=== PATIENT | male | born 1945 | race Caucasian/White ===

== ENCOUNTER → 2017-09-30 06:32 | Outpatient (CLI) | payer MEDICARE, SELFPAY ==
--- NOTE | 2017-09-30 | DI.MRI.S_ITS ---
PROCEDURE: MR LUMBAR SPINE WO CON INDICATIONS: lumbar radiculopathy TECHNIQUE: Noncontrast sagittal T1 spin echo and T2 fast echo, sagittal STIR, axial T1 and T2 fast spin echo through the lumbar spine. In cases with scoliosis, additional coronal T2 fast spin echo may be performed. COMPARISON: [facility], MR, L-SPINE WITHOUT CONTRAST, 10/04/2014, 13:34. FINDINGS: Image quality: Excellent. Alignment and Curvature: There is normal bony alignment. Bone Marrow: Marrow is of normal overall signal. No acute vertebral body compression fractures. Spinal Cord: Conus medullaris terminates at the L1-2 level. Visualized cord demonstrates normal signal and size. Paraspinous Soft Tissues: No paravertebral masses. Partially visualized renal cysts. L1-L2: Mild intervertebral disc or loss with broad-based posterior disc bulge. Facet joint and ligamentum flavum hypertrophy. The spinal canal and neural foramen are patent.. L2-L3: Mild intervertebral body disc height loss with broad-based posterior disc bulge and right paracentral disc protrusion. Findings effaces the right lateral recess. Facet joint and ligamentum flavum hypertrophy. Bilateral mild/moderate neural foraminal narrowing. L3-L4: Moderate intervertebral body disc height loss with broad-based posterior disc bulge. Facet joint and ligamentum flavum hypertrophy. There is moderate right and mild/moderate left neural foraminal narrowing. Minimal effacement of the left lateral recess otherwise the central spinal canal is patent. L4-L5: Mild broad-based posterior disc bulge. Facet joint hypertrophy. Mild bilateral neural foraminal narrowing. Patent central spinal canal. L5-S1: Mild broad-based posterior disc bulge. Central spinal canal and neural foramina are patent. IMPRESSION: 1. No significant change since the previous study. 2. Mild age-appropriate degenerative changes cause multilevel mild neural foraminal narrowing most prominent at L2-4. Effacement of the right L2-3 lateral recess otherwise the central spinal canal is patent. Dictated by: Ismael Walters M.D. on 09/30/2017 at 8:50 Approved by: Ismael Walters M.D. on 09/30/2017 at 8:58
== END ==
PROVIDERS: Visit Provider Orthopaedic Surgery
DX: M54.16 Radiculopathy, lumbar region (principal); M48.061 Spinal stenosis, lumbar region without neurogenic claudication; M51.26 Other intervertebral disc displacement, lumbar region
CPT/HCPCS: 72148

== ENCOUNTER 2017-12-02 06:07 | Inpatient (IN) | payer MEDICARE, SELFPAY ==
[2017-11-24 10:00] VITALS: BMI 27.2
[2017-12-02] VITALS (15 sets, daily range): BP systolic 100–154; BP diastolic 58–86; PULSE 52–83; RESP 6–17; TEMP 36.1–36.8; O2SAT 93–100; BMI 25.6
--- NOTE | 2017-12-02 | DI.RAD.S_ITS ---
PROCEDURE: XR LUMBAR SPINE 2-3V INDICATIONS: L2-3 TLIF TECHNIQUE: Fluoroscopic images were obtained during an operative procedure and submitted for interpretation following the completion of the procedure. COMPARISON: [facility], CR, XR LUMBAR SPINE 2 OR 3 VIEWS, 09/22/2017, 13:42. [facility], MR, MR LUMBAR SPINE WO CON, 09/30/2017, 7:05. [facility], CR, L-SPINE 2-3 VIEWS, 08/07/2013, 12:58. FINDINGS: These fluoroscopic images were performed for intraoperative localization. On these images, lumbar spine fixation hardware is seen, with pedicle screws at the apparent L2 and L3 levels. A disc spacer is seen at L2-L3. No cailin intraoperative complication is seen. Please correlate with intraoperative findings. IMPRESSION: Normal intraoperative examination. Dictated by: Mino Cerda M.D. on 12/02/2017 at 10:55 Approved by: Mino Cerda M.D. on 12/02/2017 at 10:56
[2017-12-02] MEDS: LACTATED RINGERS 1,000 ML 42 ML IV ×2 (06:55→10:25)
--- NOTE | 2017-12-02 07:20 | SUR.OPER ---
Prone on spine table, head in foam head support, padded chest and pelvic supports, gel pad at knees, lower legs supported by pillows; nipples, genitalia and toes free of pressure, arms secured on foam padded arm boards at <90 degrees abduction. Tape over blanket at thigh secured to table.
--- NOTE | 2017-12-02 07:55 | PM.PREOP ---
Pre-operative Note Interval Note Pre-op Check: Yes History & Physical Reviewed by Physician, Yes Exam Performed and Yes History & Physical exam performed today by Physician Changes: No
[2017-12-02] MEDS: CEFAZOLIN 2 GM/100 ML FROZ.PIGGY IV ×2 (08:04→16:43)
[2017-12-02] MEDS: BUPIVACAINE 0.25% W/ EPI VIAL 50 ML INJ (08:51)
[2017-12-02] MEDS: BUPIVACAINE LIPOSOME 266 MG/20 ML VIAL INJ (08:53)
[2017-12-02] MEDS: ACETAMINOPHEN IV 1,000 MG/100 ML VIAL 400 MG IV (10:16)
--- NOTE | 2017-12-02 10:33 | PM.OP.1 ---
Operative Date/Time/Diagnoses Date of procedure: 12/02/17 Time of procedure: 08:34 Pre-op diagnosis: 1. L2-3 spondylolisthesis 2. Lumbar scoliosis 3. Lumbar spinal stenosis L2-3, L3-4 Post-op diagnosis: same Procedure & Clinicians Procedure: 1. L2-3 Postero-lateral and posterior interbody fusion 2. L2-3 interbody cage placement. 3. L2-3 decompressive laminectomy with bilateral facetecomies 4. L2-3 Posterior non-segmental instrumentation 5. L3-4 right hemilaminectomy 6. [place] of bone marrow from iliac crest 7. Utilization of microsurgical technique and operating microscope Same procedure as scheduled: Yes Indications: Patient has been having chronic back pain and worsening lumbar radiculopathy. Patient failed multiple conservative management with worsening pain weakness and numbness in her lower extremity. Patient has been having difficulty performing activity of daily living. After discussing risks benefits of treatment options, patient elected proceed with surgery. Surgeon: Alvin Oscar Intermodal Dispatcher: Estephania Luo Click Yes if Unassisted: No Anesthesia Type: General Operative Notes Closure Type: primary Specimen(s): none sent Estimated Blood Loss (mL): 50 Procedure in detail: Patient was seen in the preoperative area. Risks and benefits of the surgery was discussed with the patient. Informed consent was obtained from the patient and placed in the chart. Surgical site was marked. Patient was taken to the operative room. General anesthesia was administered. Prophylactic antibiotic was given to the patient less than 30 min before the incision was made. Patient was placed into a prone position on the Feng table. Patient's back was then prepped and draped in the sterile fashion. Time-out was performed at this time. Using AP and lateral C-arm imaging the interval between L2-3 L3-4 was identified and marked on patient's back. A 2 inch incision 2 in from midline was made on the right side first. The fascia was incised in line with skin incision. Globus MARS retractors was placed inside the incision and docked onto the L2 lamina. Using microsurgical technique and operating microscope, a L2 laminectomy and L2-3 facetectomy was performed using a Kerrison rongeur. The disc space at L2-3 was identified. And a total diskectomy was performed at L2-3 level. The endplates were decorticated using a rasp and shaver. The total diskectomy and decortication was performed at L2-3 level in order to to accomplish a L2-3 fusion. The local bone from the laminectomy and facetectomy was saved for local bone grafting. After the total diskectomy and decortication was completed, Globus viacell bone graft material was combined with local bone that was harvested earlier. At this time, a separate skin is incision was made over the iliac crest. A Jamshidi needle was inserted into the iliac crest through a separate skin incision. 5 cc of bone marrow aspiration was obtained through the separate skin incision using a Jamshidi needle from the iliac crest. The bone marrow aspiration was combined with local bone and the via cell bone grafting material. The bone grafting material was placed into the L2-3 interbody space along with a expandable cage. The cage was expanded to its maximum height using the torque limiting screwdriver. At this time the MARS retractor was redirected over the L3 lamina. Using microsurgical technique and operating microscope, a L3-4 heminectomy was performed using the Kerrison rongeur. The ligamentum flavum was also resected at the side of the hemilaminectomy for further decompression of the epidural space. At this time a mirror image incision was made on the left side. The fascia was incised in line with the skin incision. Globus MARS retractor was inserted and docked onto the L2-3 posterolateral gutter. Using the power drill, posterior-lateral decortication was performed at L2-3 level until bleeding cortical bone was identified. The remaining bone grafting material was placed into the L2-3 posterior lateral gutter he order to accomplish posterolateral fusion at the L2-3 level. Using the double C-arm technique, pedicle screws were placed into the L2 and L3 pedicles bilaterally. This was done by placing the Jamshidi needle into the pedicles, then placing the guidewires over the Jamshidi needle, and finally placing the cannulated screws over the guidewires bilaterally. After the pedicle screws were placed, 2 titanium rods was locked into the heads of the pedicle screws using locking caps and torque limiting screwdriver. After all the hardware was placed, and confirmed with AP and lateral C-arm imaging, the wound was then irrigated with sterile normal saline and packed with Ray-Heriberto gauze for 3 min to accomplish hemostasis. After the gauze was removed the deep fascia was closed with #1 Vicryl suture. The subcutaneous layer was closed with 2-0 Vicryl. The skin was closed with skin david. Patient tolerated the procedure well. There were no complications. Complications: none Condition: stable Disposition: Acute Care Plan for aftercare: Admit to inpatient hospital
[2017-12-02] MEDS: HYDROMORPHONE 2 MG INJ 0.5 MG IV ×4 (11:10→11:50)
[2017-12-02] MEDS: LORazepam 2 MG/ML SYRINGE 0.25 MG IV ×2 (11:17→11:42)
[2017-12-02] MEDS: hydrOXYzine 50 MG/ML INJ 25 MG IM (11:18)
[2017-12-02] MEDS: fentaNYL 100 MCG/2 ML INJ 50 MCG IV ×2 (11:23→11:36)
[2017-12-02] MEDS: ONDANSETRON 4 MG/2 ML INJ IV (11:24)
[2017-12-02] MEDS: METOCLOPRAMIDE 10 MG/2 ML INJ IV (11:30)
--- NOTE | 2017-12-02 14:57 | PC.NURSE ---
arrival pt arrived from PACU in bed. repositioned on arrival. Dressing CDI to back. pt on 2L O2, sats 93-97%. Pt easily arrousable but sleeping comfortably no c/o pain. call light within reach.
--- NOTE | 2017-12-02 15:25 | PT.IIE ---
Current Diagnoses Other spondylosis with radiculopathy, lumbar region (12/02/17) Spinal stenosis, lumbar region without neurogenic claudication (12/02/17) Intervertebral disc disorders with radiculopathy, lumbar region (12/02/17) Surgery Performed Operation Date: 12/02/17 07:45 Actual Procedures p L3-4 Right Hemilaminectomy, L2-3 TLIF w/Posterior Instru.(Not Applicable) - Alvin Oscar MD Surgical History (Last Updated 11/24/17 @ 10:32 by Lorna No RN) History of arthroscopy of right shoulder (Acute) Hx of heart artery stent (Acute) Hx of lithotripsy (Acute) Medical History (Last Updated 11/24/17 @ 10:36 by Lorna No RN) Arthritis (Acute) Benign essential tremor (Acute) CAD (coronary artery disease) (Acute) Carotid artery stenosis (Acute) DVT (deep venous thrombosis) (Acute) HTN (hypertension) (Acute) Hyperlipidemia (Acute) Kidney stones (Acute) PAD (peripheral artery disease) (Acute) Sciatica (Acute) Sinus bradycardia (Acute) Skin cancer (Acute) Trigger thumb, left thumb (Acute) Walking pneumonia (Acute) Physical Therapy Inpatient Evaluation/Re-Eval M1 PT/OT-IP Prior Functional Status Start: 12/02/17 16:35 Freq: NEEDED Status: Active Protocol: Document 12/02/17 15:25 AB (Rec: 12/02/17 16:51 AB [email or web address]) Medical Review Prior Functional Status Medical History Reviewed Yes Communication able to make needs known Mobility and Gait pt stated that he is independent with all mobilities and ambulation without AD Social History Household Members none Living Arrangements House Number of Floors (Floors) One Floor Number of Stairs To Enter/Railing? none Home Environment High Toilet Walk in Shower Tub/Shower Built-In Shower Seat Home Equipment Front Wheel Walker Straight Cane Employment Status Retired Additional Social History Comment stated that his daughter in law with stay with him for 1 week to assist him. M2 PT-IP Current Condition Start: 12/02/17 16:35 Freq: NEEDED Status: Active Protocol: Document 12/02/17 15:25 AB (Rec: 12/02/17 16:51 AB [email or web address]) Physical Therapy Current Condition Current Condition Evaluation Date 12/02/17 Treatment Diagnosis L2-3 fusion,cage placement, laminectomy &instrumentation, L3-4 hemilami Onset Date 12/02/17 Precautions Lumbar Precautions Log Roll No Twisting Limit Bending Lifting Restriction of 10 lbs Gait Belt above Incisional Area Other Precautions Falls M3 PT-IP Subjective Start: 12/02/17 16:35 Freq: NEEDED Status: Active Protocol: Document 12/02/17 15:25 AB (Rec: 12/02/17 16:51 AB [email or web address]) Subjective Physical Therapy Visit Type Type Initial Evaluation Visit Start Time 15:25 Visit Stop Time 16:05 Total Visit Minutes 40 Number of MENTAL HEALTH ORDERLY Visits 0 Physical Therapy Visit Comments Patient Comments i want to get up Therapy Pain Assessment Pain When Pain Assessed During Mobility Pain Present Pain Present Pain Reported Location Lower Back Intensity 6 Scale Used Numeric (1 - 10) Description Tightness Pain Management Techniques Re-positioning Timing of Activity with Medications M4 PT-IP Mobility and Gait Start: 12/02/17 16:35 Freq: NEEDED Status: Active Protocol: Document 12/02/17 15:25 AB (Rec: 12/02/17 16:51 AB [email or web address]) PT-Bed Mobility Assessment Rolling Type of Rolling Log Rolling Level of Assist Minimal Assistance Supine to Sit Supine to Sit Moderate Assistance Sit to Supine Sit to Supine Minimal Assistance 1 Person Assistance Scooting Scooting to Edge of Bed Minimal Assistance PT-Transfer Assessment Sit to and From Stand Sit to and from Stand Minimal Assistance Equipment Transfer Assistive Device Gait Belt Front Wheeled Walker Orthotic/Prosthetic Devices or Brace: No Transfers Transfer Destination Chair Transfer Technique Stand Step Pivot Transfer Ability Level of Assist Moderate Assistance 1 Person Assistance Use of Upper Extremities Comments Mobility Comments pt with c/o dizziness with standing: BP 143/89 pt presents with (+) B hands tremors and increases with activity. Gait Assessment Gait Gait Assistance Required: Maximum Assistance Distance (Feet) 5 Able to Maintain Weight Bearing Status Yes During Gait Assistive Devices Assistive Device Gait Belt Front Wheeled Walker Orthotic/Prosthetic Devices or Brace: No Gait Deviations General Gait Pattern Antalgic Decreased Stride Length Decreased Feet Clearance Step-to Gait Factors Limiting Gait Function Factors Limiting Gait Function Decreased Activity Tolerance Decreased Strength Difficulty Following Directions Limited Range of Motion Pain Poor Balance Poor Safety Awareness Comments Gait Comments pt presents with shuffling gait with increase bilateral knee flexion during standing and ambulation. able to ambulate ~ 5 ft using FWW max A and cues and c/o increase dizziness and pt assist to sit back on EOB. BP 138/87 pt requested to just go back in bed and assisted requiring min A and cues for log roll bed mobility. positioned pt in bed. call light and table placed within reach. PT-Balance Assessment Sitting Balance and Reactions Static Sitting Balance Ability Good Dynamic Sitting Balance Ability Good Standing Balance and Reactions Static Standing Balance Ability Fair Dynamic Standing Balance Ability Poor Device Used FWW M5 PT-IP Objective Assessments Start: 12/02/17 16:35 Freq: NEEDED Status: Active Protocol: Document 12/02/17 15:25 AB (Rec: 12/02/17 16:51 AB [email or web address]) Orientation Orientation/Cognition Level of Alertness Alert Orientation Name Age Birthday Month Date Year Day of Week Place Situation Safety Awareness Decreased Safety Awareness Comments pt is alert but seems a little drowsy Gross Range of Motion Lower Extremity ROM Assessment Within Functional Limits Strength Lower Extremity Strength Assessment Within Functional Limits Muscle Tone Muscle Tone WNL Yes M6 PT-IP Treatment Start: 12/02/17 16:35 Freq: NEEDED Status: Active Protocol: Document 12/02/17 15:25 AB (Rec: 12/02/17 16:51 AB [email or web address]) Physical Therapy Treatment Education Education Provided Precautions Weight Bearing Status Post-Op Packet Safety M7 PT-IP Assessment and Plan Start: 12/02/17 16:35 Freq: NEEDED Status: Active Protocol: Document 12/02/17 15:25 AB (Rec: 12/02/17 16:51 AB [email or web address]) PT Summary Assessment and Plan Potential Rehabilitation Potential Fair Status of Condition at Evaluation Evolving Summary Impairments Pain ROM Strength Balance Coordination Sensation Tone Cognition Bed Mobility Transfers Gait Activity Tolerance Assessment Summary pt requiring one person assist with mobility and unable to tolerate much activity. requiring max A with ambulation using FWW. d/c plan depending on pt's progress. pt plans to go home with his daughter in law to assist and stay with him for 1 week. caregiver training will be conducted when appropriate and d/c plan depending if daughter in law will be able to safely assist pt at home. pt may require homehealth PT when going home but at this time, pt will benefit from SNF rehab. Goals Bed Mobility Goal Standby Assistance Transfer Goal Standby Assistance Gait Goal Standby Assistance Gait Distance 100 Days to Meet Goals 3 Frequency of Treatment Frequency Of Treatment Twice a Day Treatment Plan Physical Therapy Treatment Plan Bed Mobility Training Transfer Training Gait Training Therapeutic Exercise Balance Retraining Post Op Education Discharge Planning Hot or Cold Pack Neuromuscular Re-ed Coordination Retraining Manual Therapy Other Recommendations and Next Treatment ambulation, caregiver training Focus Recommendations To Nursing Amount of Assist Needed 1 Person Assist Discharge Recommendations PT Discharge Recommendations Home with 04/10 Assist Home Health SNF Rehab
[2017-12-02] MEDS: SODIUM CHLORIDE 0.9% 1,000 ML 100 ML IV (16:42)
[2017-12-02] MEDS: hydrOXYzine pamoate 25 MG CAPSULE PO ×2 (18:16→22:00)
[2017-12-02] MEDS: OXYCODONE IR 5 MG TABLET 10 MG PO ×2 (18:16→22:00)
[2017-12-02] MEDS: ISOSORBIDE MONONITRATE ER 30 MG TABLET PO (18:16)
[2017-12-02] MEDS: INFLUENZA VACCINE 0.5 ML SYRINGE IM (18:20)
[2017-12-02] MEDS: CARVEDILOL 3.125 MG TABLET 1.56 MG PO (20:02)
[2017-12-02] MEDS: DOCUSATE 100 MG CAPSULE PO (20:02)
[2017-12-02] MEDS: ASPIRIN EC 81 MG TABLET PO (20:02)
--- NOTE | 2017-12-02 21:27 | PC.NURSE ---
SHIFT NOTE slightly sleepy but arouses to verbal stimuli. spO2 WNL on room air, no desats noted even when pt sleeping. back dressing CDI. denies numbness/tingling. pt c/o pain rated 9/10. PRN vistaril and oxycodone given with good effects. able to stand/transfer with 1P mod assist and FWW. pt prefers to sit up in chair. pt currently resting. call light within reach.
[2017-12-03] VITALS (9 sets, daily range): BP systolic 106–165; BP diastolic 54–69; PULSE 58–75; RESP 16–18; TEMP 36.7–37.2; O2SAT 95–99
[2017-12-03] MEDS: CEFAZOLIN 2 GM/100 ML FROZ.PIGGY IV (00:31)
[2017-12-03] MEDS: OXYCODONE IR 5 MG TABLET 10 MG PO ×6 (00:33→23:56)
[2017-12-03] MEDS: SODIUM CHLORIDE 0.9% 1,000 ML 100 ML IV (03:16)
[2017-12-03] MEDS: hydrOXYzine pamoate 25 MG CAPSULE PO (06:05)
[2017-12-03 06:28] LABS: Hematocrit 35.8 % (41-53); Hemoglobin 12.4 g/dL (13.5-17.5)
[2017-12-03] MEDS: SODIUM CHLORIDE 0.9% FLUSH 10 ML IV ×2 (09:10→20:46)
[2017-12-03] MEDS: ROSUVASTATIN 10 MG TABLET 20 MG PO (09:11)
[2017-12-03] MEDS: LISINOPRIL 10 MG TABLET PO (09:12)
[2017-12-03] MEDS: DOCUSATE 100 MG CAPSULE PO ×2 (09:13→20:25)
[2017-12-03] MEDS: CARVEDILOL 3.125 MG TABLET 1.56 MG PO ×2 (09:13→20:23)
[2017-12-03] MEDS: CHOLECALCIFEROL (VITAMIN D3) 1,000 UNIT TABLET 1000 UNIT PO (09:13)
--- NOTE | 2017-12-03 09:27 | CM.DANOTE ---
Addendum entered by HERO Carter 12/03/17 14:30: ADD: Per PT, pt making progress and was 1PA and currently recommending likely safe d/c home with 24/7 assist by DIL and plan for CG training tomorrow prior to discharge. Plan: SW to follow tomorrow morning with pt regarding his interest in HH and if needed by time of discharge. BF Original Note: Patient is a 72 year old male who was admitted on 12/02/17 for TLIF. Pt has MCR and AARP for insurance and his PCP is not listed. EMR was reviewed. Per MD, pt tolerated procedure well but has a hx of pain management issues and medication not being very effective. Per PT, currently recommending SNF rehab but pending his progress since he is very motivated for home could make home with HH possible with family to stay for assist. SW met bedside with pt and adult son and explained role and updated white board. Pt confirmed that he lives at home alone in [place] since his spouse in June 2017 this year. Pt states that he is very Independent at baseline at drives, bikes, and gets out and about regularly. Pt states that he has 3 adult children who live in [place] and are supportive and will help if needed. Pt denies any hx of HH or SNF but states his preference would be home with his Dtr inlaw to stay with him for a week to assist and HH. Plan: SW to follow closely for further PT/OT today to determine if pt is safe for home with DIL to assist and HH vs SNF. Pt really wants home with HH. HERO Carter Discharge Planning/Care Management CM Discharge Assessment Start: 12/03/17 09:24 Freq: Status: Active Protocol: Document 12/03/17 09:25 BF (Rec: 12/03/17 09:27 [email or web address]) Discharge Planning Assessment Assigned Interface Designer HERO Soler Advance Directives? No Advance Directives on File Yes History Provided By Patient Medical Record Has Patient been admitted in last 30 No days? Prior Living Arrangements House Household Members none Type of transporation used prior to Drives own vehicle admit Comment Very Independent at baseline, very motivated to return home. Independent with ADL's Yes Is patient alert and oriented? Yes Caregiver for Another No DME Already Rented / Owned Elevated Toilet Seat FWW / Walker Cane Patient/Family Preference Home with Home Health Barriers to Discharge No Discharge Plan Home with Home Health Community [facility] Physical Therapy Occupational Therapy Transportation Arrangement Family to provide assist at d/ c pending pt's progress with PT If patient plan is home with home health No : Has signed face to face form been completed? Inpatient Status as of 12/02/17 Medicare Choice List Provided No SNF/HH Preference Waiting for further PT/OT Whiteboard Updated in Patient Room with Yes name and ext. # of Interface Designer Review Status In Process Please Provide Date Initial DC 12/03/17 Assessment Was Performed Next Review Type Continued Stay Review
--- NOTE | 2017-12-03 10:18 | PM.PNPO.1 ---
Subjective Date Patient Seen: 12/03/17 Time Patient Seen: 10:18 Interval history: POD #1 status post lumbar fusion with Dr. Oscar. Patient states his pain is at an 8/10 and not well controlled. He is urinating well. Patient has a history of DVT after surgery, at this time no clopidogrel until discharged due to increased risk of spinal epidural hematoma after surgery. Denies chest pain or shortness of breath. Exam Vital Signs (past 8 hours): - 12/03/17 04:00 12/03/17 07:40 12/03/17 09:13 Temperature 98.6 F 98.2 F Pulse Rate 58 L 61 61 Respiratory Rate 17 16 Blood Pressure 107/54 L 116/61 116/61 Pulse Oximetry 95 95 Oxygen Delivery Method Room Air Oxygen Flow Rate 0 Narrative Exam Narrative: Patient lying in bed in no acute distress. He is alert and oriented x3. Calves are soft, compressible, nontender bilaterally. Sensation intact light touch throughout bilateral lower extremities. Pulses are symmetrical. Objective Labs Result Diagrams: 12/03/17 05:52 Labs: Laboratory Results - last 24 hr 12/03/17 05:52 Hgb 12.4 L Hct 35.8 L Assessment & Plan Post-op (1) Status post lumbar and lumbosacral fusion by anterior technique: Current Visit: Yes Status: Acute Postoperative Procedures Operation Date: 12/02/17 07:45 Actual Procedures Side Surgeon p L3-4 Right Hemilaminectomy, L2-3 TLIF w/Posterior Instru. Not Applicable Alvin Oscar MD POD #1 status post lumbar fusion with Dr. Oscar. Will start patient on one time 10 mg Decadron dose. Continue current pain medication. Continue ASA and SCDs for DVT prophylaxis. Plan to restart clopidogrel once discharged. He will work with physical therapy today. No excessive bending, lifting, or twisting. Patient will likely DC in next 1-2 days once mobilizing safely and pain adequately controlled. Quality VTE Deep Vein Thrombosis/Pulmonary Embolism Present on Admission: No
--- NOTE | 2017-12-03 10:24 | PT.IPTN ---
Current Diagnoses Other spondylosis with radiculopathy, lumbar region (12/02/17) Spinal stenosis, lumbar region without neurogenic claudication (12/02/17) Intervertebral disc disorders with radiculopathy, lumbar region (12/02/17) Arthrodesis status (12/02/17) Surgery Performed Operation Date: 12/02/17 07:45 Actual Procedures p L3-4 Right Hemilaminectomy, L2-3 TLIF w/Posterior Instru.(Not Applicable) - Alvin Oscar MD Physical Therapy Treatment Note M2 PT-IP Current Condition Start: 12/02/17 16:35 Freq: NEEDED Status: Active Protocol: Document 12/02/17 15:25 AB (Rec: 12/02/17 16:51 AB [email or web address]) Physical Therapy Current Condition Current Condition Evaluation Date 12/02/17 Treatment Diagnosis L2-3 fusion,cage placement, laminectomy &instrumentation, L3-4 hemilami Onset Date 12/02/17 Precautions Lumbar Precautions Log Roll No Twisting Limit Bending Lifting Restriction of 10 lbs Gait Belt above Incisional Area Other Precautions Falls M3 PT-IP Subjective Start: 12/02/17 16:35 Freq: NEEDED Status: Active Protocol: Document 12/03/17 10:24 AB (Rec: 12/03/17 13:20 AB [id number]) Subjective Physical Therapy Visit Type Type Treatment Note Visit Start Time 10:24 Visit Stop Time 10:50 Total Visit Minutes 26 Number of FUGITIVE DETECTIVE Visits 0 Physical Therapy Visit Comments Patient Comments pt agreeable to do PT Therapy Pain Assessment Pain When Pain Assessed At Rest Pain Present Pain Present Pain Reported Location Lower Back Intensity 5 Scale Used Numeric (1 - 10) Pain Management Techniques Apply Cold Timing of Activity with Medications M4 PT-IP Mobility and Gait Start: 12/02/17 16:35 Freq: NEEDED Status: Active Protocol: Document 12/03/17 10:24 AB (Rec: 12/03/17 13:20 AB [id number]) PT-Transfer Assessment Sit to and From Stand Sit to and from Stand Minimal Assistance 1 Person Assistance Use of Upper Extremities Equipment Transfer Assistive Device Gait Belt Front Wheeled Walker Orthotic/Prosthetic Devices or Brace: No Transfers Transfer Destination Bed Comments Mobility Comments completed sit <>stand x 4 reps requiring min A and cues for techniques and safety. Gait Assessment Gait Gait Assistance Required: Minimum Assistance Distance (Feet) 40 Able to Maintain Weight Bearing Status Yes During Gait Assistive Devices Assistive Device Gait Belt Front Wheeled Walker Orthotic/Prosthetic Devices or Brace: No Gait Deviations General Gait Pattern Decreased Stride Length Decreased Feet Clearance Factors Limiting Gait Function Factors Limiting Gait Function Decreased Activity Tolerance Decreased Strength Limited Range of Motion Pain Poor Balance Poor Safety Awareness M5 PT-IP Objective Assessments Start: 12/02/17 16:35 Freq: NEEDED Status: Active Protocol: Document 12/02/17 15:25 AB (Rec: 12/02/17 16:51 AB [email or web address]) Orientation Orientation/Cognition Level of Alertness Alert Orientation Name Age Birthday Month Date Year Day of Week Place Situation Safety Awareness Decreased Safety Awareness Comments pt is alert but seems a little drowsy Gross Range of Motion Lower Extremity ROM Assessment Within Functional Limits Strength Lower Extremity Strength Assessment Within Functional Limits Muscle Tone Muscle Tone WNL Yes M6 PT-IP Treatment Start: 12/02/17 16:35 Freq: NEEDED Status: Active Protocol: Document 12/03/17 10:24 AB (Rec: 12/03/17 13:20 AB [id number]) Physical Therapy Treatment Education Education Provided Precautions Weight Bearing Status Post-Op Packet Safety M7 PT-IP Assessment and Plan Start: 12/02/17 16:35 Freq: NEEDED Status: Active Protocol: Document 12/03/17 10:24 AB (Rec: 12/03/17 13:20 AB [id number]) PT Summary Assessment and Plan Potential Rehabilitation Potential Good Summary Impairments Pain ROM Strength Balance Coordination Sensation Bed Mobility Transfers Gait Activity Tolerance Progress Towards Goals Progressing Toward Goals Assessment Summary pt requiring one person assist with mobility. pt plans to go home with daughter in law to assist him. caregiver set up for tomorrow. pt stated that he will let his daughter in law know. Goals Bed Mobility Goal Standby Assistance Transfer Goal Standby Assistance Gait Goal Standby Assistance Gait Distance 100 Days to Meet Goals 3 Frequency of Treatment Frequency Of Treatment Twice a Day Treatment Plan Physical Therapy Treatment Plan Bed Mobility Training Transfer Training Gait Training Therapeutic Exercise Balance Retraining Post Op Education Discharge Planning Hot or Cold Pack Neuromuscular Re-ed Coordination Retraining Manual Therapy Other Recommendations and Next Treatment ambulation, caregiver training Focus Recommendations To Nursing Amount of Assist Needed 1 Person Assist Discharge Recommendations PT Discharge Recommendations Home with 04/10 Assist
[2017-12-03] MEDS: ASPIRIN EC 81 MG TABLET PO ×2 (10:45→20:25)
[2017-12-03] MEDS: DEXAMETHASONE 4 MG TABLET 10 MG PO (10:45)
--- NOTE | 2017-12-03 15:15 | PT.IPTN ---
Current Diagnoses Other spondylosis with radiculopathy, lumbar region (12/02/17) Spinal stenosis, lumbar region without neurogenic claudication (12/02/17) Intervertebral disc disorders with radiculopathy, lumbar region (12/02/17) Arthrodesis status (12/02/17) Surgery Performed Operation Date: 12/02/17 07:45 Actual Procedures p L3-4 Right Hemilaminectomy, L2-3 TLIF w/Posterior Instru.(Not Applicable) - Alvin Oscar MD Physical Therapy Treatment Note M2 PT-IP Current Condition Start: 12/02/17 16:35 Freq: NEEDED Status: Active Protocol: Document 12/02/17 15:25 AB (Rec: 12/02/17 16:51 AB [email or web address]) Physical Therapy Current Condition Current Condition Evaluation Date 12/02/17 Treatment Diagnosis L2-3 fusion,cage placement, laminectomy &instrumentation, L3-4 hemilami Onset Date 12/02/17 Precautions Lumbar Precautions Log Roll No Twisting Limit Bending Lifting Restriction of 10 lbs Gait Belt above Incisional Area Other Precautions Falls M3 PT-IP Subjective Start: 12/02/17 16:35 Freq: NEEDED Status: Active Protocol: Document 12/03/17 15:15 AB (Rec: 12/03/17 16:47 AB [id number]) Subjective Physical Therapy Visit Type Type Progress Note Visit Start Time 15:15 Visit Stop Time 15:55 Total Visit Minutes 40 Number of NEPHROLOGY SOCIAL WORKER Visits 0 Physical Therapy Visit Comments Patient Comments pt agreeable to do PT Therapy Pain Assessment Pain When Pain Assessed At Rest Pain Present Pain Present Pain Reported Location Lower Back Intensity 6 Scale Used Numeric (1 - 10) M4 PT-IP Mobility and Gait Start: 12/02/17 16:35 Freq: NEEDED Status: Active Protocol: Document 12/03/17 15:15 AB (Rec: 12/03/17 16:47 AB [id number]) PT-Bed Mobility Assessment Rolling Type of Rolling Log Rolling Level of Assist Standby Assistance Supine to Sit Supine to Sit Standby Assistance Sit to Supine Sit to Supine Standby Assistance Scooting Scooting to Edge of Bed Standby Assistance PT-Transfer Assessment Sit to and From Stand Sit to and from Stand Standby Assistance Equipment Transfer Assistive Device Gait Belt Front Wheeled Walker Transfers Transfer Destination Chair Toilet Transfer Technique Stand Step Pivot Transfer Ability Level of Assist Standby Assistance 1 Person Assistance Comments Mobility Comments bed mobility training and transfer training conducted. pt. required increase cues for sequencing, techniques and safety. pt seemed to have increase confusion this afternoon affecting motor planning. informed nurse. Gait Assessment Gait Gait Assistance Required: Standby Assistance Distance (Feet) 100 Able to Maintain Weight Bearing Status Yes During Gait Assistive Devices Assistive Device Gait Belt Front Wheeled Walker Orthotic/Prosthetic Devices or Brace: No Gait Deviations General Gait Pattern Decreased Stride Length Decreased Feet Clearance Factors Limiting Gait Function Factors Limiting Gait Function Decreased Activity Tolerance Decreased Strength Difficulty Following Directions Incoordination Limited Range of Motion Pain Poor Balance Poor Safety Awareness M5 PT-IP Objective Assessments Start: 12/02/17 16:35 Freq: NEEDED Status: Active Protocol: Document 12/02/17 15:25 AB (Rec: 12/02/17 16:51 AB [email or web address]) Orientation Orientation/Cognition Level of Alertness Alert Orientation Name Age Birthday Month Date Year Day of Week Place Situation Safety Awareness Decreased Safety Awareness Comments pt is alert but seems a little drowsy Gross Range of Motion Lower Extremity ROM Assessment Within Functional Limits Strength Lower Extremity Strength Assessment Within Functional Limits Muscle Tone Muscle Tone WNL Yes M6 PT-IP Treatment Start: 12/02/17 16:35 Freq: NEEDED Status: Active Protocol: Document 12/03/17 15:15 AB (Rec: 12/03/17 16:47 AB [id number]) Physical Therapy Treatment Education Education Provided Precautions Weight Bearing Status Post-Op Packet Safety M7 PT-IP Assessment and Plan Start: 12/02/17 16:35 Freq: NEEDED Status: Active Protocol: Document 12/03/17 15:15 AB (Rec: 12/03/17 16:47 AB [id number]) PT Summary Assessment and Plan Potential Rehabilitation Potential Good Summary Impairments Pain ROM Strength Balance Coordination Sensation Tone Cognition Bed Mobility Transfers Gait Activity Tolerance Progress Towards Goals Progressing Toward Goals Assessment Summary pt progressing well with mobility but seemed to have increase confusion this afternoon affecting motor planning requiring increase cues for all tasks. Caregiver training is set up for 9 am tomorrow morning with daughter in law and son. Pt stated that he will inform family regarding caregiver training. Goals Bed Mobility Goal Standby Assistance Transfer Goal Standby Assistance Gait Goal Standby Assistance Gait Distance 100 Days to Meet Goals 3 Frequency of Treatment Frequency Of Treatment Twice a Day Treatment Plan Physical Therapy Treatment Plan Bed Mobility Training Transfer Training Gait Training Therapeutic Exercise Balance Retraining Post Op Education Discharge Planning Hot or Cold Pack Neuromuscular Re-ed Coordination Retraining Manual Therapy Other Recommendations and Next Treatment ambulation, caregiver training Focus Recommendations To Nursing Amount of Assist Needed 1 Person Assist Discharge Recommendations PT Discharge Recommendations Home with 24/7 Assist
[2017-12-03] MEDS: ISOSORBIDE MONONITRATE ER 30 MG TABLET PO (16:36)
--- NOTE | 2017-12-03 17:35 | OT.IP.EVAL ---
Current Diagnoses Other spondylosis with radiculopathy, lumbar region (12/02/17) Spinal stenosis, lumbar region without neurogenic claudication (12/02/17) Intervertebral disc disorders with radiculopathy, lumbar region (12/02/17) Arthrodesis status (12/02/17) Surgery Performed Operation Date: 12/02/17 07:45 Actual Procedures p L3-4 Right Hemilaminectomy, L2-3 TLIF w/Posterior Instru.(Not Applicable) - Alvin Oscar MD Past Medical History (Last Updated 11/24/17 @ 10:36 by Lorna No, RN) Arthritis (Acute) Benign essential tremor (Acute) CAD (coronary artery disease) (Acute) Carotid artery stenosis (Acute) DVT (deep venous thrombosis) (Acute) HTN (hypertension) (Acute) Hyperlipidemia (Acute) Kidney stones (Acute) PAD (peripheral artery disease) (Acute) Sciatica (Acute) Sinus bradycardia (Acute) Skin cancer (Acute) Trigger thumb, left thumb (Acute) Walking pneumonia (Acute) Surgical History (Last Updated 11/24/17 @ 10:32 by Lorna No RN) History of arthroscopy of right shoulder (Acute) Hx of heart artery stent (Acute) Hx of lithotripsy (Acute) Occupational Therapy Inpatient Evaluation/Re-Eval M1 PT/OT-IP Prior Functional Status Start: 12/02/17 16:35 Freq: NEEDED Status: Active Protocol: Document 12/02/17 15:25 AB (Rec: 12/02/17 16:51 AB [email or web address]) Medical Review Prior Functional Status Medical History Reviewed Yes Communication able to make needs known Mobility and Gait pt stated that he is independent with all mobilities and ambulation without AD Social History Household Members none Living Arrangements House Number of Floors (Floors) One Floor Number of Stairs To Enter/Railing? none Home Environment High Toilet Walk in Shower Tub/Shower Built-In Shower Seat Home Equipment Front Wheel Walker Straight Cane Employment Status Retired Additional Social History Comment stated that his daughter in law with stay with him for 1 week to assist him. M1 PT/OT-IP Prior Functional Status Start: 12/03/17 17:18 Freq: NEEDED Status: Active Protocol: Document 12/03/17 14:05 [facility] (Rec: 12/03/17 17:34 [facility] [email or web address]) Medical Review Prior Functional Status Medical History Reviewed Yes Communication able to make needs known Mobility and Gait pt stated that he is independent with all mobilities and ambulation without AD Social History Household Members none Living Arrangements House Number of Floors (Floors) One Floor Number of Stairs To Enter/Railing? none Home Environment High Toilet Walk in Shower Tub/Shower Built-In Shower Seat Home Equipment Front Wheel Walker Straight Cane Employment Status Retired Additional Social History Comment stated that his daughter in law with stay with him for 1 week to assist him. M2 OT-IP Current Condition Start: 12/03/17 17:18 Freq: Status: Active Protocol: Document 12/03/17 14:05 [facility] (Rec: 12/03/17 17:34 [facility] [email or web address]) Occupational Therapy Current Condition Current Condition Evaluation Date 12/03/17 Treatment Diagnosis Spinal Stenosis Diagnosis Onset Date 12/02/17 Post Operative Precautions Lumbar Precautions Log Roll No Twisting Limit Bending Lifting Restriction of 10 lbs Gait Belt above Incisional Area Other Precautions Falls M3 OT- IP Subjective and Pain Start: 12/03/17 17:18 Freq: Status: Active Protocol: Document 12/03/17 14:05 [facility] (Rec: 12/03/17 17:34 [facility] [email or web address]) OT- Subjective Occupational Therapy Visit Type Type Initial Evaluation Visit Start Time 14:05 Visit Stop Time 14:35 Total Visit Minutes 30 Occupational Therapy Visit Comments Patient/Caregiver Goals Pt wanting to go home when medically stable. OT Pain Assessment Pain When Pain Assessed At Rest Pain Present Pain Present Pain Reported Location Lower Back Intensity 8 M4 OT- IP ADL's Start: 12/03/17 17:18 Freq: Status: Active Protocol: Document 12/03/17 14:05 [facility] (Rec: 12/03/17 17:34 [facility] [email or web address]) OT ADL-Dressing General Eval Lower Body Dressing Ability Maximum Assistance Areas Needing Assistance Socks Comments OT Dressing Comments Pt has all AED at home for LB dressing and has good understanding for use. OT ADL-Toileting General Evaluation Toileting Ability Standby Assistance Comments OT Toileting Comments Pt able to use FWW to get into bathroom and use of urinal. Suggested pt to use urinal at home as per pt bathroom 20ft away. M6 OT- IP Functional Cognition Start: 12/03/17 17:18 Freq: Status: Active Protocol: Document 12/03/17 14:05 [facility] (Rec: 12/03/17 17:34 [facility] [email or web address]) Cognitive Factors Limiting Selfcare Function Cognitive Ability Level of Alertness Alert Patient Orientation Name Place Situation Attention Span Ability Capable of Focused Attention Capable of Sustained Attention Ability to Follow Commands Able to Follow Multi-Step Commands Memory Description No Deficits Noted Safety Awareness Underestimates Need for Assistance Cognitive Comments Cognitive Assessment Comments Pt able to recall all precautions and follow commands with good safety and understanding. OT- Vision and Hearing OT- Hearing Assessment OT- Hearing Assessment WFL M7 OT- IP Mobility and Balance Start: 12/03/17 17:18 Freq: Status: Active Protocol: Document 12/03/17 14:05 [facility] (Rec: 12/03/17 17:34 [facility] [email or web address]) OT- Bed Mobility Assessment Rolling Type of Rolling Roll to Right Level of Assistance Standby Assistance Supine to Sit Supine to Sit Assist Standby Assistance Sit to Supine Sit to Supine Assist Standby Assistance OT-Transfer Assessment Sit to and From Stand Sit to and from Stand Contact Guard Assistance Transfers Transfer Ability Standby Assistance Contact Guard Assistance Technique Transfer Destination Bed Transfer Technique Stand Step Pivot Devices Transfer Assistive Devices Gait Belt Front Wheeled Walker OT- Balance Assessment Sitting Balance and Reactions Static Sitting Balance Ability Normal Dynamic Sitting Balance Ability Normal Standing Balance and Reactions Static Standing Balance Ability Good M8 OT- IP Objective Assessments Start: 12/03/17 17:18 Freq: Status: Active Protocol: Document 12/03/17 14:05 [facility] (Rec: 12/03/17 17:34 [facility] [email or web address]) OT Gross Range of Motion Upper Extremity Range of Motion Assessment Within Functional Limits OT Strength Upper Extremity Strength Assessment Within Functional Limits M9 OT- IP Assessment and Plan Start: 12/03/17 17:18 Freq: Status: Active Protocol: Document 12/03/17 14:05 [facility] (Rec: 12/03/17 17:34 [facility] [email or web address]) OT Summary Assessment and Plan Potential Rehabilitation Potential Good Analytic Complexity at Evaluation Low Summary OT Impairments Functional Mobility Bathing Shower Transfers Progress Towards Goals Progressing Toward Goals Assessment Summary Pt Low complexity and main barrier activity tolerance and will have family assist at home. Goals Grooming Goal Independent Dressing Goal Independent Toileting Goal Independent Bathing Goal Standby Assistance Toilet Transfer Goal Independent Shower Transfer Goal Standby Assistance Patient/Caregiver Education Goal Demonstrate Post-Op Precautions Caregiver Independent Assisting Patient Days to Meet Goals 2 Frequency of Treatment Frequency Of Treatment Once a Day Treatment Plan OT Treatment Plan ADL Training Functional Mobility Patient/Family Education Discharge Planning Other Treatment Recommendations and Next Shower, family training Treatment Focus Discharge Recommendations OT Discharge Recommendations Home with Assistance
[2017-12-03] MEDS: SENNOSIDES 8.6 MG TABLET 17.2 MG PO (20:24)
[2017-12-04 03:30] VITALS: BP 147/79; PULSE 63; RESP 17; TEMP 36.3; O2SAT 99
[2017-12-04] MEDS: OXYCODONE IR 5 MG TABLET 10 MG PO ×2 (03:33→08:35)
[2017-12-04 07:30] VITALS: BP 135/70; PULSE 61; RESP 16; TEMP 36.4; O2SAT 97
[2017-12-04] MEDS: ASPIRIN EC 81 MG TABLET PO (08:35)
[2017-12-04 08:36] VITALS: BP 135/70; PULSE 68
[2017-12-04] MEDS: DOCUSATE 100 MG CAPSULE PO (08:36)
[2017-12-04] MEDS: ROSUVASTATIN 10 MG TABLET 20 MG PO (08:36)
[2017-12-04] MEDS: SODIUM CHLORIDE 0.9% FLUSH 10 ML IV (08:36)
[2017-12-04] MEDS: LISINOPRIL 10 MG TABLET PO (08:36)
[2017-12-04] MEDS: CARVEDILOL 3.125 MG TABLET 1.56 MG PO (08:36)
[2017-12-04] MEDS: CHOLECALCIFEROL (VITAMIN D3) 1,000 UNIT TABLET 1000 UNIT PO (08:36)
--- NOTE | 2017-12-04 09:50 | PT.IPTN ---
Current Diagnoses Other spondylosis with radiculopathy, lumbar region (12/02/17) Spinal stenosis, lumbar region without neurogenic claudication (12/02/17) Intervertebral disc disorders with radiculopathy, lumbar region (12/02/17) Arthrodesis status (12/02/17) Surgery Performed Operation Date: 12/02/17 07:45 Actual Procedures p L3-4 Right Hemilaminectomy, L2-3 TLIF w/Posterior Instru.(Not Applicable) - Alvin Oscar MD Physical Therapy Treatment Note M2 PT-IP Current Condition Start: 12/02/17 16:35 Freq: NEEDED Status: Active Protocol: Document 12/02/17 15:25 AB (Rec: 12/02/17 16:51 AB [email or web address]) Physical Therapy Current Condition Current Condition Evaluation Date 12/02/17 Treatment Diagnosis L2-3 fusion,cage placement, laminectomy &instrumentation, L3-4 hemilami Onset Date 12/02/17 Precautions Lumbar Precautions Log Roll No Twisting Limit Bending Lifting Restriction of 10 lbs Gait Belt above Incisional Area Other Precautions Falls M3 PT-IP Subjective Start: 12/02/17 16:35 Freq: NEEDED Status: Active Protocol: Document 12/04/17 08:50 [facility] (Rec: 12/04/17 09:50 [facility] [id number]) Subjective Physical Therapy Visit Type Type Treatment Note Visit Start Time 08:50 Visit Stop Time 09:35 Total Visit Minutes 45 Number of ADVERTISING SALES REPRESENTATIVE Visits 1 Physical Therapy Visit Comments Patient Comments Pt wanting to go home today. Pt's family present to CG training. Therapy Pain Assessment Pain When Pain Assessed At Rest Pain Present Pain Present Pain Reported Location Lower Back Intensity 6 Scale Used Numeric (1 - 10) M4 PT-IP Mobility and Gait Start: 12/02/17 16:35 Freq: NEEDED Status: Active Protocol: Document 12/04/17 08:50 [facility] (Rec: 12/04/17 09:50 [facility] [id number]) PT-Bed Mobility Assessment Rolling Type of Rolling Log Rolling Level of Assist Standby Assistance Supine to Sit Supine to Sit Standby Assistance Sit to Supine Sit to Supine Standby Assistance Scooting Scooting to Edge of Bed Standby Assistance PT-Transfer Assessment Sit to and From Stand Sit to and from Stand Standby Assistance Equipment Transfer Assistive Device Gait Belt Front Wheeled Walker Transfers Transfer Destination Bed Chair Comments Mobility Comments Bed mobility training and transfer training conducted with son and [id number]. Pt able to get in and out of bed with [id number] standing by. Pt able to sequence log roll in and out of bed safely. Gait Assessment Gait Gait Assistance Required: Standby Assistance Distance (Feet) 200 Able to Maintain Weight Bearing Status Yes During Gait Assistive Devices Assistive Device Gait Belt Front Wheeled Walker Orthotic/Prosthetic Devices or Brace: No Gait Deviations General Gait Pattern Decreased Stride Length Decreased Feet Clearance Factors Limiting Gait Function Factors Limiting Gait Function Decreased Activity Tolerance Decreased Strength Limited Range of Motion Pain Poor Balance Comments Gait Comments Pt able to ambulate in lock[place] ~ 200ft with [id number] GB/ FWW/SBA. Pt has good safety awareness and had a step through gait pattern. Pt recalled what PT had mentioned yesterday about his stride length and widening his REDD for safe ambulation. Stair Climbing Assessment Comments Stair Climbing Comments Pt has no stairs. PT-Balance Assessment Sitting Balance and Reactions Static Sitting Balance Ability Good Dynamic Sitting Balance Ability Good Standing Balance and Reactions Static Standing Balance Ability Fair Dynamic Standing Balance Ability Poor Device Used FWW M5 PT-IP Objective Assessments Start: 12/02/17 16:35 Freq: NEEDED Status: Active Protocol: Document 12/02/17 15:25 AB (Rec: 12/02/17 16:51 AB [email or web address]) Orientation Orientation/Cognition Level of Alertness Alert Orientation Name Age Birthday Month Date Year Day of Week Place Situation Safety Awareness Decreased Safety Awareness Comments pt is alert but seems a little drowsy Gross Range of Motion Lower Extremity ROM Assessment Within Functional Limits Strength Lower Extremity Strength Assessment Within Functional Limits Muscle Tone Muscle Tone WNL Yes M6 PT-IP Treatment Start: 12/02/17 16:35 Freq: NEEDED Status: Active Protocol: Document 12/03/17 15:15 AB (Rec: 12/03/17 16:47 AB [id number]) Physical Therapy Treatment Education Education Provided Precautions Weight Bearing Status Post-Op Packet Safety M7 PT-IP Assessment and Plan Start: 12/02/17 16:35 Freq: NEEDED Status: Active Protocol: Document 12/04/17 08:50 [facility] (Rec: 12/04/17 09:50 [facility] [id number]) PT Summary Assessment and Plan Potential Rehabilitation Potential Good Status of Condition at Evaluation Evolving Summary Impairments Pain ROM Strength Balance Coordination Sensation Tone Cognition Bed Mobility Transfers Gait Activity Tolerance Progress Towards Goals Safe For Discharge Assessment Summary Pt had no confusion this morning. Pt recalled 3/3 precautions and was able to increase ambulation to ~200ft. Pt pain remains 6/10 and pt stated it remains 6/10 even after taking pain meds. Pt is able to get in and out of bed SBA and care attendant training was conducted with son and [id number]. Pt has all equipment needed to be safe at home wit assist. Pt seems able to d/c home with assist of [id number]. Goals Bed Mobility Goal Standby Assistance Transfer Goal Standby Assistance Gait Goal Standby Assistance Gait Distance 100 Days to Meet Goals 3 Frequency of Treatment Frequency Of Treatment Twice a Day Treatment Plan Physical Therapy Treatment Plan Bed Mobility Training Transfer Training Gait Training Therapeutic Exercise Balance Retraining Post Op Education Discharge Planning Hot or Cold Pack Neuromuscular Re-ed Coordination Retraining Manual Therapy Recommendations To Nursing Amount of Assist Needed 1 Person Assist Discharge Recommendations PT Discharge Recommendations Home with 04/10 Assist
--- NOTE | 2017-12-04 10:17 | CM.DPC ---
DCP/cont Per PA patient to discharge home today. Patient has declined any HH or OP PT. Met with patient: patient agreeable to discharge and stated that he knows all the exercises and sees no need for HH/PT or OP PT. He confirmed his DIL will stay for as long as needed, but at least a week. Son and DIL will merchandise pickup/receiving associate patient when ready. Patient has no needs or concerns at this time. Plan: patient to discharge home with / assistance provided by DIL. CM team available if needed.
--- NOTE | 2017-12-04 12:01 | PC.NURSE ---
Addendum entered by Kathleen Hernandez R.N. 12/04/17 13:59: At 1245, discharge instructions reviewed with pt's son Rupesh in room. No voiced concerns. pt states is ready to go home, has all belongings. Pt left unit via wheelchair in no distress. pt's son Rupesh present to drive pt home. Original Note: Day Shift- PIV removed from left hand without difficulty. Lower back surgical site bulky dressing removed. 2 incisions well approximated with david intact. No S/S of infection, minimal surrounding bruising noted. One coversite dressing applied and dated. verbal and written Discharge instructions reviewed with pt on S/S of infection, wound care, mobility, pain management, diet/fluid intake, monitoring bowels, medication review. And additional information in discharge packet for DI for lumbar fusion, preventing falls, and S/S of stroke. Encouraged pt to write a list of when meds were taken, any symptoms, a timeline to report to Dr's office if needed. Pt's son Rupesh to drive pt home and bulk picker prescriptions for pt.
--- NOTE | 2017-12-08 11:00 | PM.DS.1 ---
History of Present Illness Date Patient Seen: 12/04/17 Chief complaint: [id number] Narrative: Patient seen bedside by Dr. Kern s/p L2-3 TLIF on 12/02/[address] Oscar. Patient's pain was better controlled today. He is stable and ready for discharge. Discharge Providers Date of admission: 12/02/17 06:07 Consults: 12/02/17 12:15 Consult to Occupational Therapy Evaluate & Treat Comment: Physician Instructions: Evaluate and treat Consult to Physical Therapy Evaluate & Treat Comment: Physician Instructions: Evaluate and Treat Discharge provider: Holly Carreno PA-C Summary Discharge Diagnosis: 1. OA of lumbar spine with radiculopathy 2. Lumbar spine stenosis with neurogenic claudication 3. Lumbar disc herniation with radiculopathy. Hospital Course: Patient was admitted to the hospital on 12/02/17 s/p L2-[address] Oscar. Patient tolerated the procedure well with no complications and was transferred to the acute care floor. Patient was seen by PT who recommended that he patient be discharged home. Patient was stable and ready for d/c on 12/04/17. Status at Discharge Cognitive/behavioral status at discharge: Alert & oriented Functional status at discharge: uses cane/walker Overall status at discharge: patient is progressing back to baseline Time Spent with Patient Less than 30 minutes Exam Vital Signs (past 8 hours): Oxygen Delivery Method Room Air Oxygen Flow Rate 0 Narrative Exam Narrative: WDWN NAD A&O. Surgical dressing CDI with no focal neurological deficits noted. Objective Labs Result Diagrams: 12/03/17 05:52 Discharge Plan Discharge Plan Patient Disposition: Home Discharge Med Rec/Prescriptions Prescriptions: New acetaminophen 325 mg Tablet 650 mg PO Q6HR PRN (Reason: Pain, Mild (1-3)) Qty: 60 RF: 0 docusate sodium 100 mg Capsule 100 mg PO BID Qty: 60 RF: 0 hydroxyzine pamoate 25 mg Capsule 25 mg PO Q6HR Qty: 40 RF: 0 oxycodone 5 mg capsule 5 mg PO Q4-6H PRN (Reason: pain) Qty: 60 RF: 0 Continue cholecalciferol (vitamin D3) [Vitamin D3] 1,000 unit Capsule 1,000 unit PO DAILY Qty: 0 RF: 0 [id number]-[id number]-ast [krill oil] [id number],[id number] mg Capsule 1 cap PO Q OTHER DAY Qty: 0 RF: 0 rosuvastatin [Crestor] 20 MG tablet 20 mg PO QDAY Qty: 0 RF: 0 lisinopril [Zestril] 5 MG tablet 10 mg PO QAM Qty: 0 RF: 0 isosorbide mononitrate 30 mg Tablet Extended Release 24 Hr 30 mg PO QPM RF: 0 clopidogrel 75 mg Tablet 75 mg PO DAILY RF: 0 aspirin [Aspir-81] 81 mg Tablet,Delayed Release (Dr/Ec) 81 mg PO BID RF: 0 carvedilol 3.125 mg Tablet 1.56 mg PO BID RF: 0 Follow up/Referrals: Alvin Oscar MD [Physician] - (10-14 days with [facility]) Visit Report/Discharge Packet Instructions: How to Prevent Falls, DI for Transforaminal Lumbar Interbody Fusion Stand Alone Forms: Surgery Discharge Visit Report Forms: Stroke Signs & Symptoms Discharge Data Attending Provider: Alvin Oscar Admit Date/Time: 12/02/17 06:07 Discharges patient from system. Discharge Date/Time: 12/04/17 13:05 Quality VTE Deep Vein Thrombosis/Pulmonary Embolism Present on Admission: No
== END 2017-12-04 13:05 | disposition home or self-care (01) | DRG 455 ==
PROVIDERS: Admitting Provider Orthopaedic Surgery Orthopaedic Surgery of the Spine; Visit Provider Orthopaedic Surgery Orthopaedic Surgery of the Spine
PROC: 0SG00AJ Fusion of Lumbar Vertebral Joint with Interbody Fusion Device, Posterior Approach, Anterior Column, Open Approach (ICD-10-PCS; principal; 2017-12-02 07:45)
DX: M43.16 Spondylolisthesis, lumbar region (principal); M47.26 Other spondylosis with radiculopathy, lumbar region; M48.062 Spinal stenosis, lumbar region with neurogenic claudication; M51.16 Intervertebral disc disorders with radiculopathy, lumbar region; Z95.818 Presence of other cardiac implants and grafts; I25.10 Atherosclerotic heart disease of native coronary artery without angina pectoris; Z86.718 Personal history of other venous thrombosis and embolism; G25.0 Essential tremor; I10 Essential (primary) hypertension; E78.5 Hyperlipidemia, unspecified; M41.26 Other idiopathic scoliosis, lumbar region
CPT/HCPCS: 36415; 72100; 76001; 85014; 85018; 90471; 90656; 97116; 97162; 97165; 97530; 97535; C1776; C9290; J0131; J0330; J0690; J1100; J1170; J2060; J2250; J2405; J2704; J2765; J3010; J3410; Q2038

== ENCOUNTER → 2018-05-16 10:18 | Outpatient (CLI) | payer MEDICARE, SELFPAY ==
[2017-12-02 16:28] VITALS: BMI 25.6
[2018-05-16 12:37] LABS: Alanine Aminotransferase 33 IU/L (21-72); Albumin 4.9 g/dL (3.5-5.0); Albumin Globulin Ratio 1.6 (1.0-2.8); Alkaline Phosphatase 40 U/L (38-126); Aspartate Aminotransferase 26 IU/L (17-59); BUN Creatinine Ratio 33.8 (6-22); Bilirubin Total 0.5 mg/dL (0.2-1.3); Blood Urea Nitrogen 27 mg/dL (9-20); Calcium 10.2 mg/dL (8.4-10.2); Carbon Dioxide 27 mmol/L (22-32); Chloride 104 mmol/L (98-107); Cholesterol 210 mg/dL (140-199); Estimated Glomerular Filt Rate > 60.0 mL/min (>60); Globulin 3.1 g/dL (1.7-4.1); Glucose 87 mg/dL (80-110); HDL Cholesterol 82 mg/dL (40-60); HEMOLYSIS < 15 (0-50); LDL Cholesterol Calculated 118 mg/dL (<100); Potassium 5.1 mmol/L (3.4-5.1); Sodium 141 mmol/L (137-145); Triglycerides 49 mg/dL (35-150)
== END ==
PROVIDERS: PCP Internal Medicine Interventional Cardiology; Visit Provider Internal Medicine Interventional Cardiology
DX: I25.10 Atherosclerotic heart disease of native coronary artery without angina pectoris (principal)
CPT/HCPCS: 36415; 80053; 80061

== ENCOUNTER → 2018-06-13 11:07 | Outpatient (CLI) | payer MEDICARE, SELFPAY ==
[2017-12-02 16:28] VITALS: BMI 25.6
--- NOTE | 2018-06-13 | DI.CT.S_ITS ---
PROCEDURE: CT LUMBAR SPINE WO CON INDICATIONS: Low back pain TECHNIQUE: Noncontrast 3 mm thick sections acquired from the T12 level to the sacrum. Sagittal and coronal reformats were constructed. For radiation dose reduction, the following was used: automated exposure control. COMPARISON: [facility], MR, L-SPINE WITHOUT CONTRAST, 09/17/2013, 7:16. [facility], MR, L-SPINE WITHOUT CONTRAST, 10/04/2014, 13:34. [facility], MR, MR LUMBAR SPINE WO CON, 09/30/2017, 7:05. [facility], CR, XR LUMBAR SPINE 2-3V, 12/02/2017, 8:36. FINDINGS: Image quality: Diagnostic Bones: No acute vertebral body compression fractures. No suspicious lytic or blastic bony lesions. Central spinal caliber is of normal overall caliber. Mild grade 1 anterolisthesis is seen at L5-S1. No pars defects. Mild levoconvex scoliotic curvature is noted. T12-L1: Unremarkable. L1-L2: The disc height is well-preserved. Mild bridging anterior osteophytes are seen on the left. No significant neural foraminal or central canal narrowing can be seen. L2-L3: Interval postoperative changes are seen, with bilateral pedicle screws and vertical fixation rods. The screws appear well placed. There is a disc spacer seen. No findings of hardware failure or hardware loosening are seen. There is associated streak artifact. Minimal loss of disc height is seen. Moderate disc bulge is seen, which is eccentric to the left. There is mild to moderate left-sided and no significant right-sided neural foraminal narrowing seen. No central canal narrowing is seen. This level is improved compared to the preoperative MRI. L3-L4: Moderate loss of disc height is seen. Vacuum disc phenomenon is seen at this level. Moderate generalized disc bulge is seen. Mild facet joint hypertrophy is seen. There is moderate right-sided and mild left-sided neural foraminal narrowing seen. Moderate central canal narrowing is seen, as on series 3 image 52. The degree of central canal narrowing has progressed compared to the prior. L4-L5: The disc height is well-preserved. Moderate disc bulge is seen, with a mild central disc protrusion. Etah-sv-zzuateal bilateral neural foraminal narrowing is seen. Moderate central canal narrowing is seen. The degree of central canal narrowing appears progressed compared to the prior MRI. L5-S1: Mild loss of disc height is seen posteriorly. Moderate facet joint hypertrophy is seen. Mild to moderate disc bulge is seen. Minimal to mild bilateral neural foraminal narrowing is seen. No central canal narrowing is seen. When comparison is made with the prior examination, these findings are similar. Soft tissues: No retroperitoneal masses or hematomas. Visualized aorta is normal in caliber. Atherosclerotic calcification is noted. Nonobstructing left-sided kidney stones are seen, with the largest measuring 4 mm. There is also a nonobstructing right-sided kidney stone measuring 4-5 mm. IMPRESSION: Postoperative change L2-L3, without complication observed. Multiple levels of degenerative change are seen, with an increase in the degree of central canal narrowing at L3-L4 and L4-L5 compared to the prior MRI dated 09/30/17. Incidental note is made of: Nonobstructing bilateral renal stones Dictated by: Mino Cerda M.D. on 06/13/2018 at 11:46 Approved by: Mino Cerda M.D. on 06/13/2018 at 11:58
== END ==
PROVIDERS: PCP Internal Medicine Interventional Cardiology; Visit Provider Orthopaedic Surgery Orthopaedic Surgery of the Spine
DX: M54.5 Low back pain (principal); M47.26 Other spondylosis with radiculopathy, lumbar region; M48.061 Spinal stenosis, lumbar region without neurogenic claudication; N20.0 Calculus of kidney
CPT/HCPCS: 72131

== ENCOUNTER → 2018-11-06 06:14 | Outpatient (CLI) | payer MEDICARE, SELFPAY ==
[2017-12-02 16:28] VITALS: BMI 25.6
--- NOTE | 2018-11-06 | DI.MRI.S_ITS ---
PROCEDURE: MR HIP LT WO CON INDICATIONS: LEFT HIP PAIN TECHNIQUE: Noncontrast coronal T1 spin echo and STIR through the bony pelvis. Coronal and axial T2 fast spin echo with fat saturation, sagittal T1 spin echo, and oblique axial T2 fast spin echo with fat saturation through the hip. COMPARISON: [facility], CR, XR PELVIS WITH LATERAL HIP LEFT, 11/01/2018, 8:33. [facility], CR, XR LUMBAR SPINE 2 OR 3 VIEWS, 10/25/2018, 15:34. FINDINGS: Image quality: Excellent. Bones and joints: Bone marrow of the pelvic ring and proximal femurs show near normal signal throughout except that the hip joints, with bilateral degenerative hip joint osteoarthritis present and with reactive marrow edema seen greater on the left than the right. Early subchondral cyst formation appears present on the left,. No intraosseous lesions or fractures. No avascular necrosis of the femoral heads. The visualized lower lumbar spine appears normally aligned. Tendons and ligaments: The gluteus medius and minimus tendons appear intact, without associated muscle atrophy. The nearby proximal iliotibial band also appears intact. The iliopsoas tendon appears intact, without adjacent bursal fluid collections or evidence for impingement syndrome. The origin of the hamstring tendon is intact at the ischial tuberosity, as well as the associated sacrotuberous ligament. The straight and reflected heads of the rectus femoris muscle origin appear intact, as well as the conjoint tendon. The ligamentum teres appears intact where visualized. Labrum and cartilage: The acetabular labrum appears intact in the absence of intra-articular contrast. Cartilage surface of the femoral head appears of normal thickness. The alpha angle of the femur is within normal limits at less than 55 degrees. Soft tissues: Visualized muscles demonstrate normal bulk and internal signal. Quadratus femoris muscle demonstrates no internal edema to suggest ischiofemoral impingement. The proximal sciatic neurovascular bundle appears normal adjacent to the hamstring tendons. No free pelvic fluid. Bladder wall thickness is normal. Genitourinary structures and bowel loops appear normal where visualized. IMPRESSION: Asymmetric hip joint osteoarthritis, near severe on the left and moderately severe on the right. Reactive marrow edema is relatively prominent at the acetabular roof, and the subchondral marrow space of the femoral head. No trauma, either acute or long-standing, is identified. Dictated by: Casey Israel M.D. on 11/06/2018 at 8:42 Approved by: Casey Israel M.D. on 11/06/2018 at 9:10
== END ==
PROVIDERS: PCP Internal Medicine Interventional Cardiology; Visit Provider Orthopaedic Surgery
DX: M16.9 Osteoarthritis of hip, unspecified (principal)
CPT/HCPCS: 73721

== ENCOUNTER → 2018-12-22 09:37 | Outpatient (CLI) | payer MEDICARE, SELFPAY ==
[2017-12-02 16:28] VITALS: BMI 25.6
--- NOTE | 2018-12-22 | DI.CT.S_ITS ---
PROCEDURE: CT LUMBAR SPINE WO CON INDICATIONS: Radiculopathy, lumbar region TECHNIQUE: Noncontrast 3 mm thick sections acquired from the T12 level to the sacrum. Sagittal and coronal reformats were constructed. For radiation dose reduction, the following was used: automated exposure control. COMPARISON: [facility], CT, KIDNEY/ URETER/BLADDER, 03/07/2009, 9:31. [facility], CT, KIDNEY/ URETER/BLADDER, 12/27/2011, 21:58. [facility], CR, XR LUMBAR SPINE 2 OR 3 VIEWS, 12/22/2018, 8:40. [facility], CT, CT LUMBAR SPINE WO CON, 06/13/2018, 11:12. FINDINGS: Image quality: Excellent. Posterior fusion is present at L2-3 with intervertebral spacer. Hardware is intact without visualized periprosthetic loosening. There are no visualized osseous fractures or dislocations. There is trace anterolisthesis of L5 on S1, unchanged. Mild disc bulges are present at L1-L2,, suspected poorly visualized disc bulge at L2-3 secondary to postoperative change, L3-4, L4-5 including a posterior central protrusion and L5-S1. Moderate spinal stenosis is present at L3-4, L4-5, unchanged. There is mild to moderate left foraminal narrowing at L2-3, moderate right, mild left L3-4, mild/moderate bilateral L4-5, minimal to mild bilateral L5-S1. Overall appearance is stable. Facet hypertrophy is present at multiple levels. No retroperitoneal masses or hematomas. Bilateral renal cysts are present. There is an unchanged 12 mm low attenuation focus, Hounsfield units -4 at the level of L2, compared to prior exam. However, there has been mild interval increase since 2011 which time it measured 10 mm and since 2008 at which time it measured 5 mm. Bilateral nonobstructing renal calculi are present. Visualized aorta is normal in caliber. IMPRESSION: 1. L2-3 posterior fusion as above. 2. Multilevel degenerative changes stable compared to prior exam. 3. Cystic like structure posterior to the aorta demonstrating small interval growth since 2008. This is suspected to represent a cyst of uncertain origin. Dictated by: Emily Keating M.D. on 12/22/2018 at 15:15 Approved by: Emily Keating M.D. on 12/22/2018 at 15:32
== END ==
PROVIDERS: PCP Nurse Practitioner Family; Visit Provider Orthopaedic Surgery Orthopaedic Surgery of the Spine
DX: M47.26 Other spondylosis with radiculopathy, lumbar region (principal); Z98.1 Arthrodesis status
CPT/HCPCS: 72131

== ENCOUNTER 2019-02-16 06:24 | Inpatient (IN) | payer MEDICARE, SELFPAY ==
[2017-12-02 16:28] VITALS: BMI 25.6
[2019-02-05 09:57] VITALS: BMI 27.5
[2019-02-16] VITALS (29 sets, daily range): BP systolic 91–136; BP diastolic 51–86; PULSE 67–94; RESP 7–19; TEMP 36.4–37.3; O2SAT 88–98; BMI 27.5
--- NOTE | 2019-02-16 | DI.RAD.S_ITS ---
PROCEDURE: XR LUMBAR SPINE 2-3V INDICATIONS: L3-4, L4-5 TLIF L2-3 HWR TECHNIQUE: 3 views of the lumbar spine were acquired. COMPARISON: [facility], [place], XR LUMBAR SPINE 2-3V, 12/02/2017, 8:36. [facility], [place], L-SPINE 2-3 VIEWS, 08/07/2013, 12:58. FINDINGS: Bones: 5 eql-eht-ecpqvlr vertebrae are present. There is normal bony alignment established by bilateral transverse pedicle screws and vertical fixation rods with intervening intervertebral cage disc prosthesis devices at L2-3, L3-4, and L4-5. No vertebral body compression fractures. No suspicious bony lesions. Soft tissues: Overlying bowel gas pattern is normal. No suspicious soft tissue calcifications. IMPRESSION: Postoperative alignment after L2-S1 posterior fusion device placement with interbody disc cage prosthesis devices placed at 3 intervening levels as noted. Dictated by: Casey Israel M.D. on 02/16/2019 at 14:27 Approved by: Casey Israel M.D. on 02/16/2019 at 14:30
[2019-02-16] MEDS: LACTATED RINGERS 1,000 ML 42 ML IV ×3 (07:17→12:45)
--- NOTE | 2019-02-16 07:50 | PM.PREOP ---
Pre-operative Note Interval Note History & Physical reviewed/Exam performed by Physician: Yes Changes to H&P: No
[2019-02-16] MEDS: CEFAZOLIN 2 GM/100 ML FROZ.PIGGY IV ×3 (07:53→20:18)
[2019-02-16] MEDS: ACETAMINOPHEN IV 1,000 MG/100 ML VIAL 400 MG IV (08:42)
[2019-02-16] MEDS: BUPIVACAINE LIPOSOME 266 MG/20 ML VIAL INJ (12:10)
[2019-02-16] MEDS: BUPIVACAINE 0.25% W/ EPI (PF) 10 ML VIAL 30 ML INJ (12:11)
--- NOTE | 2019-02-16 12:27 | P.OP_ITS ---
Operative Date/Time/Diagnoses Date of procedure: 02/16/19 Time of procedure: 08:05 Pre-op diagnosis: 1. Spinal stenosis L3-4, L4-5, L5-S1 2. Hx of L2-3 fusion 3. L3-4, L4-5, L5-S1 spondylosis with radiculopathy 4. Lumbar scoliosis Post-op diagnosis: same Procedure & Clinicians Procedure: 1. L3-4, L4-5 posterolateral and posterior interbody fusion 2. L3-4, L4-5 posterior interbody cage placement 3. L2-3 posterior non-segmental instrumentation removal 4. L2-3 revision laminectomy with exploration of fusion 5. L2-3, L3-4, L4-5, L5-S1 posterior segmental instrumentation with pedicle screw placement 6. L5-S1 posterolateral fusion 7. [place] of bone marrow from iliac crest through a separate incision 8. Utilization of microsurgical technique and operating microscope Same procedure as scheduled: Yes Indications: Patient has been having chronic back pain and worsening lumbar radiculopathy. Patient failed multiple conservative management with worsening pain weakness and numbness in her lower extremity. Patient has been having difficulty performing activity of daily living. After discussing risks benefits of treatment options, patient elected proceed with surgery. Surgeon: Alvin Oscar Soft Work Cigar Machine Operator: Glo Ness Click Yes if Unassisted: No Anesthesia Type: General Operative Notes Closure Type: primary Specimen(s): none sent Prosthetic devices, grafts, tissues, transplants, or devices: Globus revolve screws, Rise cages Estimated Blood Loss (mL): 250 Blood products transfused: none Procedure in detail: Patient was seen in the preoperative area. Risks and benefits of the surgery was discussed with the patient. Informed consent was obtained from the patient and placed in the chart. Surgical site was marked. Patient was taken to the operative room. General anesthesia was administered. Prophylactic antibiotic was given to the patient less than 30 min before the incision was made. Patient was placed into a prone position on the Feng table. Patient's back was then prepped and draped in the sterile fashion. Time- out was performed at this time. Using patient's previous scar incision was made over the L2-S1 interval on the left side. Fascia was incised in line with skin incision. Patient's previously placed hardware over the L2-3 level was identified by dissecting down to the level the hardware using a Bovie and a Apple. The locking caps which was removed using globus screwdriver. The locking jennifer was then removed from the tulips of the pedicle screws using a Blanche. The pedicle screws were then removed using the screwdriver. The screws were found to have good purchase. The Globus and MARS retractors was then placed into the wound and docked onto the L3, L4 lamina using C-arm guidance. Using microsurgical technique and operating microscope a laminectomy facetectomy was performed by removing the L3, L4 lamina and the L3-4, L4-5 facet. The disc space at L3-4 L4-5 level was identified next. And a total diskectomy was performed at L3-4 L4-5 level. The endplates were decorticated using a rasp and shaver. The total diskectomy and decortication was performed at L3-4 L4-5 level in order to to accomplish a L3-4 L4-5 fusion. The local bone from the laminectomy and facetectomy was saved for local bone grafting. After the total diskectomy and decortication was completed, Bio4 bone graft material was combined with local bone that was harvested earlier. At this time, a separate skin is incision was made over the iliac crest. A Jamshidi needle was inserted into the iliac crest through a separate skin incision. 5 cc of bone marrow aspiration was obtained through the separate skin incision using a Jamshidi needle from the iliac crest. The bone marrow aspiration was combined with local bone and the Bio4l bone grafting material. The bone grafting material was placed into the L3-4 L4-5 interbody space along with expandable cages. The cages was expanded to its maximum height using the torque limiting screwdriver. At this time a mirror image incision was made on the right side. The fascia was incised in line with the skin incision. Patient's previously placed hardware on the right side was then removed in the same fashion as it was on the right side. The hardware was also found to have good purchase. The fusion mass on the left side was exposed by performing a right-sided hemilaminectomy at L2-3 level. The hemilaminectomy was performed using the Kerrison rongeur to undercut the lamina as well removing additional epidural scar tissue for purpose of decompressing the epidural space. The fusion mass was explored and was found to be solid. Globus MARS retractor was inserted and docked onto the L3-4 L4-5 L5-S1 posterolateral gutter. Using the power drill, posterior-lateral decortication was performed at L3-4 L4-5 L5-S1 level until bleeding cortical bone was identified. The remaining bone grafting material was placed into the L3-4 L4-5 L5-S1 posterior lateral gutter he order to accomplish posterolateral fusion at the L3-4 L4-5 L5-S1 level. Using the double C-arm technique, pedicle screws were placed into the L2, L3, L4, L5, S1 pedicles bilaterally. This was done by placing the Jamshidi needle into the pedicles, then placing the guidewires over the Jamshidi needle, and finally placing the cannulated screws over the guidewires bilaterally. After the pedicle screws were placed, 2 titanium rods was locked into the heads of the pedicle screws using locking caps and torque limiting screwdriver. After all the hardware was placed, and confirmed with AP and lateral C-arm imaging, the wound was then irrigated with sterile normal saline and packed with Ray-Heriberto gauze for 3 min to accomplish hemostasis. After the gauze was removed the deep fascia was closed with #1 Vicryl suture. The subcutaneous layer was closed with 2-0 Vicryl. The skin was closed with skin david. Patient tolerated the procedure well. There were no complications. Complications: none Post-operative Condition: stable Disposition: PACU Plan for aftercare: Admit to inpatient hospital
--- NOTE | 2019-02-16 12:47 | SUR.PHASEI ---
Pt arrived with oral airway, chin lift needed to maintain airway. BP low, being treated with fluids.
--- NOTE | 2019-02-16 13:37 | SUR.PHASEI ---
Airway out. BP improved, IV rate slowed.
[2019-02-16] MEDS: HYDROMORPHONE 2 MG INJ IV ×4 (13:46→14:02)
--- NOTE | 2019-02-16 14:49 | SUR.PHASEI ---
Pt still c/o of 6-8/10 pain, pt very restful, relaxed facial expression. Pt transported up to room 223 on 02 at 3/l nasal cannula. Pt left in stable condition with SABA Bone
[2019-02-16] MEDS: SODIUM CHLORIDE 0.9% 1,000 ML 100 ML IV (15:37)
[2019-02-16] MEDS: ISOSORBIDE MONONITRATE ER 30 MG TABLET PO (16:47)
--- NOTE | 2019-02-16 17:53 | PT-IP ANOTE ---
Attempted to see Pt but pt stated he has 8/10 pain and would like to rest at this point. Reattempt PT eval tomorrow morning.
[2019-02-16] MEDS: HYDROCODONE/ACET 5/325 TABLET 2 TAB PO ×2 (18:11→22:08)
[2019-02-16] MEDS: carvediloL 3.125 MG TABLET 1.56 MG PO (21:09)
[2019-02-16] MEDS: SENNOSIDES 8.6 MG TABLET 17.2 MG PO (21:10)
[2019-02-16] MEDS: DOCUSATE 100 MG CAPSULE PO (21:10)
[2019-02-17] VITALS (9 sets, daily range): BP systolic 103–138; BP diastolic 53–73; PULSE 70–83; RESP 16–18; TEMP 36.6–37.6; O2SAT 93–97
[2019-02-17] MEDS: HYDROMORPHONE 1 MG INJ 0.5 MG IV (01:21)
[2019-02-17] MEDS: SODIUM CHLORIDE 0.9% 1,000 ML 100 ML IV (01:25)
[2019-02-17] MEDS: CEFAZOLIN 2 GM/100 ML FROZ.PIGGY IV (04:00)
[2019-02-17] MEDS: HYDROCODONE/ACET 5/325 TABLET 2 TAB PO ×2 (05:12→08:58)
[2019-02-17 05:15] LABS: Hematocrit 34.7 % (41-53); Hemoglobin 11.9 g/dL (13.5-17.5)
[2019-02-17] MEDS: LISINOPRIL 5 MG TABLET 10 MG PO (08:52)
[2019-02-17] MEDS: ROSUVASTATIN 10 MG TABLET 20 MG PO (08:53)
[2019-02-17] MEDS: DOCUSATE 100 MG CAPSULE PO ×2 (08:53→21:14)
[2019-02-17] MEDS: CHOLECALCIFEROL (VITAMIN D3) 1,000 UNIT TABLET 1000 UNIT PO (08:53)
[2019-02-17] MEDS: carvediloL 3.125 MG TABLET 1.56 MG PO (08:59)
--- NOTE | 2019-02-17 09:24 | DIET.PN ---
Dietary Progress Note Assessment: Mr. Winter is a 74y M who was referred to nutrition r/t kidney issues and avoidance of berries, nuts, seeds, and chocolate. Pt has sig hx of kidney stones, had 7 surgeries to remove. Started avoiding above mentioned foods 5y ago and has not had kidney stones since. Pt had no further questions and was happy with food here at , feels there is plenty to eat within his restrictions. No other kidney issues. Nutrition Diagnosis: none. Diet Order: General Monitoring/Evaluations: as requested
--- NOTE | 2019-02-17 10:11 | CM.DANOTE ---
Addendum entered by Leida Huddleston R.N. 02/17/19 10:21: Alejandro called back from [facility] and stated that they do have bed availabilities for Tuesday. Original Note: DCP: Case received, EMR reviewed and met with patient. Introduced self and role. Was able to meet with patient in his room in order to retrieve baseline history and living situation. DCP assessment completed with information currently available. Patient is a 74 year old male who admitted yesterday morning to the care of the orthopedic team. PCP: Dr. See. Payer: confirmed: Medicare/[employer]. Patient came to the hospital for a surgical procedure. He had an L3-4, L4-5 posterior interbody fusion/laminotomy. Patient has history of scoliosis, and chronic back pain. Met with patient in his room. He was sitting up in bed. He resides alone here in [place]. He is a , his approximately 1 year ago. 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 Patient has children in the [facility], and a son in [place]. He is in agreement that he may need some correction rehab. Currently, his children will come over and assist him, prior to his having surgery. He stated, sometimes its hard to get around, due to my back pain. Brought patient a Medicare Choice List. He mentioned, his son wanted him to go to rehab at [place], but it's far from here, and concerned about transportation. He is requesting to go to [facility], because it's here in town. Encouraged him to make a second choice of facilities in case they are full. Stated, he would review the list. Called [facility] and spoke to Alejandro in admissions. Let him know that patient was inpatient as of 02/16, and would be eligible by Medicare coverage by Tuesday, 02/19. He will review, faxed over face sheet, and will get back to this case assembler regarding bed availabilities. P: DCP to follow closely, and collaborate with P.T. as well. Patient is hoping for [facility], will follow up with them as well. Leida Huddleston RN/Science Instructor
--- NOTE | 2019-02-17 10:15 | P.PN_ITS ---
Subjective Subjective Date Patient Seen: 02/17/19 Time Patient Seen: 10:16 Interval history: Postop day 1 status post L2 through S1 posterior fusion with Dr. Oscar. Patient's dressing had to be reinforced last night. He is having significant pain control issues. He also notes significant hip pain and plans on having a total hip arthroplasty in the near future. He has a baseline essential tremor. He has not been up with physical therapy. Denies fevers or chills. Exam Vital Signs (past 8 hours): - 02/17/19 06:00 02/17/19 07:40 02/17/19 08:52 Temperature 98.3 F 97.8 F Pulse Rate 81 70 Respiratory Rate 16 16 Blood Pressure 138/67 113/59 L 113/59 L Pulse Oximetry 96 95 02/17/19 08:59 Temperature Pulse Rate Respiratory Rate Blood Pressure 113/59 L Pulse Oximetry Oxygen Delivery Method Nasal Cannula Oxygen Flow Rate 0 Narrative Exam Narrative: Patient lying in bed in no acute distress. He is alert orient x3. Calves are soft, compressible and nontender bilaterally. He is able to actively dorsiflex and plantar flex. Dressing on back removed no active drainage coming from wound. Clean dressing applied. Objective Labs Result Diagrams: 02/17/19 04:45 Labs: Laboratory Results - last 24 hr 02/17/19 04:45 Hgb 11.9 L Hct 34.7 L Assessment & Plan Post-op Postoperative Procedures: Procedures Operation Date: 02/16/19 07:45 Actual Procedures Side Surgeon p L3-4,L4-5 TLIF, L2-3 HWR,L2-S1 PSF w/instrumentation Alvin Oscar MD patient will mobilize with physical therapy today. No excessive bending, lift ing, or twisting. Will DC catheter once mobilizing. Oral Dilaudid added for pain control. Patient lives alone and will likely need residential facility for continued care after surgery. He has been slow to mobilize. Quality VTE Deep Vein Thrombosis/Pulmonary Embolism Present on Admission: No
--- NOTE | 2019-02-17 11:31 | PT.IIE ---
Current Diagnoses Other spondylosis with radiculopathy, lumbosacral region (02/16/19) Spinal stenosis, lumbar region without neurogenic claudication (02/16/19) Arthrodesis status (02/16/19) Surgery Performed Operation Date: 02/16/19 07:45 Actual Procedures p L3-4,L4-5 TLIF, L2-3 HWR,L2-S1 PSF w/instrumentation - Alvin Oscar MD Surgical History (Last Updated 02/05/19 @ 11:41 by Lorna No RN) History of arthroscopy of right shoulder (Acute) Hx of cardiac catheterization (Acute) Hx of heart artery stent (Acute) Hx of laminectomy (Acute 12/02/17) Hx of lithotripsy (Acute) Medical History (Last Updated 11/24/17 @ 10:36 by Lorna No RN) Arthritis (Acute) Benign essential tremor (Acute) CAD (coronary artery disease) (Acute) Carotid artery stenosis (Acute) DVT (deep venous thrombosis) (Acute) HTN (hypertension) (Acute) Hyperlipidemia (Acute) Kidney stones (Acute) PAD (peripheral artery disease) (Acute) Sciatica (Acute) Sinus bradycardia (Acute) Skin cancer (Acute) Trigger thumb, left thumb (Acute) Walking pneumonia (Acute) Physical Therapy Inpatient Evaluation/Re-Eval M1 PT/OT-IP Prior Functional Status Start: 02/16/19 16:50 Freq: NEEDED Status: Active Protocol: Document 02/17/19 11:31 AB (Rec: 02/17/19 13:16 AB [id number]) Medical Review Prior Functional Status Medical History Reviewed Yes Communication able to make needs known Mobility and Gait pt stated that he is independent with all mobilities and ambulation without AD but had used a SPC for the last 2 weeks due to pain. stated that his L hip is also bone on bone. Social History Household Members none Living Arrangements House Number of Floors (Floors) One Floor Number of Stairs To Enter/Railing? no steps to enter Home Environment High Toilet,Walk in Shower, Built-In Shower Seat Home Equipment Front Wheel Walker,Straight Cane,Crutches,Hand Held Shower ,Grab Bars In Shower Additional Social History Comment stated that his daughter in law will stay with him to assist him as needed M2 PT-IP Current Condition Start: 02/16/19 16:50 Freq: NEEDED Status: Active Protocol: Document 02/17/19 11:31 AB (Rec: 02/17/19 13:16 AB [id number]) Physical Therapy Current Condition Current Condition Evaluation Date 02/17/19 Treatment Diagnosis s/p L3-5 post. fusion; L2-S1 instrumentation; difficulty in walking Onset Date 02/16/19 Precautions Lumbar Precautions Log Roll,No Twisting,Limit Bending,Lifting Restriction of 10 lbs,Gait Belt above Incisional Area M3 PT-IP Subjective Start: 02/16/19 16:50 Freq: NEEDED Status: Active Protocol: Document 02/17/19 11:31 AB (Rec: 02/17/19 13:16 AB [id number]) Subjective Physical Therapy Visit Type Type Initial Evaluation Visit Start Time 11:31 Visit Stop Time 11:57 Total Visit Minutes 26 Number of SR. SOCIAL MEDIA & MOBILE MANAGER Visits 0 Physical Therapy Visit Comments Patient Comments pt agreeable to do PT Therapy Pain Assessment Pain When Pain Assessed At Rest Pain Present Pain Present Pain Reported Location Lower Back Intensity 9 Scale Used Numeric (1 - 10) Pain Management Techniques Re-positioning,Timing of Activity with Medications M4 PT-IP Mobility and Gait Start: 02/16/19 16:50 Freq: NEEDED Status: Active Protocol: Document 02/17/19 11:31 AB (Rec: 02/17/19 13:16 AB [id number]) PT-Bed Mobility Assessment Rolling Type of Rolling Log Rolling Level of Assist Standby Assistance Supine to Sit Supine to Sit Standby Assistance Scooting Scooting to Edge of Bed Standby Assistance PT-Transfer Assessment Sit to and From Stand Sit to and from Stand Contact Guard Assistance,1 Person Assistance,Use of Upper Extremities Equipment Transfer Assistive Device Gait Belt,Front Wheeled Walker Orthotic/Prosthetic Devices or Brace: No Transfers Transfer Destination Chair Transfer Technique ambulated using FWW Transfer Ability Level of Assist Contact Guard Assistance Gait Assessment Gait Gait Assistance Required: Contact Guard Assist Distance (Feet) 75 Able to Maintain Weight Bearing Status Yes During Gait Assistive Devices Assistive Device Gait Belt,Front Wheeled Walker Orthotic/Prosthetic Devices or Brace: No Gait Deviations General Gait Pattern Decreased Stride Length, Decreased Feet Clearance Factors Limiting Gait Function Factors Limiting Gait Function Decreased Activity Tolerance, Limited Range of Motion,Pain, Poor Balance PT-Balance Assessment Sitting Balance and Reactions Static Sitting Balance Ability Good Dynamic Sitting Balance Ability Good Standing Balance and Reactions Static Standing Balance Ability Fair Dynamic Standing Balance Ability Fair Device Used FWW M5 PT-IP Objective Assessments Start: 02/16/19 16:50 Freq: NEEDED Status: Active Protocol: Document 02/17/19 11:31 AB (Rec: 02/17/19 13:16 AB [id number]) Orientation Orientation/Cognition Level of Alertness Alert Orientation Name,Age,Birthday,Month,Date, Year,Day of Week,Place, Situation Language Function Ability No Deficits Noted Safety Awareness Understands Safety Issues Memory Description No Deficits Noted Gross Range of Motion Lower Extremity ROM Assessment Within Functional Limits Strength Lower Extremity Strength Assessment Within Functional Limits Coordination Assessment Gross Coordination Gross Coordination WNL Sensation Assessment Sensation Gross Sensation WNL Other Assessments Other Other Assessments (+) UE tremors M6 PT-IP Treatment Start: 02/16/19 16:50 Freq: NEEDED Status: Active Protocol: Document 02/17/19 11:31 AB (Rec: 02/17/19 13:16 AB [id number]) Physical Therapy Treatment Education Education Provided Precautions,Weight Bearing Status,Post-Op Packet,Safety M7 PT-IP Assessment and Plan Start: 02/16/19 16:50 Freq: NEEDED Status: Active Protocol: Document 02/17/19 11:31 AB (Rec: 02/17/19 13:16 AB [id number]) PT Summary Assessment and Plan Potential Rehabilitation Potential Good Status of Condition at Evaluation Stable Summary Impairments Pain,ROM,Strength,Balance,Tone ,Bed Mobility,Transfers,Gait, Activity Tolerance Assessment Summary pt requiring CGA with mobility and plans to go home with family to assist him. per pt, he had previous back surgery ~ 14 months ago and stated that he knows what to do. pt may go home when medically stable. Goals Bed Mobility Goal Independent Transfer Goal Independent,Front Wheeled Walker Gait Goal Independent,Front Wheel Walker Gait Distance 250 Days to Meet Goals 5 Frequency of Treatment Frequency Of Treatment Twice a Day Treatment Plan Physical Therapy Treatment Plan Bed Mobility Training,Transfer Training,Gait Training, Therapeutic Exercise,Balance Retraining,Post Op Education, Discharge Planning,Hot or Cold Pack,Neuromuscular Re-ed, Coordination Retraining,Manual Therapy Recommendations To Nursing Amount of Assist Needed 1 Person Assist Discharge Recommendations PT Discharge Recommendations Home with Assistance
[2019-02-17] MEDS: HYDROMORPHONE 2 MG TABLET PO (13:16)
--- NOTE | 2019-02-17 13:17 | OT.IP.EVAL ---
Current Diagnoses Other spondylosis with radiculopathy, lumbosacral region (02/16/19) Spinal stenosis, lumbar region without neurogenic claudication (02/16/19) Arthrodesis status (02/16/19) Surgery Performed Operation Date: 02/16/19 07:45 Actual Procedures p L3-4,L4-5 TLIF, L2-3 HWR,L2-S1 PSF w/instrumentation - Alvin Oscar MD Past Medical History (Last Updated 11/24/17 @ 10:36 by Lorna No RN) Arthritis (Acute) Benign essential tremor (Acute) CAD (coronary artery disease) (Acute) Carotid artery stenosis (Acute) DVT (deep venous thrombosis) (Acute) HTN (hypertension) (Acute) Hyperlipidemia (Acute) Kidney stones (Acute) PAD (peripheral artery disease) (Acute) Sciatica (Acute) Sinus bradycardia (Acute) Skin cancer (Acute) Trigger thumb, left thumb (Acute) Walking pneumonia (Acute) Surgical History (Last Updated 02/05/19 @ 11:41 by Lorna No RN) History of arthroscopy of right shoulder (Acute) Hx of cardiac catheterization (Acute) Hx of heart artery stent (Acute) Hx of laminectomy (Acute 12/02/17) Hx of lithotripsy (Acute) Occupational Therapy Inpatient Evaluation/Re-Eval M1 PT/OT-IP Prior Functional Status Start: 02/16/19 16:50 Freq: NEEDED Status: Active Protocol: Document 02/17/19 13:45 CGR (Rec: 02/17/19 14:00 CGR [id number]) Medical Review Prior Functional Status Medical History Reviewed Yes Communication able to make needs known Mobility and Gait pt stated that he is independent with all mobilities and ambulation without AD but had used a SPC for the last 2 weeks due to pain. stated that his L hip is also bone on bone. Activities of Daily Living and IADL's Pt was IND in all ADLs. Prior Functional Level (Other details) Pt states he is very active and likes to julia [employer] . Social History Household Members none Living Arrangements House Number of Floors (Floors) One Floor Number of Stairs To Enter/Railing? no steps to enter Home Environment High Toilet,Walk in Shower, Built-In Shower Seat Home Equipment Front Wheel Walker,Straight Cane,Crutches,Raised Toilet Seat w/Armrests,Hand Held Shower,Core Microarchitect,Sock Aid,Grab Bars In Shower Employment Status Retired Additional Social History Comment stated that his daughter in law will stay with him to assist him as needed, per nurse the daughter in law would check in on him but not stay with him. M2 OT-IP Current Condition Start: 02/17/19 13:44 Freq: Status: Active Protocol: Document 02/17/19 13:45 CGR (Rec: 02/17/19 14:00 CGR [id number]) Occupational Therapy Current Condition Current Condition Evaluation Date 02/17/19 Treatment Diagnosis L2-S1 lami, hardware placement , bone graft and revision of old sx. Diagnosis Onset Date 02/16/19 Post Operative Precautions Lumbar Precautions Log Roll,No Twisting,Limit Bending,Lifting Restriction of 10 lbs,Gait Belt above Incisional Area M3 OT- IP Subjective and Pain Start: 02/17/19 13:44 Freq: Status: Active Protocol: Document 02/17/19 13:45 CGR (Rec: 02/17/19 14:00 CGR [id number]) OT- Subjective Occupational Therapy Visit Type Type Initial Evaluation Visit Start Time 12:30 Visit Stop Time 13:13 Total Visit Minutes 43 Occupational Therapy Visit Comments Patient Comments I am suppose to go home on Tuesday. OT Pain Assessment Pain When Pain Assessed At Rest Pain Present Pain Present Pain Reported Location Lower Back Intensity 8 Scale Used Numeric (1 - 10) Management Techniques Modification of Treatment,Re- positioning M4 OT- IP ADL's Start: 02/17/19 13:44 Freq: Status: Active Protocol: Document 02/17/19 13:45 CGR (Rec: 02/17/19 14:00 CGR [id number]) OT [id number] Comments OT Self-Feeding Comments Not meal time OT ADL-Grooming General Evaluation Grooming Ability Standby Assistance Areas Needing Assistance Retrieving/Set-up of Grooming Items,Combing/Brushing Hair, Face Washing Comments OT Grooming Comments Standing at sink OT ADL-Oral Care General Eval Oral Care Ability Standby Assistance Areas of Assistance Brushing Teeth,Retrieving/Set- Up of Items Comments Oral Care Comments Standing at sink OT ADL-Dressing General Eval Upper Body Dressing Ability Independent Lower Body Dressing Ability Maximum Assistance Areas Needing Assistance Retrieving/Set-up of Clothing, Socks Assistive Devices Dressing Assistive Devices Core Microarchitect,Sock Aid Comments OT Dressing Comments Demonstrated use of sock aid and theatrical dresser for LB dressing. Pt needed max VC for using equipment after demonstration. Pt will benefit from review of sock aid. OT ADL-Toileting General Evaluation Toileting Ability Contact Guard Assistance Devices Toileting Assistive Devices Grab Bars Comments OT Toileting Comments seated on toilet OT ADL-Bathing Comments OT Bathing Comments Not performed in this session. M5 OT- IP IADL's Start: 02/17/19 13:44 Freq: Status: Active Protocol: Document 02/17/19 13:45 CGR (Rec: 02/17/19 14:00 CGR [id number]) OT-Instrumental Activities of Daily Living Deficits IADL Deficits Identified Deficits Home Safety Awareness Awareness of Need for Assistance at Home Decreased Awareness Ability to Problem Solve Emergency Able to Problem Solve Situations Home Safety Comments Concerns at this time for ability to follow back precautions with ADLs and home safety. M6 OT- IP Functional Cognition Start: 02/17/19 13:44 Freq: Status: Active Protocol: Document 02/17/19 13:45 CGR (Rec: 02/17/19 14:00 CGR [id number]) Cognitive Factors Limiting Selfcare Function Cognitive Ability Level of Alertness Alert Patient Orientation Name,Age,Birthday,Month,Date, Year,Day of Week,Place, Situation Attention Span Ability Capable of Focused Attention Ability to Follow Commands Able to Follow One Step Commands with Increased Time, Able to Follow One Step Commands with Repetition Memory Description No Deficits Noted Safety Awareness Decreased Recall of Precautions,Decreased Ability to Apply Precautions, Underestimates Need for Assistance Problem Solving Ability Unable to Identify Errors, Needs Assist to Identify Solutions Cognitive Comments Cognitive Assessment Comments Pt may benefit from cog assessment if displaying cog defficits at next session. OT- Vision and Hearing OT- Hearing Assessment OT- Hearing Assessment WFL OT- Vision Assessment Visual Acuity Glasses All The Time Visual Attentiveness WFL Occular Pursuits WFL Visual Convergence WFL Visual Power WFL M7 OT- IP Mobility and Balance Start: 02/17/19 13:44 Freq: Status: Active Protocol: Document 02/17/19 13:45 CGR (Rec: 02/17/19 14:00 CGR [id number]) OT- Bed Mobility Assessment Rolling Type of Rolling Log Rolling Level of Assistance Minimal Assistance Sit to Supine Sit to Supine Assist Minimal Assistance Scooting Scooting to Edge of Bed Contact Guard Assistance Scooting Up and Down in Bed Contact Guard Assistance OT-Transfer Assessment Sit to and From Stand Sit to and from Stand Contact Guard Assistance Transfers Transfer Ability Minimal Assistance Technique Transfer Destination Bed,Chair,Toilet Transfer Technique Stand Step Pivot Devices Transfer Assistive Devices Gait Belt,Front Wheeled Walker Comments Mobility Comments Pt performs well with transfer but needs reminders on hand placement and where to position walker during activiites. OT- Gait Assessment Gait Gait Assistance Required: Contact Guard Assist Assistive Devices Assistive Device Gait Belt,Front Wheeled Walker Comments Gait Ability Comments mobiity around the room. OT- Balance Assessment Sitting Balance and Reactions Static Sitting Balance Ability Good Dynamic Sitting Balance Ability Fair M8 OT- IP Objective Assessments Start: 02/17/19 13:44 Freq: Status: Active Protocol: Document 02/17/19 13:45 CGR (Rec: 02/17/19 14:00 CGR [id number]) OT Gross Range of Motion Upper Extremity Range of Motion Assessment Within Functional Limits OT Strength Upper Extremity Strength Assessment Within Functional Limits Hand Bicycle Courier Strength Hand Dominance Right OT- Coordination Assessment Upper Extremity Finger to Nose Test Bilateral UE Impaired Finger Tapping Test Bilateral UE Impaired Comments Coordination Comments Pt with essential tremmor that he has had for 10 years. OT-Muscle Tone Assessment Muscle Tone WNL Yes OT Sensation Assessment Edema Edema Absent M9 OT- IP Assessment and Plan Start: 02/17/19 13:44 Freq: Status: Active Protocol: Document 02/17/19 13:45 CGR (Rec: 02/17/19 14:00 CGR [id number]) OT Summary Assessment and Plan Potential Rehabilitation Potential Excellent Analytic Complexity at Evaluation Low Summary OT Impairments Pain,Coordination,Functional Cognition,Functional Mobility, Grooming,Dressing,Toileting, Bathing,Toilet Transfers, Shower Transfers Progress Towards Goals Slow Progress due to Pain Assessment Summary Pt presents at a low complexity evaluation s/p sx. Pt currently is limited by pain and cognition. It is possible that the cog deficits noted were due to medication. Further follow up at next session. Recommendation at this time is for pt to discharge to rehab but possible discharge home if pt improves by next session. Will need to review LB dressing. Goals Grooming Goal Independent Dressing Goal Independent Toileting Goal Independent Bathing Goal Independent Toilet Transfer Goal Independent Shower Transfer Goal Independent Days to Meet Goals 3 Frequency of Treatment Frequency Of Treatment Once a Day Treatment Plan OT Treatment Plan ADL Training,Functional Cognition Training,Functional Mobility,Patient/Family Education,Discharge Planning Other Treatment Recommendations and Next LB dressing training and Treatment Focus shower. Discharge Recommendations OT Discharge Recommendations SNF Rehab Home Equipment Needs TBD
[2019-02-17] MEDS: hydrOXYzine pamoate 25 MG CAPSULE PO ×2 (15:43→22:47)
[2019-02-17] MEDS: ACETAMINOPHEN 325 MG TABLET 650 MG PO ×2 (15:43→22:47)
--- NOTE | 2019-02-17 16:09 | PT.IPTN ---
Current Diagnoses Other spondylosis with radiculopathy, lumbosacral region (02/16/19) Spinal stenosis, lumbar region without neurogenic claudication (02/16/19) Arthrodesis status (02/16/19) Surgery Performed Operation Date: 02/16/19 07:45 Actual Procedures p L3-4,L4-5 TLIF, L2-3 HWR,L2-S1 PSF w/instrumentation - Alvin Oscar MD Physical Therapy Treatment Note M2 PT-IP Current Condition Start: 02/16/19 16:50 Freq: NEEDED Status: Active Protocol: Document 02/17/19 15:59 NFW (Rec: 02/17/19 16:09 NFW [id number]) Physical Therapy Current Condition Precautions Lumbar Precautions Log Roll,No Twisting,Limit Bending,Lifting Restriction of 10 lbs,Gait Belt above Incisional Area Weight Bearing Status Weight Bearing Status Full Weight Bearing M3 PT-IP Subjective Start: 02/16/19 16:50 Freq: NEEDED Status: Active Protocol: Document 02/17/19 15:59 NFW (Rec: 02/17/19 16:09 NFW [id number]) Subjective Physical Therapy Visit Type Type Treatment Note Visit Start Time 15:35 Visit Stop Time 15:59 Total Visit Minutes 24 Number of CHART CALCULATOR Visits 0 Physical Therapy Visit Comments Patient Comments Pt in considerable pain but agreeable to do PT. Pain meds given to pt prior to treatment . Therapy Pain Assessment Pain When Pain Assessed At Rest Pain Present Pain Present Pain Reported Location Lower Back Intensity 9 Scale Used Numeric (1 - 10) Pain Management Techniques Apply Cold,Re-positioning, Timing of Activity with Medications M4 PT-IP Mobility and Gait Start: 02/16/19 16:50 Freq: NEEDED Status: Active Protocol: Document 02/17/19 15:59 NFW (Rec: 02/17/19 16:09 NFW [id number]) PT-Bed Mobility Assessment Rolling Type of Rolling Log Rolling Level of Assist Standby Assistance Supine to Sit Supine to Sit Contact Guard Assistance Sit to Supine Sit to Supine Contact Guard Assistance Scooting Scooting to Edge of Bed Standby Assistance PT-Transfer Assessment Sit to and From Stand Sit to and from Stand Contact Guard Assistance,1 Person Assistance,Use of Upper Extremities Equipment Transfer Assistive Device Gait Belt,Front Wheeled Walker Orthotic/Prosthetic Devices or Brace: No Transfers Transfer Destination Bed Transfer Technique ambulated using FWW Transfer Ability Level of Assist Contact Guard Assistance Gait Assessment Gait Gait Assistance Required: Contact Guard Assist Distance (Feet) 125 Able to Maintain Weight Bearing Status Yes During Gait Assistive Devices Assistive Device Gait Belt,Front Wheeled Walker Orthotic/Prosthetic Devices or Brace: No Gait Deviations General Gait Pattern Antalgic,Decreased Stride Length,Decreased Feet Clearance,Flexed Trunk Factors Limiting Gait Function Factors Limiting Gait Function Decreased Activity Tolerance, Limited Range of Motion,Pain, Poor Balance M5 PT-IP Objective Assessments Start: 02/16/19 16:50 Freq: NEEDED Status: Active Protocol: Document 02/17/19 15:59 NFW (Rec: 02/17/19 16:09 NFW [id number]) Other Assessments Other Other Assessments (+) UE tremors M6 PT-IP Treatment Start: 02/16/19 16:50 Freq: NEEDED Status: Active Protocol: Document 02/17/19 15:59 NFW (Rec: 02/17/19 16:09 NFW [id number]) Physical Therapy Treatment Education Education Provided Precautions,Weight Bearing Status,Post-Op Packet,Safety M7 PT-IP Assessment and Plan Start: 02/16/19 16:50 Freq: NEEDED Status: Active Protocol: Document 02/17/19 15:59 NFW (Rec: 02/17/19 16:09 NF [id number]) PT Summary Assessment and Plan Potential Rehabilitation Potential Good Status of Condition at Evaluation Stable Summary Impairments Pain,ROM,Strength,Balance,Tone ,Bed Mobility,Transfers,Gait, Activity Tolerance Assessment Summary Pt not doing as well this afternoon. Required min. assist with bed mobility activites and encouragement in ambulation. Goals Bed Mobility Goal Independent Transfer Goal Independent,Front Wheeled Walker Gait Goal Independent,Front Wheel Walker Gait Distance 250 Days to Meet Goals 4 Frequency of Treatment Frequency Of Treatment Twice a Day Treatment Plan Physical Therapy Treatment Plan Bed Mobility Training,Transfer Training,Gait Training, Therapeutic Exercise,Balance Retraining,Post Op Education, Discharge Planning,Hot or Cold Pack,Neuromuscular Re-ed, Coordination Retraining,Manual Therapy Recommendations To Nursing Amount of Assist Needed 1 Person Assist Discharge Recommendations PT Discharge Recommendations Home with Assistance
--- NOTE | 2019-02-17 17:01 | PC.NURSE ---
Addendum entered by Tiffany Elise R.N. 02/17/19 22:39: Pt requests assistance to turn multiple times throughout this shift. Prefers right sidelying, but will also rest on back for periods of time. Addendum entered by Tiffany Elise R.N. 02/17/19 21:29: Pt's son, Rupesh, phones this music writer to check on pt's status. This music writer requested advance directive which son states is in safe deposit box at bank and unattainable on weekend. Pt reports was able to sleep well for several hours. Rates back incisional pain 7/10 down from 9/10. Increased pain with movement. Refuses ice to back incision. Medicated with 4 mg po dilaudid as per emar. Assisted pt to reposition onto right side as per request. I.S. in pt's bed and readily available for pt to use. Foot scd's BL in place. Soto to gravity and draining. Bed alarm set for pt safety. Held coreg for bp 103/61 with hr 73 and providing pt with significant doses narcotic pain medications. Addendum entered by Tiffany Elise R.N. 02/17/19 17:46: Pt's son, Rupesh, not present to request advance directive. Addendum entered by Tiffany Elise R.N. 02/17/19 17:36: Pt assisted into position in bed for safe eating of evening meal. Reports pain to back remains 9/10 without any significant improvement today. Administered 4 mg po dilaudid and will monitor for relief. Original Note: Pt reports back pain 9/10 upon P.T.'s entry into room to mobilize pt. P.T. is able to move pt to edge of bed, standing and then ambulating around [facility] nurse's station. Pt reports more pain and difficulty with ambulation with afternoon session of P.T. Pt admits to full sensation to BL LE's. Coversite dressing to central lower back is dry and intact. Pt declines offer to sit up in chair stating bed is much more comfortable positioned onto right side. Utilizing log rolling technique, P.T. assists pt to lie down on right side in bed with ice to back. BL foot pumps placed. Daughter visiting at bedside. Pain meds as per emar.
[2019-02-17] MEDS: ISOSORBIDE MONONITRATE ER 30 MG TABLET PO (17:30)
[2019-02-17] MEDS: HYDROMORPHONE 4 MG TABLET PO ×2 (17:30→21:15)
[2019-02-17] MEDS: SENNOSIDES 8.6 MG TABLET 17.2 MG PO (21:14)
[2019-02-17] MEDS: SODIUM CHLORIDE 0.9% FLUSH 10 ML IV (21:15)
[2019-02-18] VITALS (9 sets, daily range): BP systolic 90–125; BP diastolic 49–75; PULSE 71–86; RESP 16–18; TEMP 36.6–38.1; O2SAT 93–97
--- NOTE | 2019-02-18 03:47 | PC.NURSE ---
Dressing CDI, patient more comfortable on right side. Rates pain 8/10. Declined pain med, said this was acceptable level for him. Agreed to allow medication prior to next turn to his left.
[2019-02-18] MEDS: HYDROMORPHONE 4 MG TABLET PO ×5 (04:01→21:40)
[2019-02-18] MEDS: HYDROCODONE/ACET 5/325 TABLET 2 TAB PO (05:22)
[2019-02-18] MEDS: ROSUVASTATIN 10 MG TABLET 20 MG PO (08:34)
[2019-02-18] MEDS: DOCUSATE 100 MG CAPSULE PO ×2 (08:34→21:41)
[2019-02-18] MEDS: hydrOXYzine pamoate 25 MG CAPSULE PO ×4 (08:34→21:41)
[2019-02-18] MEDS: LISINOPRIL 5 MG TABLET 10 MG PO (08:34)
[2019-02-18] MEDS: CHOLECALCIFEROL (VITAMIN D3) 1,000 UNIT TABLET 1000 UNIT PO (08:35)
[2019-02-18] MEDS: ACETAMINOPHEN 325 MG TABLET 650 MG PO (08:36)
[2019-02-18] MEDS: carvediloL 3.125 MG TABLET 1.56 MG PO (11:03)
--- NOTE | 2019-02-18 11:07 | PM.PN.1 ---
Exam Vital Signs (past 8 hours): - 02/18/19 06:02 02/18/19 07:50 02/18/19 11:03 Temperature 100.6 F H 97.8 F Pulse Rate 71 86 Respiratory Rate 16 16 Blood Pressure 123/75 125/75 Pulse Oximetry 96 Oxygen Delivery Method Room Air Oxygen Flow Rate 0 Objective Labs Result Diagrams: 02/17/19 04:45 Assessment & Plan Assessment & Plan narrative: Patient is admitted after surgery. Patient has been stable and progressing with physical therapy. Patient is neurovascularly intact on exam. Patient has no signs or symptoms of DVT. Patient's dressing is clean dry and intact. Patient lives alone. Improved pain today. Will do more PT for mobility training. Patient would like to go to SNF since he does not have much help at home. Will discuss with SW and plan accordingly. Quality VTE Deep Vein Thrombosis/Pulmonary Embolism Present on Admission: No
--- NOTE | 2019-02-18 13:08 | PT.IPTN ---
Current Diagnoses Other spondylosis with radiculopathy, lumbosacral region (02/16/19) Spinal stenosis, lumbar region without neurogenic claudication (02/16/19) Arthrodesis status (02/16/19) Surgery Performed Operation Date: 02/16/19 07:45 Actual Procedures p L3-4,L4-5 TLIF, L2-3 HWR,L2-S1 PSF w/instrumentation - Alvin Oscar MD Physical Therapy Treatment Note M2 PT-IP Current Condition Start: 02/16/19 16:50 Freq: NEEDED Status: Active Protocol: Document 02/17/19 15:59 NFW (Rec: 02/17/19 16:09 NFW [id number]) Physical Therapy Current Condition Precautions Lumbar Precautions Log Roll,No Twisting,Limit Bending,Lifting Restriction of 10 lbs,Gait Belt above Incisional Area Weight Bearing Status Weight Bearing Status Full Weight Bearing M3 PT-IP Subjective Start: 02/16/19 16:50 Freq: NEEDED Status: Active Protocol: Document 02/18/19 13:01 AW (Rec: 02/18/19 13:08 AW [id number]) Subjective Physical Therapy Visit Type Type Treatment Note Visit Start Time 12:23 Visit Stop Time 12:43 Total Visit Minutes 20 Number of ALLIANCE MANAGER Visits 0 Physical Therapy Visit Comments Patient Comments Pt in a great deal of pain but interested in going for a walk. Pain meds administered at start of session. Therapy Pain Assessment Pain When Pain Assessed During Mobility Pain Present Pain Present Pain Reported Location Lower Back Intensity 9 Scale Used 8/10 at rest; 9/10 with mobility Pain Management Techniques Apply Cold,Re-positioning, Timing of Activity with Medications M4 PT-IP Mobility and Gait Start: 02/16/19 16:50 Freq: NEEDED Status: Active Protocol: Document 02/18/19 13:01 AW (Rec: 02/18/19 13:08 AW [id number]) PT-Bed Mobility Assessment Rolling Type of Rolling Log Rolling Level of Assist Standby Assistance Supine to Sit Supine to Sit Contact Guard Assistance Scooting Scooting to Edge of Bed Standby Assistance PT-Transfer Assessment Sit to and From Stand Sit to and from Stand Standby Assistance,1 Person Assistance,Use of Upper Extremities Equipment Transfer Assistive Device Gait Belt,Front Wheeled Walker Orthotic/Prosthetic Devices or Brace: No Transfers Transfer Destination Chair Transfer Technique ambulated using FWW Transfer Ability Level of Assist Standby Assistance Comments Mobility Comments Pt complted log roll SBA but required CGA to achieve sitting EOB secondary to pain. All transfers completed SBA with verbal cues for stand to sit to ensure safe use of UE's to control descent. Gait Assessment Gait Gait Assistance Required: Contact Guard Assist Distance (Feet) 150 Able to Maintain Weight Bearing Status Yes During Gait Assistive Devices Assistive Device Gait Belt,Front Wheeled Walker Orthotic/Prosthetic Devices or Brace: No Gait Deviations General Gait Pattern Antalgic,Decreased Stride Length,Decreased Feet Clearance,Flexed Trunk,Step-to Gait Factors Limiting Gait Function Factors Limiting Gait Function Decreased Activity Tolerance, Limited Range of Motion,Pain, Poor Balance Comments Gait Comments Pt ambulated 150 feet using FWW CGA with primary complaint of left hip pain, evident in gait with decreased LLE stance time and decreased RLE step length. M5 PT-IP Objective Assessments Start: 02/16/19 16:50 Freq: NEEDED Status: Active Protocol: Document 02/17/19 15:59 NFW (Rec: 02/17/19 16:09 NFW [id number]) Other Assessments Other Other Assessments (+) UE tremors M6 PT-IP Treatment Start: 02/16/19 16:50 Freq: NEEDED Status: Active Protocol: Document 02/18/19 13:01 AW (Rec: 02/18/19 13:08 AW [id number]) Physical Therapy Treatment Education Education Provided Precautions,Safety M7 PT-IP Assessment and Plan Start: 02/16/19 16:50 Freq: NEEDED Status: Active Protocol: Document 02/18/19 13:01 AW (Rec: 02/18/19 13:08 AW [id number]) PT Summary Assessment and Plan Potential Rehabilitation Potential Good Status of Condition at Evaluation Stable Summary Impairments Pain,ROM,Strength,Balance,Tone ,Bed Mobility,Transfers,Gait, Activity Tolerance Progress Towards Goals Slow Progress due to Pain Assessment Summary Pt primarily limited by pain but shows good effort with therapy. He increased his ambulation distance and level of assist with transfers. Goals Bed Mobility Goal Independent Transfer Goal Independent,Front Wheeled Walker Gait Goal Independent,Front Wheel Walker Gait Distance 250 Days to Meet Goals 3 Frequency of Treatment Frequency Of Treatment Twice a Day Treatment Plan Physical Therapy Treatment Plan Bed Mobility Training,Transfer Training,Gait Training, Therapeutic Exercise,Balance Retraining,Post Op Education, Discharge Planning,Hot or Cold Pack,Neuromuscular Re-ed, Coordination Retraining,Manual Therapy Recommendations To Nursing Amount of Assist Needed 1 Person Assist Discharge Recommendations PT Discharge Recommendations Home with Assistance
--- NOTE | 2019-02-18 13:25 | CM.DPC ---
DCP Cont: Confirmed with Alejandro at [facility] that they can accept patient tomorrow. Son is to be here to see patient this afternoon, as well. Updated orthopedist, Dr. Oscar, regarding plan, so he is aware. P: DCP to continue to follow. Patient should be able to discharge to [facility] tomorrow. PASSR completed. Leida Huddleston RN/Supervisor Metal Hanging
--- NOTE | 2019-02-18 14:43 | CM.DPC ---
DCP Cont: Met with patient's son Ruy, and daughter, Leyla Reyna. Son lives and works in [place], and daughter lives and works in [place]. Son wanted to ensure that patient was going to go to a rehab versus going home. Son mentioned, if he had to go home, one of us would have to take off work to help take care of him. Son stated that the last time that patient went home after surgery, he stayed with his father, it was very difficult, he didn't have home health, and he was in a lot of pain, and unable to have a bowel movement. Son did mention that he made changes in the home since them, bars in the shower, etc. Let son and daughter know that patient is accepted at [facility]. Son is happy that he won't be going right home after surgery, since there is not anyone there every day. Let them know that after patient goes to rehab, that facility may be able to order home health. Asked son and patient if he was interested in looking at [facility] Resource book for possible home caregivers in the future. Patient declined, his hope is to get stronger to go back home. Son is in agreement. Had to ensure that private caregivers are not the same as home health. P: DCP to continue to follow. Plan is for [facility] tomorrow. Update son and daughter time that he will be transported. Son is planning on coming back to [place] later this week to see him at [facility]. Leida Huddleston RN/Truck Rental Clerk
--- NOTE | 2019-02-18 14:57 | PC.NURSE ---
Pain/ortho: SMy pain is better now. Has been getting dilaudid and vistaril together q4hr and pt reports this is the most comfortable he has been. SAnything below an 8 is good for me. After pain meds pt reports his pain was at a 6 which he felt was good. Still minimal mobility and pt didn't want willingham removed yet. MD Oscar made aware and willingham has been left in for now. Pt needs cues for his lami precautions, likes to lay on his right side and discussed positioning and off load pressure. Pt verb understanding. SI do that because I have less pain when I lay like that. Pt plans to d/c to snf tomorrow for rehab. Cont w/poc.
--- NOTE | 2019-02-18 15:32 | PT-IP ANOTE ---
Checked on pt x2 but pt requested to sleep and requested this AUTOMOTIVE SALESPERSON come back in thirty minutes.
--- NOTE | 2019-02-18 16:15 | PT.IPTN ---
Current Diagnoses Other spondylosis with radiculopathy, lumbosacral region (02/16/19) Spinal stenosis, lumbar region without neurogenic claudication (02/16/19) Arthrodesis status (02/16/19) Surgery Performed Operation Date: 02/16/19 07:45 Actual Procedures p L3-4,L4-5 TLIF, L2-3 HWR,L2-S1 PSF w/instrumentation - Alvin Oscar MD Physical Therapy Treatment Note M2 PT-IP Current Condition Start: 02/16/19 16:50 Freq: NEEDED Status: Active Protocol: Document 02/17/19 15:59 NFW (Rec: 02/17/19 16:09 NFW [id number]) Physical Therapy Current Condition Precautions Lumbar Precautions Log Roll,No Twisting,Limit Bending,Lifting Restriction of 10 lbs,Gait Belt above Incisional Area Weight Bearing Status Weight Bearing Status Full Weight Bearing M3 PT-IP Subjective Start: 02/16/19 16:50 Freq: NEEDED Status: Active Protocol: Document 02/18/19 15:51 CLB (Rec: 02/18/19 16:14 CLB [id number]) Subjective Physical Therapy Visit Type Type Treatment Note Visit Start Time 15:51 Visit Stop Time 16:11 Total Visit Minutes 15 Number of LACE MENDER Visits 1 Physical Therapy Visit Comments Patient Comments Pt states pain is 9/10 but wants to get up and walk. Therapy Pain Assessment Pain When Pain Assessed During Mobility Pain Present Pain Present Pain Reported Location left hip Intensity 9 Scale Used Numeric (1 - 10) Lower Back Intensity 9 Scale Used 9/10 at rest as well Pain Management Techniques Apply Cold,Re-positioning, Timing of Activity with Medications M4 PT-IP Mobility and Gait Start: 02/16/19 16:50 Freq: NEEDED Status: Active Protocol: Document 02/18/19 15:51 CLB (Rec: 02/18/19 16:14 CLB [id number]) PT-Bed Mobility Assessment Rolling Type of Rolling Log Rolling Level of Assist Standby Assistance Supine to Sit Supine to Sit Contact Guard Assistance Scooting Scooting to Edge of Bed Minimal Assistance PT-Transfer Assessment Sit to and From Stand Sit to and from Stand Contact Guard Assistance,1 Person Assistance,Use of Upper Extremities Equipment Transfer Assistive Device Gait Belt,Front Wheeled Walker Orthotic/Prosthetic Devices or Brace: No Transfers Transfer Destination Chair Transfer Technique ambulated using FWW Transfer Ability Level of Assist Contact Guard Assistance Gait Assessment Gait Gait Assistance Required: Contact Guard Assist,1 Person Assist Distance (Feet) 20 Assistive Devices Assistive Device Gait Belt,Front Wheeled Walker Orthotic/Prosthetic Devices or Brace: No Gait Deviations General Gait Pattern Antalgic,Decreased Stride Length,Decreased Feet Clearance,Flexed Trunk,Step-to Gait Factors Limiting Gait Function Factors Limiting Gait Function Decreased Activity Tolerance, Limited Range of Motion,Pain, Poor Balance Comments Gait Comments Pt with pain 11/21 with increase in pain of left hip and was unable to ambulate further than ~40ft. M5 PT-IP Objective Assessments Start: 02/16/19 16:50 Freq: NEEDED Status: Active Protocol: Document 02/17/19 15:59 NFW (Rec: 02/17/19 16:09 NFW [id number]) Other Assessments Other Other Assessments (+) UE tremors M6 PT-IP Treatment Start: 02/16/19 16:50 Freq: NEEDED Status: Active Protocol: Document 02/18/19 13:01 AW (Rec: 02/18/19 13:08 AW [id number]) Physical Therapy Treatment Education Education Provided Precautions,Safety M7 PT-IP Assessment and Plan Start: 02/16/19 16:50 Freq: NEEDED Status: Active Protocol: Document 02/18/19 15:51 CLB (Rec: 02/18/19 16:14 CLB [id number]) PT Summary Assessment and Plan Summary Assessment Summary Pt continues to be limited by pain. Pt required increase in assist to EOB using bed handle and assist with draw sheet. Pt pain in left hip prevented pt from ambulating further than ~40ft. Pt left in chair with warm blankets, call light and all other needs. METAL SANDER informed. Goals Bed Mobility Goal Independent Transfer Goal Independent,Front Wheeled Walker Gait Goal Independent,Front Wheel Walker Gait Distance 250 Days to Meet Goals 3 Frequency of Treatment Frequency Of Treatment Twice a Day Treatment Plan Physical Therapy Treatment Plan Bed Mobility Training,Transfer Training,Gait Training, Therapeutic Exercise,Balance Retraining,Post Op Education, Discharge Planning,Hot or Cold Pack,Neuromuscular Re-ed, Coordination Retraining,Manual Therapy Recommendations To Nursing Amount of Assist Needed 1 Person Assist Discharge Recommendations PT Discharge Recommendations Home with Assistance
[2019-02-18] MEDS: ISOSORBIDE MONONITRATE ER 30 MG TABLET PO (17:12)
[2019-02-18] MEDS: SENNOSIDES 8.6 MG TABLET 17.2 MG PO (21:41)
[2019-02-18] MEDS: MAGNESIUM HYDROXIDE 30 ML UDC PO (21:41)
[2019-02-19] MEDS: HYDROMORPHONE 4 MG TABLET PO ×2 (01:35→05:48)
--- NOTE | 2019-02-19 03:40 | PC.NURSE ---
Patient still having pain. Dilaudid 4 mg po lasts about 3.5 hours before pain flares up. Pain escalates when patient tries to reposition himself. He draws up knees, and does not like to log roll despite education. Able to rest again once medication is effective. Declines ice for surgical site. States hurts too bad.
[2019-02-19 05:55] VITALS: BP 144/70; PULSE 77; RESP 16; TEMP 37.2; O2SAT 92
--- NOTE | 2019-02-19 07:45 | P.DS_ITS ---
History of Present Illness History of Present Illness Date Patient Seen: 02/19/19 Time Patient Seen: 07:45 Chief complaint: Translaminar Interbody Fusion/Laminotomy Narrative: Patient has been having chronic back pain and worsening lumbar radiculopathy. Patient failed multiple conservative management with worsening pain weakness and numbness in her lower extremity. Patient has been having difficulty performing activity of daily living. After discussing risks benefits of treatment options, patient elected proceed with surgery. Discharge Providers Provider Date of admission: 02/16/19 06:24 Discharge Date: 02/19/19 Primary care physician: BIBI Swain Consults: 02/16/19 14:52 Consult to Occupational Therapy Evaluate & Treat Comment: Physician Instructions: Evaluate and treat Consult to Physical Therapy Evaluate & Treat Comment: Physician Instructions: Evaluate and Treat 02/16/19 16:28 Consult to Dietitian, Adult Routine Comment: Reason For Exam: Kidney issues, no berries,nuts, seeds, chocolate. 02/16/19 23:10 Consult to SAFE DEPOSIT ATTENDANT - Database Designer Routine Comment: possibly placement for rehab at discharge. Discharge provider: lGo Ness PA-C Summary Hospital Course Discharge Diagnosis: s/p lumbar fusion Scoliosis Hyperlipidemia History of DVT History of cardiac blockage Bilateral shoulder pain Back pain Hospital Course: Jaylen was admitted for a L2-S1 posterior fusion. Patient was slow to mobilize, and had difficulty managing pain. On postop day 3. Patient was ready to discharge to have [facility]. He was eating without difficulty or assistance. Catheter was removed prior to discharge. He was mobilizing with physical therapy throughout his stay. Pain well controlled with Dilaudid, and Vistaril. Cover site dressing applied prior to discharge. Status at Discharge Functional status at discharge: uses cane/walker Exam Vital Signs (past 8 hours): - 02/19/19 05:55 Temperature 98.9 F Pulse Rate 77 Respiratory Rate 16 Blood Pressure 144/70 H Pulse Oximetry 92 Oxygen Delivery Method Room Air Oxygen Flow Rate 0 Narrative Exam Narrative: Jaylen is sitting up in bed in NAD. He is alert and oriented X3. Calves are soft, compressible, nontender bilaterally. Sensation intact to light touch throughout bilateral lower extremities. He is able to actively dorsiflex and plantar flex. He has had significant improvement in pain control with Dilaudid. He has been mobilizing around his room with a walker. He still has a Soto catheter in place. Objective Labs Result Diagrams: 02/17/19 04:45 Discharge Plan Discharge Plan Patient Disposition: SNF Transfer to: [facility] Under care of provider: Facility MD Consult as needed: Dental, Hearing, Mental health, Podiatry and Vision Discharge orders & Medications Prescriptions: New acetaminophen 325 mg Tablet 650 mg PO Q6HR PRN (Reason: Pain, Mild (1-3)) Qty: 60 RF: 0 hydromorphone 2 mg Tablet 2 mg PO Q4HR PRN (Reason: Pain, Severe (7-10)) Qty: 40 RF: 0 docusate sodium [DOK] 100 mg Capsule 100 mg PO BID Qty: 60 RF: 0 hydroxyzine pamoate 25 mg Capsule 25 mg PO Q4HR PRN (Reason: Nausea And Vomiting) Qty: 40 RF: 0 Continued cholecalciferol (vitamin D3) [Vitamin D3] 1,000 unit Capsule 1,000 unit PO DAILY Qty: 0 RF: 0 [id number] [krill oil] [id number] mg Capsule 1 cap PO DAILY Qty: 0 RF: 0 rosuvastatin [Crestor] 20 MG tablet 20 mg PO QDAY Qty: 0 RF: 0 lisinopril [Zestril] 5 MG tablet 10 mg PO QAM Qty: 0 RF: 0 isosorbide mononitrate 30 mg Tablet Extended Release 24 Hr 30 mg PO QPM RF: 0 aspirin [Aspir-81] 81 mg Tablet,Delayed Release (Dr/Ec) 81 mg PO BID RF: 0 carvedilol 3.125 mg Tablet 1.56 mg PO BID RF: 0 Discontinued ibuprofen 200 mg Tablet 400 - 600 mg PO Q6H PRN (Reason: Pain) RF: 0 Follow up/Referrals: Megan See ARNP [Primary Care Provider] - Alvin Oscar MD [Physician] - Diet/Activity/Treatments Diet: Diet as Tolerated Liquid consistency: Normal/Thin Food texture: Regular Activity: No excessive bending, lifting, or twisting Skin/Wound/Dressing Care Report to your healthcare provider any signs of infection, such as:: chills, fever and increased pain Dressing: Cover site dressing in place until appointment [facility] Reason for rehabilitation: Post-operative therapy Rehab type: Physical therapy and Occupational therapy Visit Report/Discharge Packet Instructions: DI for Transforaminal Lumbar Interbody Fusion Discharge Data Primary Care Provider: Megan See VTE Deep Vein Thrombosis/Pulmonary Embolism Present on Admission: No
[2019-02-19 08:00] VITALS: BP 142/87; PULSE 81; RESP 18; TEMP 37.4; O2SAT 97
--- NOTE | 2019-02-19 08:34 | OT.IP.TRT ---
Current Diagnoses Other spondylosis with radiculopathy, lumbosacral region (02/16/19) Spinal stenosis, lumbar region without neurogenic claudication (02/16/19) Arthrodesis status (02/16/19) Surgery Performed Operation Date: 02/16/19 07:45 Actual Procedures p L3-4,L4-5 TLIF, L2-3 HWR,L2-S1 PSF w/instrumentation - Alvin Oscar MD Occupational Therapy Treatment Note M2 OT-IP Current Condition Start: 02/17/19 13:44 Freq: Status: Active Protocol: Document 02/17/19 13:45 CGR (Rec: 02/17/19 14:00 CGR [id number]) Occupational Therapy Current Condition Current Condition Evaluation Date 02/17/19 Treatment Diagnosis L2-S1 lami, hardware placement , bone graft and revision of old sx. Diagnosis Onset Date 02/16/19 Post Operative Precautions Lumbar Precautions Log Roll,No Twisting,Limit Bending,Lifting Restriction of 10 lbs,Gait Belt above Incisional Area M3 OT- IP Subjective and Pain Start: 02/17/19 13:44 Freq: Status: Active Protocol: Document 02/19/19 08:34 [facility] (Rec: 02/19/19 10:47 [facility] [id number]) OT- Subjective Occupational Therapy Visit Type Type Treatment Note Visit Start Time 08:34 Visit Stop Time 09:17 Total Visit Minutes 43 Occupational Therapy Visit Comments Patient Comments Pt wanting to shower. Patient/Caregiver Goals To go to skilled rehab first to get stronger and be able to do things form himself again. OT Pain Assessment Pain When Pain Assessed During Mobility Pain Present Pain Present Pain Reported Location left hip Intensity 9 Scale Used Numeric (1 - 10) M4 OT- IP ADL's Start: 02/17/19 13:44 Freq: Status: Active Protocol: Document 02/19/19 08:34 [facility] (Rec: 02/19/19 10:47 [facility] [id number]) OT [id number] Comments OT Self-Feeding Comments Not meal time OT ADL-Grooming Comments OT Grooming Comments Pt states did earlier. OT ADL-Dressing General Eval Upper Body Dressing Ability Independent Lower Body Dressing Ability Maximum Assistance Areas Needing Assistance Underpants/Brief,Socks Comments OT Dressing Comments Pt in too much pain and tired from the shower and just wanted therapist to assist for LB dressing needs at this time. OT ADL-Toileting Comments OT Toileting Comments Soto just taken out. OT ADL-Bathing Bathing Type Bathing Type Shower General Evaluation Bathing Ability Moderate Assistance Areas Needing Assistance Wash/Dry Back,Wash/Dry Perineal Area,Wash/Dry Lower Extremities Devices Bathing Equipment Hand Held Shower Sprayer, Shower Chair with Arms,Grab Bars Comments OT Bathing Comments Pt needing assist due to unable to reach his feet. DONNA for balance while standing to do pericare needs and also heavy use of grab bar to assist to stand. M6 OT- IP Functional Cognition Start: 02/17/19 13:44 Freq: Status: Active Protocol: Document 02/19/19 08:34 [facility] (Rec: 02/19/19 10:47 [facility] [id number]) Cognitive Factors Limiting Selfcare Function Cognitive Comments Cognitive Assessment Comments Pt able to adhere to back precautions for ADl needs today. Pt still needing cues to push from surface standing from and reach back with his hands before sitting. M7 OT- IP Mobility and Balance Start: 02/17/19 13:44 Freq: Status: Active Protocol: Document 02/19/19 08:34 [facility] (Rec: 02/19/19 10:47 [facility] [id number]) OT- Bed Mobility Assessment Rolling Type of Rolling Log Rolling,Roll to Right Level of Assistance Standby Assistance Sit to Supine Sit to Supine Assist Standby Assistance OT-Transfer Assessment Sit to and From Stand Sit to and from Stand Contact Guard Assistance Transfers Transfer Ability Standby Assistance,Minimal Assistance Technique Transfer Destination Bed,Chair,Shower Stall Devices Transfer Assistive Devices Gait Belt,Front Wheeled Walker Comments Mobility Comments Pt needing assist for balance while stepping over the thereshold of the shower with FWW. Otherwise if SBA to walk in the room with FWW. OT- Balance Assessment Sitting Balance and Reactions Static Sitting Balance Ability Good Dynamic Sitting Balance Ability Fair M8 OT- IP Objective Assessments Start: 02/17/19 13:44 Freq: Status: Active Protocol: Document 02/17/19 13:45 CGR (Rec: 02/17/19 14:00 CGR [id number]) OT Gross Range of Motion Upper Extremity Range of Motion Assessment Within Functional Limits OT Strength Upper Extremity Strength Assessment Within Functional Limits Hand [employer] Specialist Strength Hand Dominance Right OT- Coordination Assessment Upper Extremity Finger to Nose Test Bilateral UE Impaired Finger Tapping Test Bilateral UE Impaired Comments Coordination Comments Pt with essential tremmor that he has had for 10 years. OT-Muscle Tone Assessment Muscle Tone WNL Yes OT Sensation Assessment Edema Edema Absent M9 OT- IP Assessment and Plan Start: 02/17/19 13:44 Freq: Status: Active Protocol: Document 02/19/19 08:34 [facility] (Rec: 02/19/19 10:47 [facility] [id number]) OT Summary Assessment and Plan Potential Rehabilitation Potential Excellent Analytic Complexity at Evaluation Low Summary OT Impairments Pain,Coordination,Functional Cognition,Functional Mobility, Grooming,Dressing,Toileting, Bathing,Toilet Transfers, Shower Transfers Progress Towards Goals Progressing Toward Goals Assessment Summary Pt waiting to have a bowel movement and hopefully to go to skilled rehab today. Goals Grooming Goal Independent Dressing Goal Independent Toileting Goal Independent Bathing Goal Independent Shower Transfer Goal Independent Days to Meet Goals 5 Frequency of Treatment Frequency Of Treatment Once a Day Treatment Plan OT Treatment Plan ADL Training,Functional Cognition Training,Functional Mobility,Patient/Family Education,Discharge Planning Discharge Recommendations OT Discharge Recommendations SNF Rehab Home Equipment Needs TBD
[2019-02-19] MEDS: LISINOPRIL 5 MG TABLET 10 MG PO (09:28)
[2019-02-19] MEDS: CHOLECALCIFEROL (VITAMIN D3) 1,000 UNIT TABLET 1000 UNIT PO (09:29)
[2019-02-19] MEDS: DOCUSATE 100 MG CAPSULE PO (09:29)
[2019-02-19] MEDS: MAGNESIUM HYDROXIDE 30 ML UDC PO (09:29)
[2019-02-19] MEDS: ROSUVASTATIN 10 MG TABLET 20 MG PO (09:29)
[2019-02-19] MEDS: carvediloL 3.125 MG TABLET 1.56 MG PO (09:32)
[2019-02-19] MEDS: HYDROMORPHONE 2 MG TABLET 4 MG PO (09:33)
[2019-02-19] MEDS: SODIUM CHLORIDE 0.9% FLUSH 10 ML IV (09:33)
[2019-02-19] MEDS: BISACODYL 10 MG SUPP PR (10:17)
--- NOTE | 2019-02-19 10:22 | PT.IPTN ---
Documentation reviewed by Yenifer Almonte PTA Current Diagnoses Other spondylosis with radiculopathy, lumbosacral region (02/16/19) Spinal stenosis, lumbar region without neurogenic claudication (02/16/19) Arthrodesis status (02/16/19) Surgery Performed Operation Date: 02/16/19 07:45 Actual Procedures p L3-4,L4-5 TLIF, L2-3 HWR,L2-S1 PSF w/instrumentation - Alvin Oscar MD Physical Therapy Treatment Note M2 PT-IP Current Condition Start: 02/16/19 16:50 Freq: NEEDED Status: Active Protocol: Document 02/17/19 15:59 NFW (Rec: 02/17/19 16:09 NFW [id number]) Physical Therapy Current Condition Precautions Lumbar Precautions Log Roll,No Twisting,Limit Bending,Lifting Restriction of 10 lbs,Gait Belt above Incisional Area Weight Bearing Status Weight Bearing Status Full Weight Bearing M3 PT-IP Subjective Start: 02/16/19 16:50 Freq: NEEDED Status: Active Protocol: Document 02/19/19 10:22 JULITA (Rec: 02/19/19 11:05 JULITA [email or web address]) Subjective Physical Therapy Visit Type Type Treatment Note Visit Start Time 10:22 Visit Stop Time 10:46 Total Visit Minutes 24 Notes Treatment supervised by GRABIEL Streeter. Number of YOUTH NUTRITIONAL MONITOR Visits 2 Physical Therapy Visit Comments Patient Comments Pt states pain is 8/10 in back and 9/10 in L hip, but is willing to work w/ therapy. Therapy Pain Assessment Pain When Pain Assessed During Mobility Pain Present Pain Present Pain Reported Location left hip Intensity 9 Scale Used Vela-Callahan (Faces) Description Sharp,Stabbing Pain Behaviors Facial Grimacing,Holding Area, Wincing Lower Back Intensity 8 Scale Used Vela-Callahan (Faces) Description Dull Pain Management Techniques Re-positioning,Timing of Activity with Medications M4 PT-IP Mobility and Gait Start: 02/16/19 16:50 Freq: NEEDED Status: Active Protocol: Document 02/19/19 10:22 JULITA (Rec: 02/19/19 11:05 JULITA [id number]) PT-Bed Mobility Assessment Rolling Type of Rolling Log Rolling,Roll to Right Level of Assist Standby Assistance Supine to Sit Supine to Sit Contact Guard Assistance Scooting Scooting to Edge of Bed Contact Guard Assistance PT-Transfer Assessment Sit to and From Stand Sit to and from Stand Contact Guard Assistance,1 Person Assistance,Use of Upper Extremities Equipment Transfer Assistive Device Gait Belt,Front Wheeled Walker Orthotic/Prosthetic Devices or Brace: No Transfers Transfer Destination Bed Transfer Technique ambulated using FWW Transfer Ability Level of Assist Standby Assistance,Minimal Assistance Comments Mobility Comments Pt was sidelying on R side upon arrival from PT. Recalled 1/3 precautions. Able to perform log roll onto back and then back onto R side. SBA for sup<>sit and scooting towards EOB. CGA for sit<> Stand w/ cues to push up from bed. CGA for stand<>sit w/ cues to reach back. Min A for sit<>sup for LE assistance due to high level of pain in L hip. Pt left side lying on R w / all needs in reach. Gait Assessment Gait Gait Assistance Required: Contact Guard Assist,1 Person Assist Distance (Feet) 60 Able to Maintain Weight Bearing Status Yes During Gait Assistive Devices Assistive Device Gait Belt,Front Wheeled Walker Orthotic/Prosthetic Devices or Brace: No Gait Deviations General Gait Pattern Antalgic,Decreased Stride Length,Decreased Feet Clearance,Flexed Trunk,Step-to Gait Factors Limiting Gait Function Factors Limiting Gait Function Decreased Activity Tolerance, Limited Range of Motion,Pain, Poor Balance Comments Gait Comments Pt reported 9/10 pain of L hip during movement and ambulation. Stated that his hip locks up and is a much sharper pain than his back pain (reported at 8/10 dull). Pt ambulated ~60 ft in hallway . Demonstrated proper use of FWW. He has modified stride length to avoid L hip locking and intense pain. PT-Balance Assessment Sitting Balance and Reactions Static Sitting Balance Ability Good Dynamic Sitting Balance Ability Good Standing Balance and Reactions Static Standing Balance Ability Fair Dynamic Standing Balance Ability Fair Device Used FWW M5 PT-IP Objective Assessments Start: 02/16/19 16:50 Freq: NEEDED Status: Active Protocol: Document 02/17/19 15:59 NFW (Rec: 02/17/19 16:09 NFW [id number]) Other Assessments Other Other Assessments (+) UE tremors M6 PT-IP Treatment Start: 02/16/19 16:50 Freq: NEEDED Status: Active Protocol: Document 02/19/19 10:22 JULITA (Rec: 02/19/19 11:05 JULITA [id number]) Physical Therapy Treatment Education Education Provided Precautions,Safety M7 PT-IP Assessment and Plan Start: 02/16/19 16:50 Freq: NEEDED Status: Active Protocol: Document 02/19/19 10:22 JULITA (Rec: 02/19/19 11:05 JULITA [id number]) PT Summary Assessment and Plan Potential Rehabilitation Potential Good Status of Condition at Evaluation Stable Summary Impairments Pain,ROM,Strength,Balance,Tone ,Bed Mobility,Transfers,Gait, Activity Tolerance Progress Towards Goals Slow Progress due to Pain Assessment Summary Pt continues to be limited by high levels of pain in both back and L hip. Able to perfrom logroll, sup<>sit, and scooting EOB w/ SBA. CGA for sit<>stand w/ FWW and ambulation. Min A for sit<>sup for LE assistance. Ambulated ~60ft in hallway, reported 9/ 10 pain. Repositioned pt in bed for comfort. Recommending SNF due to high levels of pain w/ movement and need for assistance w/ bed mobilty and transfers. Goals Bed Mobility Goal Independent Transfer Goal Independent,Front Wheeled Walker Gait Goal Independent,Front Wheel Walker Gait Distance 250 Days to Meet Goals 3 Frequency of Treatment Frequency Of Treatment Twice a Day Treatment Plan Physical Therapy Treatment Plan Bed Mobility Training,Transfer Training,Gait Training, Therapeutic Exercise,Balance Retraining,Post Op Education, Discharge Planning,Hot or Cold Pack,Neuromuscular Re-ed, Coordination Retraining,Manual Therapy Recommendations To Nursing Amount of Assist Needed 1 Person Assist Discharge Recommendations PT Discharge Recommendations SNF Rehab
[2019-02-19] MEDS: MINERAL OIL 1 EACH ENEMA PR (11:03)
--- NOTE | 2019-02-19 11:12 | CM.DPC ---
DCP Discharge SNF Per Ortho PA, pt medically stable to d/c to SNF today. SW called [facility] and updated on d/c today and they confirm that they can still accept the pt today and will provide transport around 1300. JESS updated RN and provided with the RN report line and RN continuing to support the pt with a bowel movement preferably prior to d/c to SNF. JESS faxed [facility] the signed med rec, script, d/c summary, visit report and PASRR to review. JESS called pt's son Rupesh and provided with update on d/c to SNF today around 1300 and son confirms he is still agreeable with d/c plan and states family will likely be up to visit pt at SNF later today or tomorrow. Plan: Patient to d/c to [facility] today around 1300 for ongoing rehab prior to safe return home. HERO Carter
--- NOTE | 2019-02-19 13:28 | PC.NURSE ---
Day shift: Pt d/c'd to [facility]. Dressing on back CDI. Report called to [facility] RN. Paperwork in packet and went w/ Pt to [facility]. Pt had a very large BM this afternoon after SUP [place] and enema.
== END 2019-02-19 13:29 | DRG 455 ==
PROVIDERS: Admitting Provider Orthopaedic Surgery Orthopaedic Surgery of the Spine; PCP Nurse Practitioner Family; Visit Provider Orthopaedic Surgery Orthopaedic Surgery of the Spine
PROC: 0SG10AJ Fusion of 2 or more Lumbar Vertebral Joints with Interbody Fusion Device, Posterior Approach, Anterior Column, Open Approach (ICD-10-PCS; principal; 2019-02-16 07:45)
DX: M48.061 Spinal stenosis, lumbar region without neurogenic claudication (principal); M51.26 Other intervertebral disc displacement, lumbar region; G20 Parkinson's disease; E78.5 Hyperlipidemia, unspecified; I25.10 Atherosclerotic heart disease of native coronary artery without angina pectoris; M48.07 Spinal stenosis, lumbosacral region; M47.26 Other spondylosis with radiculopathy, lumbar region; M47.27 Other spondylosis with radiculopathy, lumbosacral region; M41.26 Other idiopathic scoliosis, lumbar region; M96.1 Postlaminectomy syndrome, not elsewhere classified; G25.0 Essential tremor; G89.18 Other acute postprocedural pain
CPT/HCPCS: 36415; 72100; 76000; 85014; 85018; 97116; 97161; 97165; 97530; 97535; C1776; C9290; J0131; J0330; J0690; J1100; J1170; J2250; J2405; J2704; J3010

== ENCOUNTER → 2019-11-06 11:03 | Outpatient (CLI) | payer MEDICARE, SELFPAY ==
[2019-02-16 16:13] VITALS: BMI 27.5
[2019-11-06 13:43] LABS: Add Manual Diff / Slide Review NO; Basophils Absolute Auto 0 /uL (0-100); Basophils Percent Auto 0.8 % (0-2); Eosinophils Absolute Auto 100 /uL (0-450); Eosinophils Percent Auto 1.6 % (2-4); Hematocrit 40.4 % (41-53); Lymphocytes Absolute Auto 1700 /uL (1100-4500); Lymphocytes Percent Auto 34.3 % (25-40); Mean Corpuscular HGB Conc 34.6 % (30-36); Mean Corpuscular Hemoglobin 31.7 PG (26-34); Mean Corpuscular Volume 91.7 fL (80-100); Monocytes Absolute Auto 500 /uL (0-900); Monocytes Percent Auto 10.2 % (3-14); Neutrophils Absolute Auto 2600 /uL (1500-7000); Neutrophils Percent Auto 53.1 % (50-75); Platelet Count 213 X10^3/uL (150-400); Red Blood Cell Count 4.41 X10^6/uL (4.5-5.9); Red Cell Distribution Width 13.4 % (11.6-14.8); White Blood Cell Count 4.8 X10^3/uL (4.5-11.0)
[2019-11-06 14:06] LABS: Hemoglobin A1C% w Est Avg Glu 5.5 % (4.0-6.0)
[2019-11-06 14:19] LABS: BUN Creatinine Ratio 24.1 (6-22); Blood Urea Nitrogen 20 mg/dL (9-20); Calcium 9.6 mg/dL (8.4-10.2); Carbon Dioxide 26 mmol/L (22-32); Chloride 104 mmol/L (98-107); Estimated Glomerular Filt Rate > 60.0 mL/min (>60); Glucose 80 mg/dL (80-110); HEMOLYSIS < 15 (0-50); Potassium 4.8 mmol/L (3.4-5.1); Sodium 138 mmol/L (137-145)
== END ==
PROVIDERS: PCP Nurse Practitioner Family; Referring Provider Nurse Practitioner Family; Visit Provider Orthopaedic Surgery Adult Reconstructive Orthopaedic Surgery
DX: Z01.818 Encounter for other preprocedural examination (principal); Z01.812 Encounter for preprocedural laboratory examination; R73.9 Hyperglycemia, unspecified
CPT/HCPCS: 36415; 80048; 83036; 85025; 93005

== ENCOUNTER → 2019-11-27 08:46 | Outpatient (CLI) | payer MEDICARE, SELFPAY ==
[2019-02-16 16:13] VITALS: BMI 27.5
[2019-11-28 19:06] LABS: COVID19 Sendout Not Detected (Not Detect)
== END ==
PROVIDERS: PCP Nurse Practitioner Family; Visit Provider Physician Assistant
DX: Z11.59 Encounter for screening for other viral diseases (principal)
CPT/HCPCS: 87635

== ENCOUNTER 2019-11-30 09:06 | Inpatient (IN) | payer MEDICARE, SELFPAY ==
[2019-02-16 16:13] VITALS: BMI 27.5
[2019-11-27 15:09] VITALS: BMI 27.8
[2019-11-30] VITALS (14 sets, daily range): BP systolic 103–168; BP diastolic 53–96; PULSE 59–86; RESP 13–18; TEMP 35.8–36.5; O2SAT 94–100; BMI 25.9; BMI 26.4
--- NOTE | 2019-11-30 | DI.RAD.S_ITS ---
PROCEDURE: XR HIP LT 1V INDICATIONS: HIP ARTHRO TECHNIQUE: 2 view(s) of the hip acquired. COMPARISON: None. FINDINGS: Bones: Patient is status post left hip arthroplasty, with hardware components in expected positions. The hip joint appears congruent. The visualized bony structures appear intact. Soft tissues: Overlying postoperative changes are noted. No suspicious soft tissue densities. IMPRESSION: The left hip prosthesis is in anatomic alignment. Dictated by: Ana Malloy M.D. on 11/30/2019 at 14:26 Approved by: Ana Malloy M.D. on 11/30/2019 at 14:27
--- NOTE | 2019-11-30 06:00 | DI.RAD.S_ITS ---
PROCEDURE: XR PELVIS 1-2V INDICATIONS: total left hip TECHNIQUE: Single view(s) of the pelvis acquired. COMPARISON: None. FINDINGS: Bones: Expected postop appearance of left hip arthroplasty. There is expected postoperative alignment. Hardware appears intact. No fracture . Partially visualized lower lumbar spine fixation hardware Soft tissues: Visualized bowel gas pattern is normal. No suspicious soft tissue calcifications. IMPRESSION: Expected postoperative appearance of left hip arthroplasty. Dictated by: Rick Vela M.D. on 11/30/2019 at 13:46 Approved by: Rick Vela M.D. on 11/30/2019 at 13:47
[2019-11-30] MEDS: ACETAMINOPHEN 325 MG TABLET 975 MG PO ×2 (09:28→21:59)
[2019-11-30] MEDS: PREGABALIN 75 MG CAPSULE PO (09:28)
[2019-11-30] MEDS: LACTATED RINGERS 1,000 ML 42 ML IV (09:28)
--- NOTE | 2019-11-30 10:23 | PM.OP.1 ---
Operative Date/Time/Diagnoses Date of procedure: 11/30/19 Time of procedure: 10:24 Pre-op diagnosis: left hip OA Post-op diagnosis: same Procedure & Clinicians Same procedure as scheduled: Yes
[2019-11-30] MEDS: CEFAZOLIN 2 GM/100 ML FROZ.PIGGY IV ×2 (10:54→18:10)
--- NOTE | 2019-11-30 11:36 | SUR.OPER ---
Supine on padded [place] table with bilateral legs secured in padded positioning boots and suspended in positioning spars, operative leg in traction per surgeon. Head on one pillow. Arm on non-operative side secured on padded armboard <90 degrees abduction. Arm on operative side padded and resting across chest then secured with tape over sheet. Padded perineal post in place per surgeon.
[2019-11-30] MEDS: KETOROLAC 30 MG/ML VIAL IV (11:44)
[2019-11-30] MEDS: MORPHINE 4 MG/ML INJ INJ (11:45)
[2019-11-30] MEDS: TRANEXAMIC ACID 1,000 MG VIAL 2000 MG INJ ×2 (11:46→12:44)
[2019-11-30] MEDS: ROPIVACAINE 0.5% PF 5 MG/ML 20ML VIAL 60 ML INJ (11:46)
[2019-11-30] MEDS: SODIUM CHLORIDE IRRIG SOLUTION 250 ML, POVIDONE-IODINE SPONGE STICKS 1 APPLIC IRR (11:47)
--- NOTE | 2019-11-30 12:59 | P.OP_ITS ---
Operative Date/Time/Diagnoses Date of procedure: 11/30/19 Time of procedure: 12:59 Pre-op diagnosis: left hip OA Post-op diagnosis: same Procedure & Clinicians Procedure: left anterior total hip arthroplasty Same procedure as scheduled: Yes Indications: Left hip osteoarthritis resistant to continue conservative measures. Surgeon: Zafar Johnson Natural Developer: Jose Davenport Anesthesia Type: General and Spinal Operative Notes Findings: Left hip osteoarthritis with [id number] changes on the weight- bearing surface of the femoral head. Large osteophytes and CAM lesion of the femoral neck. Closure Type: primary Specimen(s): none sent Prosthetic devices, grafts, tissues, transplants, or devices: Silverman [employer] Nephew 56 mm R3 three-hole cup 56 mm x 44 mm Oxinium dual mobility liner 1x 20 mm screw 1x 25mm screw Anthology Size 7 standard offset stem Dual mobility polyethylene 28 mm inside diameter by 44 mm outside diameter Oxinium 28 mm +4 head Estimated Blood Loss (mL): 300 Blood products transfused: none Procedure in detail: Patient was met in the preoperative holding area where the site and side of surgery were marked by . Informed consent had been reviewed and signed in clinic foot was reviewed again in the preoperative holding area. Patient demonstrates understanding of the risks and benefits of surgery and wishes to proceed. Patient was then brought back into the operating room where he received a spinal anesthetic use then placed supine on the [place] table. Bilateral feet were placed in [place] table boots after being well padded. He was induced under general anesthesia. The left hip was then prepped and draped in normal sterile fashion. A surgical time-out was performed verifying the site and side of surgery as well as the name of the patient. A 7 cm long incision based 2 cm distal and 1 cm lateral to the ASIS aiming towards the fibular head was made the skin with a 10. Blade. Electrocautery was used to dissect down to the layer of the tensor fascia. A new 10. Blade was used to incise the tensor fascia. At [place] clamp was placed on the medial leaflet of the tensor fascia and the tensor muscle was retracted laterally. A Meyerding was then placed over the lateral aspect of the rectus and retracted medially giving us good exposure to the ascending branches of the femoral circumflex vessels. These were coagulated using electrocautery. A Cobra was then placed over the superior neck of the femoral neck followed by a 2nd Cobra over the inferior aspect of the femoral neck. Meyerding retractor was removed and replaced with a bent Hohmann over the anterior wall of the acetabulum giving us good exposure to the anterior capsule and femoral neck. Inverse T shaped capsulotomy was performed using electrocautery and the superior and inferior leaflets were tagged with FiberWire suture. Cobras were then replaced intracapsularly giving us good exposure to the femoral neck. Based off our preoperative templated films we made our femoral neck cut with a reciprocating saw. The femur was then externally rotated 45? and a corkscrew was then used to remove the femoral head. At this point a soft tissue sleeve protector was placed and the anterior retractor over the anterior wall and a posterior retractor over the posterior wall the acetabulum were placed giving us good exposure to the acetabulum. The labrum and pulvinar were then removed using electrocautery based off of our preoperative template we started with a 46 mm Reamer. We used this to medialized with a make an up sizing by 2s until we got to 5 2 mm Reamer. This point we brought in fluoroscopy. Fluoroscopic images were matched to our preoperative template standing films by changing the inlet outlet views as well as rotation. The last 2 reamers were done under fluoroscopic guidance including a 54 and 55 mm Reamer. A 56 mm 3 hole cup was then selected. This was impacted under fluoroscopic guidance. Two screws then placed a 20 mm screw a 25 mm screw. A trial due mobility liner was then screwed into place and we turned our attention to the femoral side. A femoral elevator hook was placed under the femur the femur was then externally rotated to 110? extended to the floor and adducted. A bent Hohmann retractor was then placed over the superior aspect of the superior leaflet our capsulotomy and the capsule was released from the inner shoulder of the greater trochanter. This gave us exposure to the short external rotators. A small release the short external rotators was performed allowing the femur to come up into the incision more. The elevator hook was then elevated to get better exposure. A large retractor was then placed over the greater trochanter and a Zapata retractor was placed over the medial calcar. A canal finer was used followed by a chili pepper broach to lateralize. We then began broaching with a size 1 femoral broach upsizing by ones until we got to a size 7 which had good fit and fill and rotational stability. A calcar planed off the size 7 trial broach. We then selected a standard offset neck and a dual mobility construct with a +0 neck length. This was then reduced and taken through range of motion. Hip was stable through maximal rotation to 110? of external rotation. Is also stable with 90? of external rotation and extension to the floor. At this point fluoroscopy was brought in appears that we are a couple mm short on the operative side. The stem appeared to have good fit within the femur. The hip was then dislocated the trial components removed and our final implants were selected we turned our attention to the acetabular side remove the trial liner and placed a 44 mm inside diameter by 56 mm outside diameter Oxinium dual mobility liner. This was impacted into place. The liner was flush with the acetabular shell concentrically. Then turned our attention to the femoral side we placed our size 7 standard offset femoral stem this was malleted into place. We then constructed our dual mobility head construct on the back table which consisted of a 28 mm inside diameter by 44 mm outside diameter dual mobility polyethylene which had a 28 mm +4 oxinium head. These were pressed together using the hand pressed and the inside head had free rotation indicating that was fully pressed fit together. This was then malleted onto the trunnion the hip was then david reduced a final time and final x-rays were taken. The wound was then irrigated with Betadine solution which was left to sit for several minutes. This was then irrigated way with copious normal saline. Our local anesthetic was then infiltrated. The capsulotomy was repaired using a running Ethibond suture and our FiberWire tag sutures were removed. This layer was then irrigated a final time then turned our attention to the tensor fascia layer this was closed using 1. Vicryl in a running locking fashion followed by 2 Vicryl in interrupted fashion in the subcutaneous layer followed by 3-0 strata fix followed by Dermabond and Aquacel dressing Complications: none Post-operative Condition: stable Disposition: PACU Plan for aftercare: 24 hours post-op abx, WBAT LLE, ASA 81mg BID for 6 weeks
--- NOTE | 2019-11-30 14:25 | PC.NURSE ---
Addendum entered by Danica Segovia R.N. 11/30/19 15:05: Patient just given dilaudid 2mg and tylenol 975mg. He was shivering earlier.Given warm blankets and temp is 96.5.Patient does have and essential tremor. Pain medications seem to be helping now. Original Note: Patient is groggy and moaning. Giving patient some pudding and crackers so that he has something in his stomach, to prevent nausea from oral pain medication. He has an anterior dressing to his l.upper leg, which is an aquacel. This is cdi s any drainage. Patient is A&Ox3, but a bit groggy. CMS wnl and ppx2 to both extremities. Patient also has ivf infusing and tolerating well.
[2019-11-30] MEDS: LACTATED RINGERS 1,000 ML 125 ML IV ×2 (14:35→23:22)
[2019-11-30] MEDS: ACETAMINOPHEN 325 MG TABLET 1000 MG PO (14:36)
[2019-11-30] MEDS: HYDROMORPHONE 2 MG TABLET PO (14:38)
[2019-11-30] MEDS: ISOSORBIDE MONONITRATE ER 30 MG TABLET PO (18:05)
[2019-11-30 21:06] LABS: Add Manual Diff / Slide Review NO; Basophils Absolute Auto 0 /uL (0-100); Basophils Percent Auto 0.1 % (0-2); Eosinophils Absolute Auto 0 /uL (0-450); Hematocrit 34.6 % (41-53); Hemoglobin 11.8 g/dL (13.5-17.5); Lymphocytes Absolute Auto 400 /uL (1100-4500); Lymphocytes Percent Auto 4.6 % (25-40); Mean Corpuscular Hemoglobin 31.6 PG (26-34); Mean Corpuscular Volume 92.9 fL (80-100); Monocytes Absolute Auto 400 /uL (0-900); Monocytes Percent Auto 3.8 % (3-14); Neutrophils Absolute Auto 8800 /uL (1500-7000); Neutrophils Percent Auto 91.5 % (50-75); Platelet Count 184 X10^3/uL (150-400); Red Blood Cell Count 3.73 X10^6/uL (4.5-5.9); White Blood Cell Count 9.6 X10^3/uL (4.5-11.0)
[2019-11-30] MEDS: carvediloL 6.25 MG TABLET 3.125 MG PO (21:56)
[2019-11-30] MEDS: DOCUSATE 100 MG CAPSULE PO (21:58)
[2019-11-30] MEDS: ASPIRIN EC 81 MG TABLET PO (21:58)
[2019-12-01 00:12] VITALS: BP 109/62; PULSE 64; RESP 16; TEMP 36.3; O2SAT 97
[2019-12-01] MEDS: CEFAZOLIN 2 GM/100 ML FROZ.PIGGY IV (02:41)
[2019-12-01 04:00] VITALS: BP 122/74; PULSE 60; RESP 18; TEMP 36.2; O2SAT 100
[2019-12-01 06:02] LABS: Hematocrit 30.7 % (41-53); Hemoglobin 10.6 g/dL (13.5-17.5)
[2019-12-01 08:05] VITALS: BP 128/85; PULSE 67; RESP 18; TEMP 35.9; O2SAT 100
--- NOTE | 2019-12-01 08:07 | PC.NURSE ---
Patient is doing well this morning. L.anterior dressing on uppe extremity is cdi, with aquacel. Patient is ambulating well with walker, but still a little bit weak. He states that he does have some numbness down his legs from previous back issues. Denies pain to hip, patient will work with physical therapy and then go home.
[2019-12-01] MEDS: HYDROMORPHONE 2 MG TABLET PO (08:17)
[2019-12-01] MEDS: lisinopriL 5 MG TABLET 10 MG PO (08:18)
[2019-12-01] MEDS: carvediloL 6.25 MG TABLET 3.125 MG PO (08:18)
[2019-12-01] MEDS: ROSUVASTATIN 10 MG TABLET 20 MG PO (08:18)
[2019-12-01] MEDS: ACETAMINOPHEN 325 MG TABLET 975 MG PO (08:19)
[2019-12-01] MEDS: DOCUSATE 100 MG CAPSULE PO (08:19)
[2019-12-01] MEDS: ASPIRIN EC 81 MG TABLET PO (08:19)
--- NOTE | 2019-12-01 08:50 | PT.IIE ---
Current Diagnoses Unilateral primary osteoarthritis, left hip (11/30/19) Surgery Performed Operation Date: 11/30/19 10:45 Actual Procedures p Total Hip Arthroplasty/Anterior Approach(Left) - Zafar Johnson MD Surgical History (Last Updated 11/27/19 @ 15:21 by Lorna No, RN) History of arthroscopy of right shoulder (Acute) History of lumbar spinal fusion (Acute 02/16/19) Hx of cardiac catheterization (Acute) Hx of heart artery stent (Acute) Hx of laminectomy (Acute 12/02/17) Hx of lithotripsy (Acute) Medical History (Last Updated 11/27/19 @ 15:21 by Lorna No RN) Arthritis (Acute) Benign essential tremor (Acute) CAD (coronary artery disease) (Acute) Carotid artery stenosis (Acute) DVT (deep venous thrombosis) (Acute) HTN (hypertension) (Acute) Hyperlipidemia (Acute) Kidney stones (Acute) PAD (peripheral artery disease) (Acute) Sciatica (Acute) Sinus bradycardia (Acute) Skin cancer (Acute) Trigger thumb, left thumb (Acute) Walking pneumonia (Acute) Physical Therapy Inpatient Evaluation/Re-Eval M1 PT/OT-IP Prior Functional Status Start: 11/30/19 16:03 Freq: NEEDED Status: Active Protocol: Document 12/01/19 08:50 AB (Rec: 12/01/19 11:36 AB [id number]) Medical Review Prior Functional Status Medical History Reviewed Yes Diet/Fluid Consistency Regular Communication able to make needs known Mobility and Gait pt stated that he is modified independent with all mobilities and ambulation without AD Social History Household Members none Living Arrangements House Number of Floors (Floors) One Floor Number of Stairs To Enter/Railing? no steps to enter Home Environment High Toilet,Walk in Shower, Built-In Shower Seat Home Equipment Front Wheel Walker,Straight Cane,Shower Seat with Backrest ,Hand Held Shower,Polishing Machine Operator,Grab Bars Near Toilet,Grab Bars In Shower Employment Status Retired Additional Social History Comment pt stated that his sister and [id number] with stay and assist him at home M2 PT-IP Current Condition Start: 11/30/19 16:03 Freq: NEEDED Status: Active Protocol: Document 12/01/19 08:50 AB (Rec: 12/01/19 11:36 AB [email or web address]) Physical Therapy Current Condition Current Condition Evaluation Date 12/01/19 Treatment Diagnosis s/p L FLORENCIA anterior approach; difficulty in walking Onset Date 11/30/19 Precautions Anterior Hip Precautions No Hip Extension,No Hip External Rotation Weight Bearing Status Weight Bearing Status Weight Bear as Tolerated Allowed Weight Bearing Amount (enter % LLE WBAT or #) (%) M3 PT-IP Subjective Start: 11/30/19 16:03 Freq: NEEDED Status: Active Protocol: Document 12/01/19 08:50 AB (Rec: 12/01/19 11:36 AB [id number]) Subjective Physical Therapy Visit Type Type Initial Evaluation Visit Start Time 08:50 Visit Stop Time 09:29 Total Visit Minutes 39 Number of CAVING GUIDE Visits 0 Physical Therapy Visit Comments Patient Comments pt is agreeable to do PT Therapy Pain Assessment Pain When Pain Assessed At Rest Pain Present Pain Present Pain Reported Location left hip Intensity 3 Scale Used Numeric (0 - 10) Pain Management Techniques Modification of Treatment,Re- positioning,Timing of Activity with Medications Lower Back Intensity 7 Scale Used Numeric (0 - 10) Pain Management Techniques Modification of Treatment,Re- positioning,Timing of Activity with Medications M4 PT-IP Mobility and Gait Start: 11/30/19 16:03 Freq: NEEDED Status: Active Protocol: Document 12/01/19 08:50 AB (Rec: 12/01/19 11:36 AB [id number]) PT-Bed Mobility Assessment Supine to Sit Supine to Sit Independent Sit to Supine Sit to Supine Independent PT-Transfer Assessment Sit to and From Stand Sit to and from Stand Standby Assistance Equipment Transfer Assistive Device Gait Belt Orthotic/Prosthetic Devices or Brace: No Comments Mobility Comments educated pt on anterior hip precautions. completed bed mobility modified independent. completed sit to stand SBA and ambulated in room using FWW ~ 40 ft. pt agreed to walk in the hallway and completed ~ 125 ft using FWW SBA with cues to maintain hip precautions. pt tends to take big strides and having LLE hyperextend. pt stated that he does not like the walker and that he does not need it but stated that he knows he has to use it at home. educated pt on safety. assessed ambulation without AD and pt completed ~ 30 ft SBA to CGA. pt requested to go back to bed after session. positioned in bed. call light and table placed within reach . Gait Assessment Gait Gait Assistance Required: Standby Assistance Distance (Feet) 125 Able to Maintain Weight Bearing Status Yes During Gait Assistive Devices Assistive Device None,Gait Belt,Front Wheeled Walker Gait Deviations General Gait Pattern Antalgic,Decreased Stride Length,Decreased Feet Clearance Factors Limiting Gait Function Factors Limiting Gait Function Decreased Activity Tolerance, Decreased Strength,Pain,Poor Balance,Poor Safety Awareness Comments Gait Comments pls refer to mobility section for details PT-Balance Assessment Sitting Balance and Reactions Static Sitting Balance Ability Good Dynamic Sitting Balance Ability Good Standing Balance and Reactions Static Standing Balance Ability Good Dynamic Standing Balance Ability Fair Device Used FWW M5 PT-IP Objective Assessments Start: 11/30/19 16:03 Freq: NEEDED Status: Active Protocol: Document 12/01/19 08:50 AB (Rec: 12/01/19 11:36 AB [email or web address]) Orientation Orientation/Cognition Level of Alertness Alert Orientation Name,Age,Birthday,Month,Date, Year,Day of Week,Place, Situation Language Function Ability No Deficits Noted Safety Awareness Decreased Safety Awareness Memory Description No Deficits Noted Gross Range of Motion Lower Extremity ROM Assessment Within Functional Limits Strength Lower Extremity Strength Assessment Left Impaired Hip 3+/5 Knee 4-/5 Coordination Assessment Gross Coordination Gross Coordination WNL Muscle Tone Muscle Tone WNL Yes M6 PT-IP Treatment Start: 11/30/19 16:03 Freq: NEEDED Status: Active Protocol: Document 12/01/19 08:50 AB (Rec: 12/01/19 11:36 AB [email or web address]) Physical Therapy Treatment Education Education Provided Precautions,Weight Bearing Status,Post-Op Packet,Safety M7 PT-IP Assessment and Plan Start: 11/30/19 16:03 Freq: NEEDED Status: Active Protocol: Document 12/01/19 08:50 AB (Rec: 12/01/19 11:36 AB [email or web address]) PT Summary Assessment and Plan Potential Rehabilitation Potential Good Status of Condition at Evaluation Stable Summary Impairments Pain,ROM,Strength,Balance,Bed Mobility,Transfers,Gait, Activity Tolerance Assessment Summary pt is doing well with mobility and only requires SBA with ambulation using FWW. pt requires cues for safety to maintain hip precautions. pt plans to go home and family to assist him. pt stated that he is set up for outpt PT. Pt may go home when medically stable. Goals Transfer Goal Independent,Front Wheeled Walker Gait Goal Independent,Front Wheel Walker Gait Distance 300 Other Goals ambulation without AD SBA 100 ft Days to Meet Goals 3 Frequency of Treatment Frequency Of Treatment Twice a Day Treatment Plan Physical Therapy Treatment Plan Bed Mobility Training,Transfer Training,Gait Training, Therapeutic Exercise,Balance Retraining,Post Op Education, Discharge Planning,Hot or Cold Pack,Neuromuscular Re-ed, Coordination Retraining,Manual Therapy Recommendations To Nursing Amount of Assist Needed Standby Assistance Discharge Recommendations PT Discharge Recommendations Home with Assistance, Outpatient PT Transportation Needs at Discharge Private Vehicle
--- NOTE | 2019-12-01 09:00 | P.PN_ITS ---
Subjective Subjective Date Patient Seen: 12/01/19 Time Patient Seen: 09:00 Interval history: Patient is POD# 1s/p left FLORENCIA with Dr. Johnson. Doing well. Pain controlled with Tylenol and Diluadid. He has mobilized well with PT. Voiding appropriately. Tolerating a diet. No chest pain or shortness of breath. Exam Vital Signs (past 8 hours): - 12/01/19 04:00 12/01/19 08:05 Temperature 97.1 F L 96.7 F L Pulse Rate 60 67 Respiratory Rate 18 18 Blood Pressure 122/74 128/85 Pulse Oximetry 100 100 Oxygen Delivery Method Room Air Oxygen Flow Rate 0 Narrative Exam Narrative: 74 year old male resting comfortably in bed. AAOx3. Aquacel dressing in place over left hip is CDI. Patient able to flex/extend the hip and ankle in bed. Calves soft, compressible bilaterally. Objective Labs Result Diagrams: 12/01/19 05:11 Labs: Laboratory Results - last 24 hr 11/30/19 12/01/19 21:01 05:11 WBC 9.6 RBC 3.73 L Hgb 11.8 L 10.6 L Hct 34.6 L 30.7 L MCV 92.9 MCH 31.6 MCHC 34.0 RDW 13.0 Plt Count 184 Neut % (Auto) 91.5 H Lymph % (Auto) 4.6 L [place] % (Auto) 3.8 Eos % (Auto) 0.0 L Baso % (Auto) 0.1 Neut # (Auto) 8800 H Lymph # (Auto) 400 L [place] # (Auto) 400 Eos # (Auto) 0 Baso # (Auto) 0 Assessment & Plan Assessment & Plan narrative: Patient doing well postoperatively. Will continue ASA 81mg BID for DVT prophylaxis. Script for Dilaudid and Colace provided at discharge. Follow up as scheduled outpatient in 2 weeks. Discharge to home later today pending final PT clearance. Quality VTE Deep Vein Thrombosis/Pulmonary Embolism Present on Admission: No
--- NOTE | 2019-12-01 16:40 | CM.IDA ---
Home w/spouse/family as expected, cleared by therapy to do so. No needs from this OCULAR CARE TECHNICIAN identified. Patient eager to return home, DC order already in place by [facility] [place]
== END 2019-12-01 11:49 | disposition home or self-care (01) | DRG 470 ==
LOC: OR 09:07 → AC 09:08
PROVIDERS: Admitting Provider Orthopaedic Surgery Adult Reconstructive Orthopaedic Surgery; PCP Nurse Practitioner Family; Referring Provider Orthopaedic Surgery Adult Reconstructive Orthopaedic Surgery; Visit Provider Orthopaedic Surgery Adult Reconstructive Orthopaedic Surgery
PROC: 0SRB06A Replacement of Left Hip Joint with Oxidized Zirconium on Polyethylene Synthetic Substitute, Uncemented, Open Approach (ICD-10-PCS; CPT 27130; principal; 2019-11-30 10:45)
DX: M16.12 Unilateral primary osteoarthritis, left hip (principal); M47.27 Other spondylosis with radiculopathy, lumbosacral region; I25.10 Atherosclerotic heart disease of native coronary artery without angina pectoris; G89.29 Other chronic pain; Z11.59 Encounter for screening for other viral diseases
CPT/HCPCS: 36415; 72170; 73501; 76000; 85014; 85018; 85025; 87635; 97116; 97161; C1776; J0690; J1100; J1885; J2250; J2270; J2405; J2704; J3010

== ENCOUNTER → 2020-05-26 09:34 | Outpatient (CLI) | payer MEDICARE, SELFPAY ==
[2019-11-30 15:24] VITALS: BMI 26.4
[2020-05-26] MEDS: COVID-19 VACC, Ad26(JANSSEN)/PF 0.5 ML IM (09:49)
== END ==
PROVIDERS: PCP Nurse Practitioner Family; Visit Provider Internal Medicine
DX: Z23 Encounter for immunization (principal)
CPT/HCPCS: 0031A; 91303

== ENCOUNTER 2022-08-12 06:10 | Day surgery (SDC) | payer MEDICARE, SELFPAY ==
[2019-11-30 15:24] VITALS: BMI 26.4
[2022-08-03 10:47] VITALS: BMI 27.0
[2022-08-12] VITALS (15 sets, daily range): BP systolic 108–152; BP diastolic 52–77; PULSE 56–621; RESP 3–18; TEMP 36.2–36.8; O2SAT 93–100; BMI 27.0
--- NOTE | 2022-08-12 06:16 | DI.RAD.S_ITS ---
PROCEDURE: XR HIP W PEL IF DONE RT 2V INDICATIONS: FLORENCIA TECHNIQUE: AP pelvis and lateral view of the right hip acquired. COMPARISON: [facility], [place], XR HIP W PEL IF DONE RT 2V, 08/12/2022, 9:13. FINDINGS: Bones: Patient is status post right hip arthroplasty, with hardware components in expected positions. The hip joint appears congruent. The visualized bony structures appear intact. Soft tissues: Overlying postoperative changes are noted. No suspicious soft tissue densities. IMPRESSION: Expected postoperative appearance of the right total hip arthroplasty. Dictated by: Burton Wilkins M.D. on 08/12/2022 at 11:39 Approved by: Burton Wilkins M.D. on 08/12/2022 at 11:39
[2022-08-12] MEDS: VANCOMYCIN 1,000 MG/200 ML PIGGYBACK 200 MG IV (06:50)
[2022-08-12] MEDS: ACETAMINOPHEN 325 MG TABLET 975 MG PO (07:07)
[2022-08-12] MEDS: CELECOXIB 200 MG CAPSULE PO (07:09)
--- NOTE | 2022-08-12 07:39 | PM.PREOP ---
Pre-operative Note Interval Note History & Physical reviewed/Exam performed by Physician: Yes Changes to H&P: No
--- NOTE | 2022-08-12 07:40 | PM.OP.1 ---
Operative Date/Time/Diagnoses Date of procedure: 08/12/22 Time of procedure: 08:00 Pre-op diagnosis: Severe right hip OA Post-op diagnosis: same Procedure & Clinicians Procedure: Right total hip arthroplasty anterior approach Same procedure as scheduled: Yes Indications: The patient has had progressively worsening right hip pain with radiographic changes consistent with arthritis. Non-operative management has failed and the patient has requested total hip replacement. The risks, benefits and alternatives to surgery were discussed with the patient prior to proceeding. Risks discussed included, but were not limited to, failure to relieve pain, leg length discrepancy, dislocation, stiffness, infection, nerve damage, deep venous thrombosis, pulmonary embolism, stroke, coma, heart attack, permanent paralysis and , as well as the potential need for eventual revision of the prosthetic. Surgeon: Dalia Silverman Party Plan Sales Unit Sales Leader: Hannah Garcia Anesthesia Type: General Operative Notes Findings: Severe right hip osteoarthritis, adequate stability, adequate bone Closure Type: primary Specimen(s): none sent Prosthetic devices, grafts, tissues, transplants, or devices: Silverman and Nephew 56 mm R3 cup, dual mobility 44 x 56 mm cup, size 7 standard offset anthology, 28 x -3 Oxinium head, one 6.5 mm screw Estimated Blood Loss (mL): 250 Blood products transfused: none Procedure in detail: The patient was brought to the operating room. Patient was carefully positioned in the supine position. Time-out was performed and antibiotics were given. Anesthesia was induced. He was positioned in the on the table in order to allow hyperextension of the hip. The right lower extremity was prepped and draped in a standard sterile fashion. An anterior right hip incision was made 1 fingerbreadth lateral to the anterior superior iliac spine and extended distally towards the greater trochanter. Dissection was carried out through skin and subcutaneous tissues. Superficial hemostasis was achieved. The fascia over the tensor fascia isaias was defined and incised with a knife. Two Allis clamps were used to grasp the fascia. Tensor fascia isaias was retracted laterally. A gelpi retractor was placed. Dissection was carried out down along the neck. The circumflex vessels were carefully identified and cauterized with the Aqua Mantis. A PA was used throughout the procedure for intraoperative positioning and was essential for intraoperative retraction and adequate and successful implantation of the components as well as hemostasis. There was good visualization of the femoral neck. A Cobra was placed superior to the neck and the gluteus fibers were carefully stripped from that superior aspect of the capsule. A 2nd retractor was placed along the inferior aspect of the neck. The rectus insertion along the capsule was partially released. A 3rd retractor that was then gently placed over the rim of the acetabulum under the rectus. Capsule was carefully incised and released from the intertrochanteric line circumferentially superior to the mid sagittal line and inferiorly to the mid sagittal line until the lesser trochanter was palpable. A tag stitch was placed both in the superior and inferior limb of the capsular insertion. Along the acetabulum capsule was also released up to the mid sagittal 12:00 position. A portion of the labrum was resected. A saw was used to perform an osteotomy at the level of the intertrochanteric line and the junction of the superior femoral neck leaving approximately 1 finger breath of residual inferior neck above the lesser trochanter. A 2nd cut was made along the femoral neck at the base of the head and a napkin ring of neck was removed. Corkscrew was placed in the femoral head and the head was removed without difficulty. Retractors were then repositioned around the acetabulum. Residual labrum was resected and additional osteophytes were removed. A reamer that was 4 mm below the templated size was placed by hand in the acetabulum and it was reamed to centralize the acetabulum. It was then reamed up to 2 under the templated size and fluoroscopy was brought in to confirm the position of the reaming and depth of reaming. I reamed 1 under the anticipated size and touched the rim with line to line reaming. A trial cup was placed and noted that it was appropriately sized and fluoroscopy confirmed position and depth. The component was open and inserted without difficulty fluoroscopic imaging was used to confirm that the cup had been adequately seated and was well positioned. It was further stabilized with a single screw. Dual mobility liner was placed. The cup was tested and noted to be stable. Attention was then directed to the femur. The femur was gently hyperextended additional capsular release was performed as needed in order to allow adequate visualization of the proximal femur with elevation of the femur. Patient was placed in a hyperextended slightly adducted position with maximum external rotation. Box osteotome was used to check for any residual neck as well as sclerotic bone along the trochanter. [place] pepper was placed in the femur. Additional broaching was performed. Canal finder was used to determine the alignment of the canal and position. Size 1 broach was placed. The canal was then appropriately broached up to the templated size as long as there was adequate stability of the broach and serial advancement of the broach without excessive impingement. Specific attention was directed at avoiding varus attempting to direct the distal aspect of the broach more anteriorly and avoiding excessive anteversion. Trial reduction showed acceptable range of motion, good stability, no posterior impingement, jehovah's witness of leg length and appropriate lateral shuck. I also hyperflexed the hip and checked that there was no impingement anteriorly and there was good stability with flexion, adduction and internal rotation. Marcaine and Exparel were injected.. The stem was placed without difficulty. Repeat trial reduction and x-ray showed acceptable overall position, length, and no evidence of the femoral fracture. Final head was placed. Wound was meticulously irrigated with normal saline. The hip was reduced and additional Exparel and Marcaine were injected. The capsule was closed with interrupted nonabsorbable sutures. The fascia of the tensor was closed with interrupted and running Vicryl. No drain was placed. Any tensor fascia isaias muscle that appeared to be contused or injured which was a minimal amount was carefully resected. Capsule around the tensor was injected with Exparel and Marcaine. The skin was closed with barbed stitches for the subcutaneous tissue and skin. We also used surgical glue. The wound was dressed sterilely. Brief Betadine soak was also used and was meticulously irrigated with normal saline. Patient was transferred to recovery room in satisfactory condition. Complications: none Post-operative Condition: stable Disposition: Acute Care Plan for aftercare: The patient will be maintained on a standard total hip replacement protocol with weight bearing as tolerated and anterior hip precautions. The patient will receive Aspirin and sequential compression devices for DVT prophylaxis. The patient will be discharged home when safe for the home environment.
[2022-08-12] MEDS: CEFAZOLIN 2 GM/100 ML PREMIX 100 ML IV ×3 (07:59→23:10)
[2022-08-12] MEDS: TRANEXAMIC ACID 1,000 MG VIAL 2000 MG INJ (08:15)
--- NOTE | 2022-08-12 08:26 | SUR.OPER ---
Supine on padded [place] table with bilateral legs secured in padded positioning boots and suspended in positioning spars, operative leg in traction per surgeon. Head on one pillow. Arm on non-operative side secured on padded armboard <90 degrees abduction. Arm on operative side padded and resting across chest then secured with tape over sheet. Padded perineal post in place per surgeon.
[2022-08-12] MEDS: BUPIVACAINE LIPOSOME 266 MG/20 ML VIAL INJ (08:34)
[2022-08-12] MEDS: EPINEPHrine 1 MG/ML 0.3 MG IM (08:39)
[2022-08-12] MEDS: BUPIVACAINE 0.25% (PF) VIAL 60 ML INJ (08:40)
--- NOTE | 2022-08-12 10:21 | DI.RAD.S_ITS ---
PROCEDURE: XR HIP W PEL IF DONE RT 2V INDICATIONS: TOTAL RIGHT HIP ARTHROPLASTY TECHNIQUE: 2 view(s) of the hip acquired. COMPARISON: None. FINDINGS: Bones: Patient is status post right hip arthroplasty, with hardware components in expected positions. The hip joint appears congruent. The visualized bony structures appear intact. Soft tissues: Overlying postoperative changes are noted. No suspicious soft tissue densities. IMPRESSION: Intraoperative guidance for a right total hip arthroplasty placement. Dictated by: Burton Wilkins M.D. on 08/12/2022 at 11:15 Approved by: Burton Wilkins M.D. on 08/12/2022 at 11:15
[2022-08-12] MEDS: LACTATED RINGERS 1,000 ML 42 ML IV (10:22)
--- NOTE | 2022-08-12 11:09 | SUR.PHASEI ---
Received to PACu after general anesthesia. Airway patent, self maintained. Report from ALONSO Hurtado and Christopher Nuñez RN.
--- NOTE | 2022-08-12 11:23 | SUR.PHASEI ---
Pt transferred to room 219 by Rehan Brown RN. 1 pt chitos chanelle and pooja send with pt.
[2022-08-12] MEDS: LACTATED RINGERS 1,000 ML 100 ML IV ×2 (11:53→18:26)
[2022-08-12] MEDS: IBUPROFEN 400 MG TABLET PO ×4 (11:53→23:10)
[2022-08-12] MEDS: ACETAMINOPHEN 325 MG TABLET 650 MG PO ×3 (11:53→23:10)
[2022-08-12] MEDS: OXYCODONE IR 10 MG TABLET PO ×2 (11:53→14:50)
[2022-08-12] MEDS: HYDROMORPHONE 2 MG TABLET PO (13:00)
[2022-08-12] MEDS: hydrOXYzine pamoate 25 MG CAPSULE PO (13:01)
--- NOTE | 2022-08-12 14:20 | PT.IIE ---
Current Diagnoses Unilateral primary osteoarthritis, right hip (08/12/22) Surgery Performed Operation Date: 08/12/22 07:45 Actual Procedures p Total Hip Arthroplasty/Anterior Approach(Right) - Dalia Silverman MD Surgical History (Last Updated 08/02/22 @ 10:15 by Lorna No, RN) History of arthroscopy of right shoulder History of lumbar spinal fusion (02/16/19) History of total left hip replacement (11/30/19) History of urologic surgery Hx of cardiac cath (2020) Hx of cardiac catheterization Hx of heart artery stent Hx of laminectomy (12/02/17) Hx of lithotripsy S/P CABG x 5 (2020) Medical History (Last Updated 08/02/22 @ 10:37 by Lorna No RN) Arthritis Back pain Benign essential tremor CAD (coronary artery disease) Carotid artery stenosis DVT (deep venous thrombosis) History of COVID-19 (~2020) HTN (hypertension) Hyperlipidemia Kidney stones PAD (peripheral artery disease) Prostate cancer Sciatica Sinus bradycardia Skin cancer Trigger thumb, left thumb Walking pneumonia Physical Therapy Inpatient Evaluation/Re-Eval M1 PT/OT-IP Prior Functional Status Start: 08/12/22 15:30 Freq: NEEDED Status: Active Protocol: Document 08/12/22 14:20 AB (Rec: 08/12/22 15:48 AB [email or web address]) Medical Review Prior Functional Status Medical History Reviewed Yes Communication able to make needs known Mobility and Gait pt stated that he is modified independent with all mobilities and ambulation without AD but stated that everything depends on hip back pain Social History Household Members children Living Arrangements House Number of Floors (Floors) Two Floors Number of Stairs To Enter/Railing? pt stays on main level of the house has 2 steps R rail ascending to enter Home Environment High Toilet,Walk in Shower Home Equipment Front Wheel Walker,Straight Cane,Shower Seat without Backrest,Grab Bars Near Toilet ,Grab Bars In Shower Additional Social History Comment pt lives with his son, DIL and daughter M2 PT-IP Current Condition Start: 08/12/22 15:30 Freq: NEEDED Status: Active Protocol: Document 08/12/22 14:20 AB (Rec: 08/12/22 15:48 AB [email or web address]) Physical Therapy Current Condition Current Condition Evaluation Date 08/12/22 Treatment Diagnosis s/p R FLORENCIA anterior approach; difficulty in walking Onset Date 08/12/22 M3 PT-IP Subjective Start: 08/12/22 15:30 Freq: NEEDED Status: Active Protocol: Document 08/12/22 14:20 AB (Rec: 08/12/22 15:48 AB [email or web address]) Subjective Physical Therapy Visit Type Type Initial Evaluation Visit Start Time 14:20 Visit Stop Time 15:15 Total Visit Minutes 55 Number of SCIENTIFIC ILLUSTRATOR Visits 0 Physical Therapy Visit Comments Patient Comments requesting to use the toilet Therapy Pain Assessment Pain When Pain Assessed At Rest Pain Present Pain Present Pain Reported Location left hip Intensity 9 Scale Used Numeric (0 - 10) Pain Management Techniques Apply Cold,Distraction, Modification of Treatment,Re- positioning,Timing of Activity with Medications Lower Back Intensity 9 Scale Used Numeric (0 - 10) Pain Management Techniques Distraction,Modification of Treatment,Re-positioning, Timing of Activity with Medications M4 PT-IP Mobility and Gait Start: 08/12/22 15:30 Freq: NEEDED Status: Active Protocol: Document 08/12/22 14:20 AB (Rec: 08/12/22 15:48 [id number]) PT-Bed Mobility Assessment Supine to Sit Supine to Sit Minimal Assistance Sit to Supine Sit to Supine Standby Assistance PT-Transfer Assessment Sit to and From Stand Sit to and from Stand Minimal Assistance,1 Person Assistance,Use of Upper Extremities Equipment Transfer Assistive Device Gait Belt,Front Wheeled Walker Orthotic/Prosthetic Devices or Brace: No Transfers Transfer Destination Toilet Transfer Technique ambulated Transfer Ability Level of Assist Minimal Assistance,1 Person Assistance,Use of Upper Extremities Comments Mobility Comments educated pt on R anterior hip precautions. pt stated that his back dictates what he can and cannot do. educated pt on safety and be mindful of his hip precautions despite his back pain. completed supine to sit min A and cues. pt completed log roll due to back pain. cued for techniques. pt able to sit on EOB SBA. no c/o dizziness. requested to use the toilet. completed sit to stand min A and max cues for techniques. ambulated to the toilet using FWW min A and max cues. pt tends to move LLE forward first and takes a big stride on LLE. cued for hip precautions. pt able to stand using FWW for support SBA to CGA. Left pt with OT to assist with toileting needs. Pt ambulated back to the bed using fWW min A and max cues. stated that he just wants to go back to bed and does not want to walk towards the sink. OT provided pt with wet towel for hygiene care. pt completed sit to supine SBA . positioned pt in bed. call light and table placed within reach. ice pack provided. informed pt regarding caregiver training needed and gave PT permission to jordi his children to set up. Called pt 's daughter and agreed to do caregiver training. stated that pt's son will be coming in for training tomorrow at 1030 am. Pt aware. Gait Assessment Gait Gait Assistance Required: Minimum Assistance Distance (Feet) 12 Able to Maintain Weight Bearing Status Yes During Gait Assistive Devices Assistive Device Gait Belt,Front Wheeled Walker Orthotic/Prosthetic Devices or Brace: No Gait Deviations General Gait Pattern Decreased Feet Clearance Factors Limiting Gait Function Factors Limiting Gait Function Decreased Activity Tolerance, Decreased Strength,Difficulty Following Directions,Limited Range of Motion,Pain,Poor Balance,Poor Safety Awareness PT-Balance Assessment Sitting Balance and Reactions Static Sitting Balance Ability Normal Dynamic Sitting Balance Ability Good Standing Balance and Reactions Static Standing Balance Ability Fair Dynamic Standing Balance Ability Fair Device Used FWW M5 PT-IP Objective Assessments Start: 08/12/22 15:30 Freq: NEEDED Status: Active Protocol: Document 08/12/22 14:20 AB (Rec: 08/12/22 15:48 AB [id number]) Orientation Orientation/Cognition Level of Alertness Alert Orientation Name,Place,Situation Language Function Ability No Deficits Noted Safety Awareness Decreased Safety Awareness Memory Description Short Term Impaired Gross Range of Motion Lower Extremity ROM Assessment Within Functional Limits Strength Lower Extremity Strength Assessment Right Impaired Hip 4-/5 Knee 4-/5 Sensation Assessment Sensation Gross Sensation WNL Muscle Tone Muscle Tone WNL Yes M6 PT-IP Treatment Start: 08/12/22 15:30 Freq: NEEDED Status: Active Protocol: Document 08/12/22 14:20 AB (Rec: 08/12/22 15:48 AB [id number]) Physical Therapy Treatment Education Education Provided Precautions,Weight Bearing Status,Post-Op Packet,Safety M7 PT-IP Assessment and Plan Start: 08/12/22 15:30 Freq: NEEDED Status: Active Protocol: Document 08/12/22 14:20 AB (Rec: 08/12/22 15:48 AB [id number]) PT Summary Assessment and Plan Potential Rehabilitation Potential Good Status of Condition at Evaluation Evolving Summary Impairments Pain,ROM,Strength,Balance, Coordination,Cognition,Bed Mobility,Transfers,Gait, Activity Tolerance Assessment Summary Pt s/p R FLORENCIA anterior approach POD 0. pt has chronic back pain contributing to decrease mobility in addition to recent FLORENCIA. pt currently needing min A for transfers and ambulation using FWW but requires max cues for hip precautions. Caregiver training set up and son will come in tomorrow at 1030 am. Pt also needs to complete stair climbing training prior to d/c. Goals Bed Mobility Goal Independent Transfer Goal Independent,Front Wheeled Walker Gait Goal Independent,Front Wheel Walker Gait Distance 200 Other Goals up/down 2 steps R rail ascending SBA Days to Meet Goals 5 Frequency of Treatment Frequency Of Treatment Twice a Day Treatment Plan Physical Therapy Treatment Plan Bed Mobility Training,Transfer Training,Gait Training, Therapeutic Exercise,Balance Retraining,Post Op Education, Discharge Planning,Hot or Cold Pack,Neuromuscular Re-ed, Coordination Retraining,Manual Therapy Other Recommendations and Next Treatment Caregiver trainin08/13/22 @ Focus 1030 am Precautions Anterior Hip Precautions No Hip Extension,No Hip External Rotation Weight Bearing Status Weight Bearing Status Weight Bear as Tolerated Allowed Weight Bearing Amount (enter % RLE WBAT or #) (%) Recommendations To Nursing Amount of Assist Needed 1 Person Assist Discharge Recommendations PT Discharge Recommendations Home with Assistance, Outpatient PT Transportation Needs at Discharge Private Vehicle
--- NOTE | 2022-08-12 15:29 | OT.IP.EVAL ---
Current Diagnoses Unilateral primary osteoarthritis, right hip (08/12/22) Surgery Performed Operation Date: 08/12/22 07:45 Actual Procedures p Total Hip Arthroplasty/Anterior Approach(Right) - Dalia Silverman MD Past Medical History (Last Updated 08/02/22 @ 10:37 by Lorna No, RN) Arthritis Back pain Benign essential tremor CAD (coronary artery disease) Carotid artery stenosis DVT (deep venous thrombosis) History of COVID-19 (~2020) HTN (hypertension) Hyperlipidemia Kidney stones PAD (peripheral artery disease) Prostate cancer Sciatica Sinus bradycardia Skin cancer Trigger thumb, left thumb Walking pneumonia Surgical History (Last Updated 08/02/22 @ 10:15 by Lorna No RN) History of arthroscopy of right shoulder History of lumbar spinal fusion (02/16/19) History of total left hip replacement (11/30/19) History of urologic surgery Hx of cardiac cath (2020) Hx of cardiac catheterization Hx of heart artery stent Hx of laminectomy (12/02/17) Hx of lithotripsy S/P CABG x 5 (2020) Occupational Therapy Inpatient Evaluation/Re-Eval M1 PT/OT-IP Prior Functional Status Start: 08/12/22 17:22 Freq: NEEDED Status: Active Protocol: Document 08/12/22 14:31 [facility] (Rec: 08/12/22 17:44 [facility] [id number]) Medical Review Prior Functional Status Medical History Reviewed Yes Communication able to make needs known Mobility and Gait pt stated that he is modified independent with all mobilities and ambulation without AD but stated that everything depends on hip back pain Activities of Daily Living and IADL's Pt needing assist for IADL's, meds, and finances. Social History Household Members children Living Arrangements House Number of Floors (Floors) Two Floors Number of Stairs To Enter/Railing? pt stays on main level of the house has 2 steps R rail ascending to enter Home Environment High Toilet,Walk in Shower Home Equipment Front Wheel Walker,Straight Cane,Shower Seat without Backrest,Dermatology Physician,Sock Aid,Grab Bars Near Toilet,Grab Bars In Shower Additional Social History Comment pt lives with his son, DIL and daughter M2 OT-IP Current Condition Start: 08/12/22 17:22 Freq: Status: Active Protocol: Document 08/12/22 14:31 [facility] (Rec: 08/12/22 17:44 [facility] [id number]) Occupational Therapy Current Condition Current Condition Evaluation Date 08/12/22 Treatment Diagnosis S/p R FLORENCIA anterior hip sx Diagnosis Onset Date 08/12/22 Post Operative Precautions Anterior Hip Precautions No Hip Extension,No Hip External Rotation M3 OT- IP Subjective and Pain Start: 08/12/22 17:22 Freq: Status: Active Protocol: Document 08/12/22 14:31 [facility] (Rec: 08/12/22 17:44 [facility] [id number]) OT- Subjective Occupational Therapy Visit Type Type Initial Evaluation Visit Start Time 14:31 Visit Stop Time 15:29 Total Visit Minutes 58 Occupational Therapy Visit Comments Patient Comments Pt agreed to get up. Patient/Caregiver Goals To go home. OT Pain Assessment Pain When Pain Assessed At Rest Pain Present Pain Present Pain Reported Location left hip Intensity 8 Scale Used Numeric (0 - 10) M4 OT- IP ADL's Start: 08/12/22 17:22 Freq: Status: Active Protocol: Document 08/12/22 14:31 [facility] (Rec: 08/12/22 17:44 [facility] [id number]) OT [id number] Comments OT Self-Feeding Comments Not at meal time. OT ADL-Grooming Comments OT Grooming Comments Able to wash his face after set-up. OT ADL-Oral Care Comments Oral Care Comments Not performed. OT ADL-Dressing General Eval Lower Body Dressing Ability Maximum Assistance Comments OT Dressing Comments Per pt states his family will assist for his dressing needs and that he has a shift boss and sock aid. OT ADL-Toileting General Evaluation Toileting Ability Standby Assistance Comments OT Toileting Comments Pt able to stand with close SBA with FWW to urinate in the toilet. OT ADL-Bathing Comments OT Bathing Comments Not performed. M5 OT- IP IADL's Start: 08/12/22 17:22 Freq: Status: Active Protocol: Document 08/12/22 14:31 [facility] (Rec: 08/12/22 17:44 [facility] [id number]) OT-Instrumental Activities of Daily Living Deficits IADL Deficits Identified Deficits Home Safety Awareness Awareness of Need for Assistance at Home Good Awareness Medication Management Medication Management Caregiver Administers Money Management Money Management Caregiver Provides Assistance Meal Preparation Meal Preparation Caregiver Provides Assist Manager Access Manager Access Caregiver Provides Assist Driving Driving Caregiver Provides Assist M6 OT- IP Functional Cognition Start: 08/12/22 17:22 Freq: Status: Active Protocol: Document 08/12/22 14:31 [facility] (Rec: 08/12/22 17:44 [facility] [id number]) Cognitive Factors Limiting Selfcare Function Cognitive Ability Level of Alertness Alert Patient Orientation Name,Place,Situation Attention Span Ability Capable of Focused Attention, Capable of Sustained Attention Ability to Follow Commands Able to Follow One Step Commands Safety Awareness Decreased Recall of Precautions,Decreased Ability to Apply Precautions Cognitive Comments Cognitive Assessment Comments Pt needing reminders for his hip precautions, however just got out of surgery this morning. Pt able to do better after more practice and repetition. OT- Vision and Hearing OT- Vision Assessment Visual Acuity Glasses All The Time M7 OT- IP Mobility and Balance Start: 08/12/22 17:22 Freq: Status: Active Protocol: Document 08/12/22 14:31 [facility] (Rec: 08/12/22 17:44 [facility] [id number]) OT- Bed Mobility Assessment Supine to Sit Supine to Sit Assist Minimal Assistance Sit to Supine Sit to Supine Assist Standby Assistance OT-Transfer Assessment Sit to and From Stand Sit to and from Stand Minimal Assistance Transfers Transfer Ability Minimal Assistance Technique Transfer Destination Bed Transfer Technique Stand Step Pivot Devices Transfer Assistive Devices Gait Belt,Front Wheeled Walker Comments Mobility Comments DONNA to stand for balance initially and able to walk to the toilet with FWW and then CGA. Pt needing cues to step with his right foot when going forwards and then left foot when going backwards. OT- Balance Assessment Sitting Balance and Reactions Static Sitting Balance Ability Good Dynamic Sitting Balance Ability Fair Standing Balance and Reactions Static Standing Balance Ability Fair Dynamic Standing Balance Ability Fair M9 OT- IP Assessment and Plan Start: 08/12/22 17:22 Freq: Status: Active Protocol: Document 08/12/22 14:31 [facility] (Rec: 08/12/22 17:44 [facility] [id number]) OT Summary Assessment and Plan Potential Rehabilitation Potential Good Analytic Complexity at Evaluation Low Summary OT Impairments Pain,Strength,Balance, Functional Mobility,Grooming, Dressing,Toileting,Bathing, Toilet Transfers,Shower Transfers,Activity Tolerance Progress Towards Goals Slow Progress due to Pain,Slow Progress due to Medical Issues,Slow Progress due to Activity Tolerance Assessment Summary Pt low complexity and main barrier are pain and still groggy from surgery this AM and needing reminders to incorporate his hip precautions during ADL and mobility needs. Pt to go home with his family when medically stable. Goals Grooming Goal Independent Dressing Goal Minimal Assistance Toileting Goal Independent Bathing Goal Independent Toilet Transfer Goal Independent Shower Transfer Goal Standby Assistance Days to Meet Goals 5 Frequency of Treatment Frequency Of Treatment Once a Day Treatment Plan OT Treatment Plan ADL Training,Functional Mobility,Patient/Family Education,Discharge Planning Other Treatment Recommendations and Next Incorporate hip precautions Treatment Focus during dressing needs. Discharge Recommendations OT Discharge Recommendations Home with Assistance Transportation Needs at Discharge Private Vehicle
[2022-08-12] MEDS: ATORVASTATIN 20 MG TABLET 60 MG PO (16:33)
[2022-08-12] MEDS: OXYCODONE IR 5 MG TABLET PO ×3 (18:26→23:10)
[2022-08-12] MEDS: polyethylene glycoL 3350 17 GM POWD.PACK PO (18:27)
[2022-08-12] MEDS: ASPIRIN EC 81 MG TABLET PO (20:10)
[2022-08-12] MEDS: lisinopriL 20 MG TABLET PO (20:10)
[2022-08-12] MEDS: FINASTERIDE 5 MG TABLET PO (20:10)
[2022-08-12] MEDS: TAMSULOSIN 0.4 MG CAPSULE PO (20:10)
[2022-08-12] MEDS: DOCUSATE 100 MG CAPSULE PO (20:12)
[2022-08-12] MEDS: carvediloL 3.125 MG TABLET PO (20:12)
[2022-08-12] MEDS: SENNOSIDES 8.6 MG TABLET 17.2 MG PO (20:13)
--- NOTE | 2022-08-13 00:37 | PC.NURSE ---
Nightshift Pt was bladder scanned and showed to retain 564mL, Pt attempted to void with assistance 3 times with minimal output 50mL per void. Straight cath was performed, 650mL clear yellow voided. Pt tolerated well without any complaints. Will recheck with bladder scan at 0430.
[2022-08-13] MEDS: ACETAMINOPHEN 325 MG TABLET 650 MG PO (04:37)
[2022-08-13] MEDS: OXYCODONE IR 5 MG TABLET PO ×3 (04:37→10:58)
[2022-08-13 05:32] LABS: Hematocrit 31.7 % (41-53); Hemoglobin 11.2 g/dL (13.5-17.5)
[2022-08-13] MEDS: IBUPROFEN 400 MG TABLET PO ×2 (06:41→10:57)
--- NOTE | 2022-08-13 08:25 | P.DS_ITS ---
History of Present Illness History of Present Illness Date Patient Seen: 08/13/22 Time Patient Seen: 08:26 Chief complaint: Right FLORENCIA Anterior *OBS* Narrative: Operative Date/Time/Diagnoses Date of procedure: 08/12/22 Time of procedure: 08:00 Pre-op diagnosis: Severe right hip OA Post-op diagnosis: same Procedure & Clinicians Procedure: Right total hip arthroplasty anterior approach Same procedure as scheduled: Yes Indications: The patient has had progressively worsening right hip pain with radiographic changes consistent with arthritis. Non-operative management has failed and the patient has requested total hip replacement. The risks, benefits and alternatives to surgery were discussed with the patient prior to proceeding. Risks discussed included, but were not limited to, failure to relieve pain, leg length discrepancy, dislocation, stiffness, infection, nerve damage, deep venous thrombosis, pulmonary embolism, stroke, coma, heart attack, permanent paralysis and , as well as the potential need for eventual revision of the prosthetic. Surgeon: Dalia Silverman Basketball Referee: aHnnah Garcia Anesthesia Type: General Operative Notes Findings: Severe right hip osteoarthritis, adequate stability, adequate bone Closure Type: primary Specimen(s): none sent Prosthetic devices, grafts, tissues, transplants, or devices: Silverman [employer] Nephew 56 mm R3 cup, dual mobility 44 x 56 mm cup, size 7 standard offset anthology, 28 x -3 Oxinium head, one 6.5 mm screw Estimated Blood Loss (mL): 250 Blood products transfused: none Discharge Providers Provider Discharge Date: 08/13/22 Primary care physician: BIBI Swain Consults: 08/03/22 12:26 Consult to Anesthesiology Routine Comment: Consulting Provider: Anesthesiologist Reason for consultation: Surgeon requested re: Cardiac history 08/12/22 06:16 Consult to Anesthesiology Routine Comment: Consulting Provider: Anesthesiologist Reason for consultation: Regional block for post operative pain control 08/12/22 11:25 Consult to Discharge Planning Routine Comment: Consult to Occupational Therapy Evaluate & Treat Comment: Physician Instructions: Evaluate and treat Consult to Physical Therapy Evaluate & Treat Comment: Physician Instructions: post op FLORENCIA protocol Discharge provider: Hannah Garcia PA-C Summary Hospital Course Discharge Diagnosis: Right hip osteoarthritis, s/p right total hip arthroplasty Hospital Course: Mr Winter'valdez hospital course was unremarkable. On the morning of POD# 1, he was complaining of severe pain in the immediate postoperative period but was feeling much better. He was eating and voiding without difficulty. His pain was well-controlled with oral medication. He would prefer to not take narc otics, but he has oxycodone at home if he needs it. He was planning to discharge home after PT this morning. Exam Vital Signs (past 8 hours): Oxygen Delivery Method Room Air Oxygen Flow Rate 0 Narrative Exam Narrative: 5/5 strength in hip flexors, quadriceps, hamstrings, DF, PF, EHL on right. Sensation to light touch intact throughout RLE. Calf soft, compressible, nontender and without palpable cords or masses. Aquacel dressing CDI. Objective Labs 08/13/22 05:02 Labs: Laboratory Results - last 24 hr 08/13/22 05:02 Hgb 11.2 L Hct 31.7 L PFSH Medical History (Updated 08/02/22 @ 10:37 by Lorna No RN) Arthritis Back pain Benign essential tremor CAD (coronary artery disease) Carotid artery stenosis DVT (deep venous thrombosis) History of COVID-19 (~2020) HTN (hypertension) Hyperlipidemia Kidney stones PAD (peripheral artery disease) Prostate cancer Sciatica Sinus bradycardia Skin cancer Trigger thumb, left thumb Walking pneumonia Surgical History (Updated 08/02/22 @ 10:15 by Lorna No, RN) History of arthroscopy of right shoulder History of lumbar spinal fusion (02/16/19) History of total left hip replacement (11/30/19) History of urologic surgery Hx of cardiac cath (2020) Hx of cardiac catheterization Hx of heart artery stent Hx of laminectomy (12/02/17) Hx of lithotripsy S/P CABG x 5 (2020) Social History household members: children Smoking Status: Never smoker alcohol intake: current Discharge Assessment & Plan Assessment and Plan Assessment: Right hip osteoarthritis, s/p right total hip arthroplasty Plan of Treatment: Discharge home. Plavix as per home and ASA BID x 6 weeks for VTE prophylaxis. Outpt PT, f/u in office in 2 weeks as scheduled. Discharge Plan Discharge Plan Patient Disposition: Home Discharge orders & Medications Discharge Orders: Discharge (Order); Ordered 08/13/22 Ordered By: Hannah Garcia Prescriptions: Continued rosuvastatin [Crestor] 20 MG tablet 30 mg PO QPM Qty: 0 lisinopril 20 mg Tablet 20 mg PO BEDTIME clopidogrel 75 mg Tablet 75 mg PO DAILY aspirin 81 mg Tablet,Delayed Release (Dr/Ec) 81 mg PO DAILY tamsulosin 0.4 mg Capsule 0.4 mg PO BEDTIME finasteride 5 mg Tablet 5 mg PO BEDTIME Plavix 75 mg PO DAILY Patient Comments: dose unknown carvedilol 3.125 mg Tablet 3.125 mg PO BID acetaminophen 325 mg Tablet 650 mg PO Q6HR PRN (Reason: Pain, Mild (1-3)) Qty: 60 0RF Follow up/Referrals: Megan See ARNP [Primary Care Provider] - Dalia Silverman MD [Physician] - As previously scheduled (Follow up with Jose Davenport PA-C, on 08/25/2022 @ 3:10 pm at [facility] office in [place].) Diet/Activity/Treatments Diet: Diet as Tolerated Activity: Weightbearing as tolerated to right leg. Anterior hip precautions. Cold/Heat Therapy: Ice to hip as needed for pain. Skin/Wound/Dressing Care Report to your healthcare provider any signs of infection, such as:: chills, fever, night sweats, unusual drainage and unusual redness Dressing: May shower. Leave Aquacel dressing in place until follow up in office. No bathing or otherwise soaking incision. Call the office if the dressing becomes saturated inside. Visit Report/Discharge Packet Instructions: DI for Hip Replacement Stand Alone Forms: Patient Portal/API, Surgery Discharge Discharge Data Primary Care Provider: Megan See Attending Provider: Dalia Silverman Quality VTE Deep Vein Thrombosis/Pulmonary Embolism Present on Admission: No
[2022-08-13 08:30] VITALS: BP 113/69; PULSE 70; RESP 18; TEMP 36.8; O2SAT 97
[2022-08-13] MEDS: ASPIRIN EC 81 MG TABLET PO (08:55)
[2022-08-13] MEDS: CLOPIDOGREL 75 MG TABLET PO (08:55)
[2022-08-13] MEDS: DOCUSATE 100 MG CAPSULE PO (08:56)
[2022-08-13 08:57] VITALS: BP 113/69; PULSE 70
[2022-08-13] MEDS: carvediloL 3.125 MG TABLET PO (08:57)
--- NOTE | 2022-08-13 10:35 | OT.IPNOTE ---
Pt already dressed, wanting to go home, waiting on his son to come for caregiver training for steps with PT and having no further OT needs. Pt states now able to urinate on his own. Pt able to recall all his anterior precautions accurately. NO charge.
--- NOTE | 2022-08-13 12:18 | PT.IPTN ---
Current Diagnoses Unilateral primary osteoarthritis, right hip (08/12/22) Surgery Performed Operation Date: 08/12/22 07:45 Actual Procedures p Total Hip Arthroplasty/Anterior Approach(Right) - Dalia Silverman MD Physical Therapy Treatment Note M2 PT-IP Current Condition Start: 08/12/22 15:30 Freq: NEEDED Status: Active Protocol: Document 08/12/22 14:20 AB (Rec: 08/12/22 15:48 AB [id number]) Physical Therapy Current Condition Current Condition Evaluation Date 08/12/22 Treatment Diagnosis s/p R FLORENCIA anterior approach; difficulty in walking Onset Date 08/12/22 M3 PT-IP Subjective Start: 08/12/22 15:30 Freq: NEEDED Status: Active Protocol: Document 08/13/22 12:11 ES (Rec: 08/13/22 12:18 ES [id number]) Subjective Physical Therapy Visit Type Type Administrative Note Visit Start Time 11:14 Visit Stop Time 11:20 Total Visit Minutes 6 Notes Visit only; no charges Physical Therapy Visit Comments Patient Comments Patient up and dressed, getting ready to leave. Patient agreeable to do stair training with PT with family present. M4 PT-IP Mobility and Gait Start: 08/12/22 15:30 Freq: NEEDED Status: Active Protocol: Document 08/13/22 12:11 ES (Rec: 08/13/22 12:18 ES [id number]) PT-Transfer Assessment Sit to and From Stand Sit to and from Stand Independent,Use of Upper Extremities Equipment Transfer Assistive Device Front Wheeled Walker Transfers Transfer Destination Wheelchair Transfer Technique Stand Step Pivot Transfer Ability Level of Assist Independent,Use of Upper Extremities Comments Mobility Comments Patient was observed transferring from toilet to w/ c without FWW. PT educated him to always use FWW to reduce fall risk and to allow hip to heal appropriately. Gait Assessment Gait Gait Assistance Required: Independent Distance (Feet) 20 Assistive Devices Assistive Device Front Wheeled Walker Comments Gait Comments Patient declined to ambulate further. Stair Climbing Assessment Evaluation Level of Assist On Stairs Independent Devices Stair Climbing Assistive Devices Right Railing Technique/Endurance Stair Climbing Direction Ascend and Descend Stair Climbing Technique Step to Step Number of Steps Climbed 3 Stair Climbing Set # Repetitions (reps) 1 Comments Stair Climbing Comments Instructed patient in LE sequencing and patient demonstrated afterward without problem. M5 PT-IP Objective Assessments Start: 08/12/22 15:30 Freq: NEEDED Status: Active Protocol: Document 08/12/22 14:20 AB (Rec: 08/12/22 15:48 AB [id number]) Orientation Orientation/Cognition Level of Alertness Alert Orientation Name,Place,Situation Language Function Ability No Deficits Noted Safety Awareness Decreased Safety Awareness Memory Description Short Term Impaired Gross Range of Motion Lower Extremity ROM Assessment Within Functional Limits Strength Lower Extremity Strength Assessment Right Impaired Hip 4-/5 Knee 4-/5 Sensation Assessment Sensation Gross Sensation WNL Muscle Tone Muscle Tone WNL Yes M6 PT-IP Treatment Start: 08/12/22 15:30 Freq: NEEDED Status: Active Protocol: Document 08/13/22 12:11 ES (Rec: 08/13/22 12:18 ES [id number]) Physical Therapy Treatment Education Education Provided Safety M7 PT-IP Assessment and Plan Start: 08/12/22 15:30 Freq: NEEDED Status: Active Protocol: Document 08/13/22 12:11 ES (Rec: 08/13/22 12:18 ES [id number]) PT Summary Assessment and Plan Summary Assessment Summary Patient was able to demonstrate ability to manage stairs with single rail without problem. Patient was reluctant to use FWW so was educated on importance of using it at least initially to reduce risk of falls. No significant concerns for d/c home with family. Goals Bed Mobility Goal Independent Transfer Goal Independent,Front Wheeled Walker Gait Goal Independent,Front Wheel Walker Gait Distance 200 Other Goals up/down 2 steps R rail ascending SBA Days to Meet Goals 5 Frequency of Treatment Frequency Of Treatment Discharge Precautions Anterior Hip Precautions No Hip Extension,No Hip External Rotation Weight Bearing Status Weight Bearing Status Weight Bear as Tolerated Allowed Weight Bearing Amount (enter % RLE WBAT or #) (%) Discharge Recommendations PT Discharge Recommendations Home with Assistance, Outpatient PT Transportation Needs at Discharge Private Vehicle
--- NOTE | 2022-08-13 12:36 | PC.NURSE ---
Pt is A&OX4. VSS, afebrile on RA. He tolerate breakfast and is able to get up to the BR and void with SBA. He needs frequent reminding to use FWW. Aquacel to R hip is C/D/I. Son at bedside this a.m. supportive. Patient verbalizes back pain chronically 6-7/10 while R hip pain 5-6/10 pain. He reports oxycodone prn helps to manage the pain, however he feels reluctant to take the medications. He is provided with education about pain control, and side effects such as constipation and how to take prn pain medications at home. He and son at bedside verbalize understanding. He verbalizes understanding of activity limitations, medications, site care and s/sx of infection or complication. He acknowledges follow up appointment for August 25 with MD Silverman and he is escorted via w/ch by RN to private vehicle with son for discharge home at approximately 1130 a.m.
== END 2022-08-13 11:30 | disposition home or self-care (01) ==
LOC: OR 06:12 → AC 06:14
PROVIDERS: PCP Nurse Practitioner Family; Referring Provider Orthopaedic Surgery; Visit Provider Orthopaedic Surgery
PROC: (CPT 27130; principal; 2022-08-12 07:45)
DX: M16.11 Unilateral primary osteoarthritis, right hip (principal); Z86.718 Personal history of other venous thrombosis and embolism; Z79.01 Long term (current) use of anticoagulants; Z95.9 Presence of cardiac and vascular implant and graft, unspecified
CPT/HCPCS: 27130; 36415; 73502; 76000; 85014; 85018; 97162; 97165; 97530; 97535; C1776; C9290; J0171; J0690; J1100; J2405; J2704; J3010; J3490